=== PATIENT | female | born 1950 | race Caucasian/White ===

== ENCOUNTER → 2017-05-27 15:24 | Outpatient (CLI) | payer MEDICARE, OTHER, SELFPAY ==
--- NOTE | 2017-05-27 15:30 | RAD_ITS ---
STUDY: X-RAY - PELVIS REASON FOR EXAM: Female, 67 years old. Low back pain TECHNIQUE: One view of the pelvis was obtained. COMPARISON: None. FINDINGS: There is a non-specific bowel gas pattern. The soft tissues are unremarkable. There are mild degenerative changes in the lower lumbar spine. The visualized iliac wings, sacroiliac joints and sacrum are unremarkable. No abnormalities are seen in the visualized superior and inferior pubic rami. Normal appearing pubic symphysis. The visualized ischial tuberosities are unremarkable. The proximal right femur shows no significant abnormalities. The right acetabulum shows no significant abnormalities. The right hip joint is normal in appearance. The proximal left femur shows no significant abnormalities. The left acetabulum shows no significant abnormalities. The left hip joint is normal in appearance. RAD/Pelvis 1 or 2 Views IMPRESSION: No significant abnormalities are seen radiographically in the pelvis. Electronically Signed: Madelyn Gilliam MD at 16:35 EST Tel Direct: [phone], Service support ,
--- NOTE | 2017-05-27 15:35 | RAD_ITS ---
STUDY: X-RAY - LUMBAR SPINE REASON FOR EXAM: Female, 67 years old. TECHNIQUE: Five view(s) of the lumbar spine were obtained. COMPARISON: None FINDINGS: Normal lumbar lordosis. There is mild S-shaped scoliosis. There is normal alignment of the vertebrae. Osteophytes are scattered throughout the lumbar spine and visualized lower thoracic spine. Vertebral body heights are maintained. There is moderate disc space narrowing at T12-L1 and L1-2. There is mild disc space narrowing at L2-3 and L3-4. There is atherosclerotic calcification of the abdominal aorta without a demonstrated aneurysm. RAD/L/S Spine Min 4 Views IMPRESSION: There are degenerative changes scattered in the lumbar spine, most pronounced at T12-L1 and L1-2. Electronically Signed: Madelyn Gilliam MD at 16:36 EST Tel Direct: [phone], Service support ,
== END ==
PROVIDERS: Family Provider Family Medicine; PCP Family Medicine; Visit Provider Family Medicine
DX: M51.36 Other intervertebral disc degeneration, lumbar region (principal); M41.85 Other forms of scoliosis, thoracolumbar region; M25.78 Osteophyte, vertebrae; M48.05 Spinal stenosis, thoracolumbar region; R10.2 Pelvic and perineal pain
CPT/HCPCS: 72110; 72170

== ENCOUNTER → 2017-08-30 15:00 | Outpatient (CLI) | payer MEDICARE, OTHER, SELFPAY ==
--- NOTE | 2017-08-30 15:00 | DT_ITS ---
This patient was seen during an EMR downtime August 30, 2017 - September 06, 2017. This patient may have a combination of paper and electronic documentation or all paper documentation. All documentation is viewable within the e-chart portion of [facility] for each patient visit.
[2017-09-05 03:57] LABS: Red Blood Count 3.99 M/mm3 (4.2-5.4); White Blood Count 10.4 K/mm3 (4.4-11.0)
[2017-09-05 03:58] LABS: Absolute Lymphocyte Count 2.47 X10^3/ul (0.83-4.51); Absolute Neutrophil Count 6.6 X10^3/uL (2.0-7.7); Eosinophils% 3.9 % (0-5); Hematocrit 38.8 % (37-47); Lymphocyte # 2.47 X10^3/ul (4.0); Lymphocyte % 23.8 % (19-41); Mean Corp Hgb Conc 30.9 g/gl (32-36); Mean Corpuscular Hgb 30.1 pg (27.0-32.0); Mean Corpuscular Volume 97.2 fL (81-99); Mean Platelet Vol. 8.9 fl (6.2-12.0); Monocyte% 7.5 % (0-10); Neutrophil # 6.58 X10^3/uL (2.7-7.7); Neutrophil % 63.5 % (47-70); POSITIVE COUNT NO; POSITIVE DIFFERENTIAL NO; POSITIVE MORPHOLOGY NO; Platelet Count 405 K/mm3 (150-450); RBC Distribution Width CV 14.8 % (11.6-14.6); RBC Distribution Width SD 50.7 fl (35.1-43.9)
[2017-09-05 03:59] LABS: Monocyte# 0.78 X10^3/uL
[2017-09-05 04:30] LABS: BUN 13 mg/dL (7-18); Glucose 81 mg/dL (74-106)
[2017-09-05 04:31] LABS: AST(SGOT) 18 U/L (15-37); Albumin, Serum 4.1 g/dL (3.2-5.0); BUN/Creat Ratio 18.8 RATIO (10-20); Calcium,Total 9.8 mg/dL (8.5-10.1); Creatinine, Serum 0.69 mg/dL (0.55-1.02); EST Glomerular Filtration Rate 91 mL/min (>60); Est Glom Filt Rate - Afr Amer 110 mL/min (>60)
[2017-09-05 04:32] LABS: Alanine Aminotransfer ALT/SGPT 26 U/L (13-56); Alkaline Phosphatase 53 U/L (45-117)
[2017-09-05 04:33] LABS: Anion Gap 7 (5-15); Chloride 103 mmol/L (98-107); Cholesterol 149 mg/dL (200); High Density Lipoprotein 48 mg/dL; Potassium 3.7 mmol/L (3.5-5.1); Sodium Level 140 mmol/L (136-145); Triglycerides 118 mg/dL; Very Low Density Lipoprotein 24 mg/dL (5-40)
[2017-09-05 04:34] LABS: LDH 199 U/L (84-246); Rheumatoid Factor < 10.0 IU/mL (<15)
[2017-09-06 10:56] LABS: Vitamin D,25 Hydroxy 56.6 ng/mL (29.95-100.01)
== END ==
PROVIDERS: Family Provider Family Medicine; PCP Family Medicine; Visit Provider Family Medicine
DX: D47.2 Monoclonal gammopathy (principal); E78.5 Hyperlipidemia, unspecified; M25.50 Pain in unspecified joint; M54.5 Low back pain; L40.9 Psoriasis, unspecified; I10 Essential (primary) hypertension; Z51.81 Encounter for therapeutic drug level monitoring
CPT/HCPCS: 36415; 80053; 80061; 81374; 82306; 83615; 84165; 84166; 85025; 86038; 86140; 86200; 86431

== ENCOUNTER → 2017-09-21 09:15 | Outpatient (CLI) | payer MEDICARE, OTHER, SELFPAY ==
[2017-09-21 09:30] VITALS: PULSE 108; PULSE 109; PULSE 110; PULSE 111; PULSE 80; PULSE 83; PULSE 95; PULSE 98; O2SAT 85; O2SAT 87; O2SAT 89; O2SAT 90; O2SAT 91; O2SAT 97
--- NOTE | 2017-09-21 17:28 | WT_ITS ---
PSN 6 Minute Walk Test - 6 Minute Walk Test 6 Minute Walk Test: 6 Minute Walk Test PSN:6-Minute Walk Test Start: 09/21/17 10: 40 Freq: Status: Active Protocol: RESP.6MINW Document 09/21/17 09:30 HG (Rec: 09/21/17 10:43 HG [id number]) 6 Minute Walk Test Date Performed 09/21/17 Time Performed 09:30 Height 5 ft 3 in Weight: 106.141 kg Weight in Pounds 234.[address]: Vonnie Patel Assistive device used: None Pre-test Oxygen Delivery Method Room Air Pulse Ox (%) 91 Pulse Rate (60-100 beats/min) 80 Dyspnea Froilan Scale (0-10) 1 Exertion Froilan Scale (6-20) 6 1st minute Oxygen Delivery Method Room Air Pulse Ox (%) 85 Pulse Rate (60-100 beats/min) 98 2nd minute Oxygen Flow Rate (L/min) (L/min) 2 Oxygen Delivery Method Nasal Cannula Pulse Ox (%) 89 Pulse Rate (60-100 beats/min) 95 3rd minute Oxygen Flow Rate (L/min) (L/min) 2 Oxygen Delivery Method Nasal Cannula Pulse Ox (%) 87 Pulse Rate (60-100 beats/min) 109 H 4th minute Oxygen Flow Rate (L/min) (L/min) 3 Oxygen Delivery Method Nasal Cannula Pulse Ox (%) 90 Pulse Rate (60-100 beats/min) 108 H 5th minute Oxygen Flow Rate (L/min) (L/min) 3 Oxygen Delivery Method Nasal Cannula Pulse Ox (%) 89 Pulse Rate (60-100 beats/min) 110 H 6th minute Oxygen Flow Rate (L/min) (L/min) 3 Oxygen Delivery Method Nasal Cannula Pulse Ox (%) 90 Pulse Rate (60-100 beats/min) 111 H Post-test Oxygen Flow Rate (L/min) (L/min) 3 Oxygen Delivery Method Nasal Cannula Pulse Ox (%) 97 Pulse Rate (60-100 beats/min) 83 Dyspnea Froilan Scale (0-10) 1 Exertion Froilan Scale (6-20) 6 Full Laps Walked 17 Partial Lap, Number of Tiles Walked 0 Total Distance Walked (ft) 1003 - Interpretation Interpretation: The patient was noted to be 91% on room air. However, patient desaturated to 85 % within the first minute. The patient required a total of 3 L nasal cannula to maintain appropriate saturations throughout testing. In total, patient ambulated 1003 feet over the course of 6 minutes with no assistive devices. Patient did require one break secondary to dyspnea. These findings are consistent with a respiratory limitation exercise tolerance. - Recommendations Recommendations: The patient requires no supplemental oxygen at rest, but should be using 3 L nasal cannula oxygen with any exertion.
== END ==
PROVIDERS: Family Provider Family Medicine; PCP Family Medicine; Visit Provider Nurse Practitioner Acute Care
DX: J44.9 Chronic obstructive pulmonary disease, unspecified (principal)
CPT/HCPCS: 94618

== ENCOUNTER → 2017-09-22 12:55 | Outpatient (CLI) | payer MEDICARE, OTHER, SELFPAY ==
--- NOTE | 2017-09-23 11:33 | PFTCOMP ---
COMPLETE PULMONARY FUNCTION TEST INTERPRETATION Brief HPI: Patient is a 67 year old female, currently under the care of Vonnie Patel, who presents to [facility] for complete pulmonary function tests secondary to diagnosis of COPD. Respiratory therapist reports good effort and reproducible results. Interpretation: Forced expiration spirometry shows a moderately-severe large airways obstructive ventilatory defect with an FEV1 of 57% predicted. There is no significant bronchodilator response by ATS criteria. Spirograms are of good quality and plateau slowly, indicating slowly emptying areas of the lungs. The respiratory flow volume loop shows decreased expiratory flow rates at all lung volumes consistent with airway obstruction. Lung volumes by body plethysmography show a normal total lung capacity at 4.8 L, 103% predicted. FRC and RV are elevated out of proportion. Lung volume measurements are consistent with air-trapping. Diffusion capacity by carbon monoxide is decreased at 66% predicted. The airway resistance is elevated. No previous pulmonary function tests were available for review. Impression: Irreversible moderately severe large airways obstructive ventilatory defect with a symmetric reduction in diffusing capacity resulting in air trapping and consistent with the diagnosis of COPD.
== END ==
PROVIDERS: Family Provider Family Medicine; PCP Family Medicine; Visit Provider Nurse Practitioner Acute Care
DX: J44.9 Chronic obstructive pulmonary disease, unspecified (principal)
CPT/HCPCS: 94060; 94726; 94729

== ENCOUNTER → 2017-09-23 09:55 | Outpatient (CLI) | payer MEDICARE, OTHER, SELFPAY ==
--- NOTE | 2017-09-23 09:57 | ECHOD_ITS ---
Version 2 Reason For Study: DYSPNEA Procedure This was a 2D Doppler, Color Flow transthoracic echocardiogram. Exam performed in department. Left Ventricle Normal LV size. Left ventricular systolic function is normal. The estimated ejection fraction is 55 %. Transmitral and pulmonary venous doppler flow suggestive of impaired relaxation of left ventricle. Transmitral diastolic flow velocities suggest mild (stage 1) diastolic dysfunction (reversed pattern). No regional wall motion abnormalities noted. Right Ventricle Normal RV size. Normal systolic function. Atria Normal left atrium. Normal right atrium. Mitral Valve Normal mitral valve. Mild (1+) eccentric mitral valve insufficiency. Tricuspid Valve Normal tricuspid valve. Mild (1+) eccentric tricuspid valve insufficiency. Pulmonary artery systolic pressure is 33 mmHg. Aortic Valve Trisinus/trileaflet aortic valve. Pulmonic Valve Normal pulmonic valve. Great Vessels Normal aortic root. The pulmonary artery is normal size. Normal inferior vena cava. Pericardium/Pleural No pericardial effusion. MMode/2D Measurements & Calculations LVIDd: 5.0 cm IVSd: 0.91 cm Ao root diam: 3.2 cm LVIDs: 3.1 cm LVPWd: 0.93 cm RVDd: 3.7 cm FS: 39.0 % LAV(MOD-bp): 51.1 ml EDV(MOD-sp4): 109.4 ml EDV(MOD-sp2): 135.0 ml LAV(MOD-bp) Indexed: 24.9 ml/m2 ESV(MOD-sp4): 38.2 ml EF(MOD-sp2): 64.1 % LAV(MOD-sp2): 43.5 ml EF(MOD-sp4): 65.1 % LAV(MOD-sp4): 55.1 ml SV(MOD-sp4): 71.2 ml SV(MOD-sp2): 86.5 ml LA A4 area: 18.6 cm2 RA A4 area: 17.1 cm2 Time Measurements MV dec time: 0.23 sec Doppler Measurements & Calculations MV E max sergio: 96.4 cm/sec Lat Peak E' Sergio: 7.4 cm/sec Med Peak E' Sergio: 6.4 cm/sec MV A max sergio: 126.4 cm/sec E/E' lat: 13.0 E/E' med: 15.1 MV E/A: 0.76 Ao V2 max: 168.8 cm/sec LV V1 max: 140.0 cm/sec TR max sergio: 266.8 cm/sec Ao max P.4 mmHg LV V1 max P.8 mmHg TR max P.5 mmHg Interpretation Summary Normal LV size. Left ventricular systolic function is normal. The estimated ejection fraction is 55 %. Transmitral and pulmonary venous doppler flow suggestive of impaired relaxation of left ventricle Transmitral diastolic flow velocities suggest mild (stage 1) diastolic dysfunction (reversed pattern). Pulmonary artery systolic pressure is 33 mmHg. Ordering Physician: Vonnie Patel Referring Physician: Vonnie Patel Performed By: Lorena Brian, DOE, RVT
== END ==
PROVIDERS: Family Provider Family Medicine; PCP Family Medicine; Visit Provider Nurse Practitioner Acute Care
DX: R06.02 Shortness of breath (principal)
CPT/HCPCS: 93306

== ENCOUNTER → 2017-10-28 10:47 | Outpatient (CLI) | payer MEDICARE, OTHER, SELFPAY ==
[2017-10-28 11:35] VITALS: PULSE 102; PULSE 106; PULSE 107; PULSE 108; PULSE 109; PULSE 80; PULSE 84; O2SAT 87; O2SAT 90; O2SAT 91; O2SAT 92; O2SAT 94; O2SAT 96
--- NOTE | 2017-10-28 13:21 | WT_ITS ---
PSN 6 Minute Walk Test - 6 Minute Walk Test 6 Minute Walk Test: 6 Minute Walk Test PSN:6-Minute Walk Test Start: 10/28/17 11: 35 Freq: Status: Active Protocol: RESP.6MINW Document 10/28/17 11:35 SMB (Rec: 10/28/17 11:39 SMB [id number]) 6 Minute Walk Test Date Performed 10/28/17 Time Performed 10:52 Height 5 ft 3 in Weight: 230 lb Weight in Pounds 230.[address]: Tyron Steward Assistive device used: None Pre-test Oxygen Delivery Method Room Air Pulse Ox (%) 94 Pulse Rate (60-100 beats/min) 80 1st minute Oxygen Delivery Method Room Air Pulse Ox (%) 87 Pulse Rate (60-100 beats/min) 107 H 2nd minute Oxygen Flow Rate (L/min) (L/min) 2 Oxygen Delivery Method Nasal Cannula Pulse Ox (%) 92 Pulse Rate (60-100 beats/min) 106 H 3rd minute Oxygen Flow Rate (L/min) (L/min) 2 Oxygen Delivery Method Nasal Cannula Pulse Ox (%) 90 Pulse Rate (60-100 beats/min) 109 H 4th minute Oxygen Flow Rate (L/min) (L/min) 2 Oxygen Delivery Method Nasal Cannula Pulse Ox (%) 91 Pulse Rate (60-100 beats/min) 102 H 5th minute Oxygen Flow Rate (L/min) (L/min) 2 Oxygen Delivery Method Nasal Cannula Pulse Ox (%) 91 Pulse Rate (60-100 beats/min) 108 H 6th minute Oxygen Flow Rate (L/min) (L/min) 2 Oxygen Delivery Method Nasal Cannula Pulse Ox (%) 92 Pulse Rate (60-100 beats/min) 108 H Post-test Oxygen Flow Rate (L/min) (L/min) 2 Oxygen Delivery Method Nasal Cannula Pulse Ox (%) 96 Pulse Rate (60-100 beats/min) 84 Dyspnea Froilan Scale (0-10) 0.5 Exertion Froilan Scale (6-20) 11 Full Laps Walked 12 Partial Lap, Number of Tiles Walked 4 Total Distance Walked (ft) 712 - Interpretation Interpretation: The patient ambulated 712 feet over the course of 6 minutes beginning on room air without assistive devices or breaks. Pretesting oxygen saturation was noted to be 94% on room air. With ambulation, the amador oxygen saturation was 87% a minute #1 of testing. 2 L of supplemental oxygen was applied and the patient was able to complete the remainder of the test, while maintaining oxygen saturations at or above 88%. The patient did develop exertional tachycardia. There was evidence of significant exertional oxygen desaturation, consistent with a pulmonary limitation to exercise tolerance. - Recommendations Recommendations: 2 L/min of supplemental oxygen should be utilized with exertion.
== END ==
PROVIDERS: Family Provider Family Medicine; PCP Family Medicine; Visit Provider Internal Medicine Critical Care Medicine
DX: J44.9 Chronic obstructive pulmonary disease, unspecified (principal)
CPT/HCPCS: 94618

== ENCOUNTER 2017-11-01 11:30 | Outpatient (RCR) | payer MEDICARE, OTHER, SELFPAY ==
--- NOTE | 2017-10-18 12:56 | HP.PTEVAL ---
Patient's Visit Information YOBANI BANUELOS is a 67 year old F referred to Physical Therapy by Ana Winslow DO with a diagnosis of low back pain, chronic pain, and radiculopathy of lumbosacral region. Date of Evaluation: 10/13/17 Physical Therapist: Rocael Reid - Visit Plan Frequency: 2x /Week Duration: 4 Weeks Plan: Start with TA activiation, progress lumbar extension progression as tolerated. HS and IT band stretching. Progress as pt. tolerates. May use modalities to reduce symptoms. - Subjective Subjective: Pt. is here today for her initial evaluation with diagnosis of low back pain, chronic pain, and radiculopathy of lumbosacral region. Pt. reports having pain for many years, but has been prgressively getting worse recently. Pt. reports previously that her physician wanted her to get an MRI, but due to be very claustrophobic she is unwilling to use an MRI. Pt. reports being curious about physician using the my eye tool to possibly view arthroscopically. I talked to patient that the physician who uses here is only currently using this device in the knee. Pt. reports her pain radiates from her back down both legs. Pt. denies N/T. Pt. denies any changes in B/B. No BLE weakness reported. Pt. is hopeful to reduce symptoms in order to get back to all recreational activities without issues or limitations. - Pain lumbar spine Pain Intensity (Out of 10): 4 Pain Intensity Range: 2, 6 B posterior thighs Pain Intensity (Out of 10): 3 Pain Intensity Range: 1, 6 - Objective POSTURE: Pt. has decreased lumbar lordosis, rounded shoulders. Pt. has normal DARLENE in stance, anterior pelvic tilt. PALPATION: Pt. has increased tenderness throughout lumbar spine and into gluteal region. Pt. also has pain at bilateral greater trochanters. NEUROLOGICAL: Pt. has normal senstation to light and sharp touch. pt. has 2+ bilateral DTR of achilles and patellar tendons. Pt. is able to rise on heels and toes without issues. ROM: Lumbar spine: flexion mod loss increase NW, ext mod loss mild decrease NB, SB R min loss increase NW, SB L nil loss NE, rotation R min loss increase NW, rotation L nil loss NE. Pt. has normal hip ROM, except tight HS and tight IT bands bilaterally. MMT: RLE- ankle 5/5 throughout; knee- ext 4+/5, flexion 4/5; hip- flexion 4/5 increase nW, abd 4/5 NE, ext 4/5. LLE-ankle 5/5 throughout; knee- ext 4+/5, flexion 4/5; hip- flexion 4/5 increase nW, abd 4/5 NE, ext 4/5. Core strength- poor. GAIT: Pt. has increased bilateral hip sway laterally during stance phase. Pt. has slight flexed posture. Pt. has no antalgic pattern, but reports increased pain with every step. STAIRS: Pt. is able to negotiate with step to pattern with 1 HR without LOB, increased pain with ascending, no pain with descending. - Special Tests L/S Slump test left side: Positive L/S Slump test right side: Positive L/S Left Straight Leg Raise: Positive L/S Right Straight Leg Raise: Positive Lumbar Standing: Flexion - Mechanical Response: No effect Lumbar Standing: Flexion - Symptoms During Testing: Increases Lumbar Standing: Flexion - Symptoms After Testing: No worse Lumbar Standing: Extension - Mechanical Response: No effect Lumbar Standing: Extension - Symptoms During Testing: Decreases Lumbar Standing: Extension - Symptoms After Testing: No better Lumbar Standing: Right Side Glides - Mechanical Response: No effect Lumbar Standing: Right Side [place] - Symptoms During Testing: No effect Lumbar Standing: Right Side [place] - Symptoms After Testing: No effect Lumbar Standing: Left Side [place] - Mechanical Response: No effect Lumbar Standing: Left Side [place] - Symptoms During Testing: No effect Lumbar Standing: Left Side [place] - Symptoms After Testing: No effect Lumbar Lying: Flexion - Mechanical Response: No effect Lumbar Lying: Flexion - Symptoms During Testing: No effect Lumbar Lying: Flexion - Symptoms After Testing: No effect Lumbar Lying: Extension - Mechanical Response: No effect Lumbar Lying: Extension - Symptoms During Testing: Decreases Lumbar Lying: Extension - Symptoms After Testing: No better Lumbar Static: Slouched Sit - Mechanical Response: No effect Lumbar Static: Slouched Sit - Symptoms During Testing: Increases Lumbar Static: Slouched Sit - Symptoms After Testing: No worse Lumbar Static: Sitting Erect - Mechanical Response: No effect Lumbar Static: Sitting Erect - Symptoms During Testing: No effect Lumbar Static: Sitting Erect - Symptoms After Testing: No effect Lumbar Static:Lying Prone in Extension - Mechanical Response: No effect Lumbar Static: Lying Prone in Extension - Sx During Testing: Decreases Lumbar Static: Lying Prone in Extension - Sx After Testing: No better - Goals Goal 1:: Pt. to be I with HEP. Goal Time Frame: 4-6 Weeks Goal 2:: Pt. to have increased lumbar ROm by 25% in all directions without increase in symptoms. Goal Time Frame: 4-6 Weeks Goal 3:: Pt. to have increased BLE and core strength by 1/2 grade to reduce stress applied to lumbar spine with all functional mobility. Goal Time Frame: 4-6 Weeks Goal 4:: Pt. to ambulate unlimited distances with 0-2/10 pain in lumbar spine and BLEs. Goal Time Frame: 4-6 Weeks Goal 5:: Pt. to sleep throughout the night without increase in symptoms allowing for increased quality of life. Goal Time Frame: 4-6 Weeks - Rehabilitation Potential Physical Therapy Diagnosis: Pt. has signs and symptoms of radiating pain from lumbosacral region, down boths legs. Pt. appears to have a positive response with extension motions this date. Pt. also has tight HS and tigh IT band coupled with BLE/core weakness. Pt. would benefit from PT to increase lumbar ROM, core/hip strength in order to reduce stress applied to lumbar spine with all functional mobility. Rehabilitation Potential: Fair - Anticipated Interventions Patient/Client Instruction: Educate patient on: Condition, Plan of Care, Risk Factors, Benefits of Fitness Program For the Purpose of:: To improve decision making, To improve self management, To prevent re-injury, To improve ability to perform tasks related to life management, To improve tolerance to ADL's Therapeutic Exercise to Include: Strength training, Power training, Endurance training, Postural training, Flexibilty training, Passive ROM, Active ROM, Dynamic Lumbar Stabilization, Rafael Exercises For the Purpose of:: To decrease pain, To increase ROM, To improve nutrient delivery to tissue, To increase oxygenation perfusion, To improve muscle performance and motor function, To improve ability to perform ADL's, To increase tolerance to activity/condition/position, To improve performance and independence with ADL's, To decrease level of supervision to perform tasks, To decrease soft tissue restriction, To increase flexibility/ROM Manual Therapy Techniques to Include: Mobilization, Functional dry needling For the Purpose of:: To decrease pain, To decrease swelling/inflammation, To increase ROM, To improve nutrient delivery to tissue, To increase oxygenation perfusion, To improve muscle performance and motor function IF ES: Yes Cryotherapy (ice pack, ice massage): Yes Thermo therapy (hot pack): Yes Ultrasound (thermal/non thermal): Yes For the Purpose of:: To decrease pain, To decrease swelling/inflammation, To increase ROM, To improve nutrient delivery to tissue, To increase oxygenation perfusion, To improve muscle performance and motor function Thank you for the opportunity to evaluate your patient. For Medicare and Medicare HMO plans, please review the plan of care and approve it. It will need to be FAXED BACK to us at [phone] for Medicare purposes. Please let me know if there are questions or concerns regarding this plan of care. Physician Signature: Date:
--- NOTE | 2017-11-01 13:24 | HP.PTREVAL_ITS ---
Ana Winslow DO, It has been my pleasure to treat YOBANI BANUELOS over the last 3 visits for low back pain, chronic pain, and radiculopathy of lumbosacral region. Please see the progress note below for an update on the physical therapy plan of care! Subjective: Pt. reports my symptoms are about the same overall. She reports being HEP compliant throughout the last 2 weeks. Pt. reports constant pain in bilateral HS and lumbar spine. She is also getting pain in anterior knees. Pt. reports ~10% better overall. Objective/Function: Pt. has been given exercises to work on neutral spine core strengthening, HS stretching, and SKTC to relieve symptoms. Pt. desires to trial these exercises on her own now. Pt. is independent with HEP and has reduced symptoms with flexion based exercises, but symptoms resume with standing positioning. She would benefit from further core strengthening to stablize her lumbar spine and reduce stress applied to lumbar spine with all functional mobility. Plan Plan: Pt. to trial SKCT and neutral spine core strengthening on her own. She continues to have distal symptoms with all walking/standing. Pt. to follow up with physician at this point in time and determine best course of action. Goals Goal 1:: Pt. to be I with HEP. Goal Time Frame: 4-6 Weeks Goal Progress: Goal Met Goal 2:: Pt. to have increased lumbar ROm by 25% in all directions without increase in symptoms. Goal Time Frame: 4-6 Weeks Goal Progress: Progressing Goal 3:: Pt. to have increased BLE and core strength by 1/2 grade to reduce stress applied to lumbar spine with all functional mobility. Goal Time Frame: 4-6 Weeks Goal Progress: Progressing Goal 4:: Pt. to ambulate unlimited distances with 0-2/10 pain in lumbar spine and BLEs. Goal Time Frame: 4-6 Weeks Goal Progress: Not Progressing Goal 5:: Pt. to sleep throughout the night without increase in symptoms allowing for increased quality of life. Goal Time Frame: 4-6 Weeks Anticipated Interventions Patient/Client Instruction: Educate patient on: Condition, Plan of Care, Risk Factors, Benefits of Fitness Program For the Purpose of:: To improve decision making, To improve self management, To prevent re-injury, To improve ability to perform tasks related to life management, To improve tolerance to ADL's Therapeutic Exercise to Include: Strength training, Power training, Endurance training, Postural training, Flexibilty training, Passive ROM, Active ROM, Dynamic Lumbar Stabilization, Rafael Exercises For the Purpose of:: To decrease pain, To increase ROM, To improve nutrient delivery to tissue, To increase oxygenation perfusion, To improve muscle performance and motor function, To improve ability to perform ADL's, To increase tolerance to activity/condition/position, To improve performance and independence with ADL's, To decrease level of supervision to perform tasks, To decrease soft tissue restriction, To increase flexibility/ROM Manual Therapy Techniques to Include: Mobilization, Functional dry needling For the Purpose of:: To decrease pain, To decrease swelling/inflammation, To increase ROM, To improve nutrient delivery to tissue, To increase oxygenation perfusion, To improve muscle performance and motor function IF ES: Yes Cryotherapy (ice pack, ice massage): Yes Thermo therapy (hot pack): Yes Ultrasound (thermal/non thermal): Yes For the Purpose of:: To decrease pain, To decrease swelling/inflammation, To increase ROM, To improve nutrient delivery to tissue, To increase oxygenation perfusion, To improve muscle performance and motor function Please do not hesitate to contact me at [phone] by phone or Fax: if you have questions or concerns regarding this new plan of care! Sincerely, Rocael Reid
--- NOTE | 2018-01-06 11:17 | HP.PT.NRP ---
HP - Discharge Summary (1) - Patient Information YOBANI BANUELOS was seen in my office for initial evaluation on 10/13/17. The following Plan of Care was established for this patient: Initial Frequency: 2x /Week Initial Duration: 4 Weeks - Anticipated Interventions Patient/Client Instruction: Educate patient on: Condition, Plan of Care, Risk Factors, Benefits of Fitness Program For the Purpose of:: To improve decision making, To improve self management, To prevent re-injury, To improve ability to perform tasks related to life management, To improve tolerance to ADL's Therapeutic Exercise to Include: Strength training, Power training, Endurance training, Postural training, Flexibilty training, Passive ROM, Active ROM, Dynamic Lumbar Stabilization, Rafael Exercises For the Purpose of:: To decrease pain, To increase ROM, To improve nutrient delivery to tissue, To increase oxygenation perfusion, To improve muscle performance and motor function, To improve ability to perform ADL's, To increase tolerance to activity/condition/position, To improve performance and independence with ADL's, To decrease level of supervision to perform tasks, To decrease soft tissue restriction, To increase flexibility/ROM Manual Therapy Techniques to Include: Mobilization, Functional dry needling For the Purpose of:: To decrease pain, To decrease swelling/inflammation, To increase ROM, To improve nutrient delivery to tissue, To increase oxygenation perfusion, To improve muscle performance and motor function IF ES: Yes Cryotherapy (ice pack, ice massage): Yes Thermo therapy (hot pack): Yes Ultrasound (thermal/non thermal): Yes For the Purpose of:: To decrease pain, To decrease swelling/inflammation, To increase ROM, To improve nutrient delivery to tissue, To increase oxygenation perfusion, To improve muscle performance and motor function This patient was last seen in our office 11/01/17. Pertinent comments regarding their Physical therapy will appear below: Pt. was seen in PT for her low back pain and bilateral hip pain. Pt. was making minimal progress and at our last visit pt. was to follow back up with physician. Pt. has not been seen in ~2 months and will be DC from PT at this point in time. At this point I will be discontinuing this patient from physical therapy. I would be happy to see this patient again in the future if found appropriate by the physician. Thank you! Rocael Reid
== END 2017-11-01 19:00 | disposition home or self-care (01) ==
LOC: PT 11:30
PROVIDERS: Family Provider Family Medicine; PCP Family Medicine; Visit Provider Family Medicine
DX: M54.5 Low back pain (principal); G89.29 Other chronic pain; M54.17 Radiculopathy, lumbosacral region
CPT/HCPCS: 97012; 97110; 97162

== ENCOUNTER → 2018-01-06 15:51 | Outpatient (CLI) | payer MEDICARE, OTHER, SELFPAY ==
--- NOTE | 2018-01-06 16:00 | RAD_ITS ---
STUDY: X-RAY - LEFT KNEE REASON FOR EXAM: Female, 67 years old. Left knee pain without reported injury TECHNIQUE: 4 view(s) of the knee. COMPARISON: None. FINDINGS: Normal visualized distal femur. Normal visualized proximal tibia and fibula. Normal proximal tibiofibular articulation. Normal medial femorotibial compartment. Normal lateral femorotibial compartment. 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 There is a soft tissue prominence in the suprapatellar region suggesting a small volume joint effusion. The soft tissue structures are unremarkable. RAD/Knee 4 or More Views IMPRESSION: Patellofemoral joint arthrosis. Very small joint effusion. Electronically Signed: Gomez Freed MD at 8:48 EDT , Service support ,
== END ==
PROVIDERS: Family Provider Family Medicine; PCP Family Medicine; Referring Provider Family Medicine; Visit Provider Family Medicine
DX: M17.12 Unilateral primary osteoarthritis, left knee (principal)
CPT/HCPCS: 73564

== ENCOUNTER → 2018-02-28 10:06 | Outpatient (CLI) | payer MEDICARE, OTHER, SELFPAY ==
[2018-02-28 12:41] LABS: Absolute Lymphocyte Count 2.66 X10^3/ul (0.83-4.51); Absolute Neutrophil Count 5.6 X10^3/uL (2.0-7.7); Basophil# 0.08 X10^3/uL; Basophil% 0.8 % (0-1); Eosinophil# 0.53 X10^3/uL; Eosinophils% 5.5 % (0-5); Hematocrit 37.1 % (37-47); Hemoglobin 11.9 g/dl (12.0-15.0); Lymphocyte # 2.66 X10^3/ul (4.0); Lymphocyte % 27.6 % (19-41); Mean Corp Hgb Conc 32.1 g/gl (32-36); Mean Corpuscular Hgb 30.7 pg (27.0-32.0); Mean Corpuscular Volume 95.9 fL (81-99); Mean Platelet Vol. 8.9 fl (6.2-12.0); Monocyte# 0.78 X10^3/uL; Monocyte% 8.1 % (0-10); Neutrophil # 5.55 X10^3/uL (2.7-7.7); Neutrophil % 57.7 % (47-70); Platelet Count 403 K/mm3 (150-450); RBC Distribution Width CV 14.9 % (11.6-14.6); RBC Distribution Width SD 50.3 fl (35.1-43.9); Red Blood Count 3.87 M/mm3 (4.2-5.4); White Blood Count 9.6 K/mm3 (4.4-11.0)
[2018-02-28 12:42] LABS: POSITIVE COUNT NO; POSITIVE DIFFERENTIAL NO; POSITIVE MORPHOLOGY NO
[2018-02-28 12:53] LABS: ALB/GLOB Ratio 0.9 RATIO (0.9-2.4); AST(SGOT) 15 U/L (15-37); Alanine Aminotransfer ALT/SGPT 23 U/L (13-56); Albumin, Serum 3.9 g/dL (3.2-5.0); Alkaline Phosphatase 58 U/L (45-117); Anion Gap 6 (5-15); BUN 20 mg/dL (7-18); BUN/Creat Ratio 28.3 RATIO (10-20); Calcium,Total 9.8 mg/dL (8.5-10.1); Chloride 102 mmol/L (98-107); Cholesterol 152 mg/dL (200); Creatinine, Serum 0.71 mg/dL (0.55-1.02); EST Glomerular Filtration Rate 88 mL/min (>60); Est Glom Filt Rate - Afr Amer 107 mL/min (>60); Globulin 4.4 g/dL (2.2-4.2); Glucose 75 mg/dL (74-106); High Density Lipoprotein 59 mg/dL; LDH 164 U/L (84-246); Potassium 3.5 mmol/L (3.5-5.1); Protein, Total 8.3 g/dL (6.4-8.2); Sodium Level 139 mmol/L (136-145); Triglycerides 103 mg/dL; Very Low Density Lipoprotein 21 mg/dL (5-40)
[2018-03-01 14:06] LABS: PROEL- Albumin 3.8 g/dL (2.9-4.4); PROEL- Alpha-1 Globulin 0.3 g/dL (0.0-0.4); PROEL- Gamma Globulin 1.5 g/dL (0.4-1.8); PROEL- Globulin, Total 3.8 g/dL (2.2-3.9); PROEL- TOTAL PROTEIN 7.6 g/dL (6.0-8.5)
[2018-03-02 11:20] LABS: PROELU- Albumin, Urine 28.5 % (.); PROELU- Alpha-1-Globulin,Ur 13.5 % (.); PROELU- Alpha-2-Globulin,Ur 21.3 % (.); PROELU- Beta Globulin, Ur 17.6 % (.)
[2018-03-03 10:04] LABS: Total Protein, Ur < 4.0 mg/dL (Not Estab.)
--- OUTSIDE RECORDS SUMMARY | 2018-04-23 15:03 | XMS RPT_ITS ---
:1950 Author Organization OHIP Support Name Relationship Address Phone MELARAGNO, SHANDA Unavailable [address] + [place] [address] R Unavailable Unavailable Unavailable MELARAGNO, SHANDA Unavailable [address] + [place] [address] R Unavailable Unavailable Unavailable MELARAGNO, SHANDA Unavailable [address] + [place] [address] R Unavailable Unavailable Unavailable MELARAGNO, SHANDA Unavailable [address] + [place] [address] R Unavailable Unavailable Unavailable MELARAGNO, SHANDA Unavailable [address] + [place] [address] R Unavailable Unavailable Unavailable MELARAGNO, SHANDA Unavailable [address] + [place] [address] R Unavailable Unavailable Unavailable MELARAGNO, SHANDA Unavailable [address] + [place] [address] R Unavailable Unavailable Unavailable MELARAGNO, SHANDA Unavailable [address] + [place] [address] R Unavailable Unavailable Unavailable MELARAGNO, SHANDA Unavailable [address] + [place] [address] R Unavailable Unavailable Unavailable MELARAGNO, SHANDA Unavailable [address] + [place] [address] R Unavailable Unavailable Unavailable MELARAGNO, SHANDA Unavailable [address] + [place] [address] R Unavailable Unavailable Unavailable MELARAGNO, SHANDA Unavailable [address] + [place] [address] R Unavailable Unavailable Unavailable MELARAGNO, SHANDA Unavailable [address] + [place] [address] R Unavailable Unavailable Unavailable MELARAGNO, SHANDA Unavailable [address] + [place] [address] R Unavailable Unavailable Unavailable MELARAGNO, SHANDA Unavailable [address] + [place] [address] R Unavailable Unavailable Unavailable MELARAGNO, SHANDA Unavailable [address] + [place] [address] R Unavailable Unavailable Unavailable MELARAGNO, SHANDA Unavailable [address] + [place] [address] R Unavailable Unavailable Unavailable MELARAGNO, SHANDA Unavailable [address] + [place] [address] R Unavailable Unavailable Unavailable MELARAGNO, SHANDA Unavailable [address] + [place] [address] R Unavailable Unavailable Unavailable Care Team Providers Name Role Phone MALYS, ANA A Referring Unavailable MALYS, ANA A Referring Unavailable Tiera Adame Attending Unavailable Vonnie Patel Attending Unavailable Culman, Nadia Referring Unavailable Malys, Ana Attending Unavailable Culman, Nadia Primary Care Unavailable Malys, Ana Attending Unavailable Malys, Ana Referring Unavailable Malys, Ana Primary Care Unavailable Malys, Ana Attending Unavailable Malys, Ana Primary Care Unavailable Vonnie Patel Attending Unavailable Malys, Ana Referring Unavailable Malys, Ana Attending Unavailable Malys, Ana Referring Unavailable Malys, Ana Primary Care Unavailable Vonnie Patel Attending Unavailable Amanda, Vonnie Referring Unavailable Malys, Ana Primary Care Unavailable Vonnie Patel Attending Unavailable Amanda, Vonnie Referring Unavailable Malys, Ana Primary Care Unavailable Vonnie Patel Attending Unavailable Amanda, Vonnie Referring Unavailable Malys, Ana Primary Care Unavailable Malys, Ana Attending Unavailable Malys, Ana Primary Care Unavailable Malys, Ana Referring Unavailable Tyron Steward D.O. Attending Unavailable Malys, Ana Referring Unavailable Lenin Murillo Attending Unavailable Vonnie Patel Referring Unavailable Lenin Murillo Attending Unavailable Vonnie Patel Referring Unavailable Tyron Steward D.O. Attending Unavailable Tyron Steward D.O. Referring Unavailable Malys, Ana Primary Care Unavailable Tay Adkins Attending Unavailable Tyron Steward D.O. Attending Unavailable Tyron Steward D.O. 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 / Community D47.2(ICD-10) Hospital Repository 02/28/2018 Unknown Z51.81 - Encounter Malys, Ana Active [facility] for therapeutic drug Community level monitoring / Hospital Z51.81(ICD-10) Repository 02/28/2018 Unknown E78.5 - Malys, Ana Active [facility] Hyperlipidemia, Community unspecified / Hospital E78.5(ICD-10) Repository 02/28/2018 Unknown M54.5 - Low back Malys, Ana Active [facility] pain / M54.5(ICD-10) Community Hospital Repository 02/28/2018 Unknown G89.29 - Other Malys, Ana Active [facility] chronic pain / Community G89.29(ICD-10) Hospital Repository 01/06/2018 Unknown M25.562 - Pain in Malys, Ana Active [facility] left knee / Community M25.562(ICD-10) Hospital Repository 11/04/2017 Unknown J44.9 - Chronic Tyron Steward Active [facility] obstructive D.O. [facility] pulmonary disease, Hospital unspecified / Repository J44.9(ICD-10) 09/23/2017 Unknown R06.09 - Other forms Amanda Active [facility] of dyspnea / [facility] Community R06.09(ICD-10) Hospital Repository 05/27/2017 Unknown M51.36 - Other Malys, Ana Active [facility] intervertebral disc Community degeneration, lumbar Hospital region / Repository M51.36(ICD-10) 05/06/2017 Unknown I10 - Essential Malys, Ana Active [facility] (primary) Community hypertension / Hospital I10(ICD-10) Repository PROCEDURES PROCEDURES No Procedure Records FoundRESULTS RESULTS CNCO Observed: 03/14/2018 Status: COMPLETED Source: [place] 4:38 PM [facility] REPOSITORY HNO ID: [id number] Author: Mammography Coordinator Service: (none) Author Type: Physician Type: Letter Filed: 2018 11:33 PM Note Text: March 14, 2018 PID: [id number] Aury Banuelos [address] [place] [address] Dear Ms. Banuelos, We are pleased to inform you that the results of your recent breast imaging exam on 03/14/2018 are normal. Early detection of cancer is very important. We also understand recommendations regarding breast cancer screening are controversial. Please discuss with your primary care provider which strategy is best for you and whether a mammogram is right for you. Your imaging studies and report will be kept on file at [facility] as part of your permanent medical record and are available for your continuing care. Thank you for allowing us to help in meeting your health care needs. Sincerely, Dr. Sarmiento Interpreting Radiologist [facility] (Normal over 40) PROGRESS Observed: 03/14/2018 Status: COMPLETED Source: [place] 10:17 AM [facility] REPOSITORY HNO ID: [id number] Author: Stephanie Alamo Service: (none) Author Type: (none) Type: Progress Notes Filed: 03/14/2018 10:32 AM Note Text: Aury Banuelos March 14, 2018 [id number] Double identification: Patient identified by name and Bone Density Completed. Stephanie Richardson Rt patient told of radiation jk 10:30am not CHELLE SCREENING Observed: 03/14/2018 Status: F Source: [place] 9:59 AM [facility] REPOSITORY * * *Final Report* * * DATE OF EXAM: Mar 14 2018 9:59AM WOW 0581 - CHELLE SCREENING / PROCEDURE REASON: SCR * * * * Physician Interpretation * * * * RESULT: #[id number] - CHELLE SCREENING BILATERAL DIGITAL SCREENING MAMMOGRAM WITH CAD: 03/14/2018 HISTORY: /Screening Mammogram - patient reports NO breast symptoms /Priors available for comparison. RESULT: TECHNIQUE: The study was acquired using full field digital technology and interpreted from soft copy. Current study was also evaluated with a Computer Aided Detection (CAD). Comparison is made to exams dated: 02/16/2017 mammogram, 02/07/2016 mammogram, 12/24/2014 mammogram, and 11/07/2013 mammogram - [facility]. There are scattered fibroglandular elements in both breasts. No significant masses, calcifications, or other findings are seen in either breast. There has been no significant interval change. IMPRESSION: There is no mammographic evidence of malignancy. A 1 year screening mammogram is recommended. Frances patterson/jarod:03/14/2018 16:38:53 Hospital Admitting Clerk(s): Rebecca Hernandez RT(R)(M), [facility] letter sent: Normal over 40 Mammogram BI-RADS: 1 Negative Multiple national specialty organizations have released breast cancer screening guidelines for women at average risk for developing breast cancer - guidelines that are based on both evidence and opinion, yet differ on when to start and how often to screen for breast cancer. With representation from Breast Imaging, Internal Medicine, Women's Health, Family Medicine, and Medical/Surgical Oncology, the [facility] has carefully reviewed the data and reached the following consensus: 1) All women should engage in shared decision-making with their providers to decide when to start and how often to screen; 2) All women should have the opportunity to start screening mammography at age 40; 3) For women ages 45-55, we recommend annual screening mammograms; 4) For women ages 55 and over, we support both the transition from an annual to a biennial interval if this aligns more with patient's values and preferences, or continuation with annual screening; 5) All women should discuss with their providers when to stop screening mammograms. [facility] Picker: Jarod Transcribe Date/Time: Mar 14 2018 9:39A Dictated by: FRANCES SARMIENTO MD This examination was interpreted and the report reviewed and electronically signed by: FRANCES SARMIENTO MD on Mar 14 2018 4:38PM EST [id number] CBC W/DIFF, AUTOMATED Collected: 02/28/2018 Status: F Source: [place] 10:10 AM [facility] REPOSITORY TYPE CODE TESTS RESULT OUT OF RANGE REFERENCE UNITS LAB L100.1000 4.4-11.0 K/mm3 Normal WBC 9.6 LAB L100.1200 4.2-5.4 M/mm3 Low RBC 3.87 LAB L100.1300 12.0-15.0 g/dl Low HGB 11.9 LAB L100.1400 37-47 % Normal HCT 37.1 LAB L100.1500 81-99 fL Normal MCV 95.9 LAB L100.1600 27.0-32.0 pg Normal MCH 30.7 LAB L100.1700 32-36 g/gl Normal MCHC 32.1 LAB L100.1810 11.6-14.6 % High RDW CV 14.9 LAB L100.1820 35.1-43.9 fl High RDW SD 50.3 LAB L100.1900 150-450 K/mm3 Normal PLT 403 LAB L100.2000 6.2-12.0 fl Normal MPV 8.9 LAB L100.2100 47-70 % Normal NEUT% 57.7 LAB L100.2200 19-41 % Normal LY% 27.6 LAB L100.2300 0-10 % Normal MONO% 8.1 LAB L100.2400 0-5 % High EO% 5.5 LAB L100.2500 0-1 % Normal BASO% 0.8 LAB L100.2550 0.0-0.9 % Normal IM GRAN % 0.300 Result Comment: IG% - Immature Granulocytes (promyelocytes, myelocytes and metamyelocytes) > 1% indicates that a LEFT SHIFT is Present. LAB L100.2620 2.0-7.7 X10 3/uL Normal Absolute Neut 5.6 LAB L100.2720 0.83-4.51 X10 3/ul Normal Absolute Lymph 2.66 Performed By: #### L100.0100 #### [facility] [address] [place], [address] COMPREHENSIVE METABOLIC Collected: 02/28/2018 Status: F Source: [facility] 10:10 AM [facility] REPOSITORY Order Comment: Serial Specimen #1, #2 or #3? 1 TYPE CODE TESTS RESULT OUT OF RANGE REFERENCE UNITS LAB L501.0100 74-106 mg/dL Normal GLU 75 Result Comment: Please note revised GLUCOSE reference range effective 2017. LAB L501.1000 7-18 mg/dL High BUN 20 LAB L501.1100 0.55-1.02 mg/dL Normal CREAT,SERUM 0.71 Result Comment: The validity of the calculated GFR AND GFRAA in patients over 70 years has not been determined. Clinical correlation is essential. LAB L501.1110 >60 mL/min Normal EST GFR 88 Result Comment: Non- GFR Calc LAB L501.1115 >60 mL/min Normal EST GFR - AA 107 Result Comment: GFR Calc LAB L501.1300 10-20 RATIO High BUN/CRE 28.3 LAB L501.1500 6.4-8.2 g/dL High T PROT 8.3 LAB L501.1800 3.2-5.0 g/dL Normal ALB 3.9 LAB L501.1950 2.2-4.2 g/dL High GLOB 4.4 LAB L501.2000 0.9-2.4 RATIO Normal A/G 0.9 LAB L501.2200 8.5-10.1 mg/dL CA Normal 9.8 LAB L501.4100 15-37 U/L Normal AST 15 LAB L501.4305 45-117 U/L Normal ALK P 58 LAB L501.4405 13-56 U/L Normal ALT 23 LAB L501.4600 0.20-1.00 mg/dL T Normal BILI 0.50 LAB L501.5300 136-145 mmol/L NA Normal 139 LAB L501.5600 3.5-5.1 mmol/L K Normal 3.5 LAB L501.5900 98-107 mmol/L CL Normal 102 LAB L501.6100 21.0-32.0 mmol/L Normal CO2 31.0 LAB L501.6200 5-15 Normal GAP 6 Performed By: #### L500.4050, L500.4100, L504.2610 #### [facility] [address] [place], [place], [address] LIPID PROFILE Collected: 02/28/2018 Status: F Source: [place] 10:10 AM [facility] REPOSITORY Order Comment: Serial Specimen #1, #2 or #3? 1 TYPE CODE TESTS RESULT OUT OF RANGE REFERENCE UNITS LAB L501.4900 200 mg/dL Normal CHOL 152 Result Comment: <200 mg/dL Desirable 200-240 mg/dL Borderline >240 mg/dL High Risk LAB L501.5000 mg/dL Normal TRIG 103 Result Comment: The drugs N-Acetylcysteine and Metamizole may falsely depress this assay. Serum Triglycerides Reference Interval Normal <150 mg/dL Borderline high 150 - 199 mg/dL High 200 - 499 mg/dL Very High > or = 500 mg/dL LAB L501.6400 mg/dL Normal HDL 59 Result Comment: The drugs N-Acetylcysteine and Metamizole may falsely depress this assay. Reference Range HDL <40 mg/dL Low HDL Cholesterol HDL >or= 60 mg/dL High HDL Cholesterol LAB L501.6500 0-130 mg/dL Normal LDL 72 LAB L501.6600 5-40 mg/dL Normal VLDL 21 Performed By: #### L500.4050, L500.4100, L504.2610 #### [facility] [address] [facility] [place], [address] LDH Collected: 02/28/2018 Status: F Source: [place] 10:10 AM [facility] REPOSITORY Order Comment: Serial Specimen #1, #2 or #3? 1 TYPE CODE TESTS RESULT OUT OF RANGE REFERENCE UNITS LAB L504.2610 84-246 U/L Normal LDH 164 Performed By: #### L500.4050, L500.4100, L504.2610 #### [facility] [address] [facility] [place], [address] PROTEIN ELECTROPH, S Collected: 02/28/2018 Status: F Source: [place] 10:10 AM [facility] REPOSITORY TYPE CODE TESTS RESULT OUT OF REFERENCE UNITS RANGE LAB L3100.350 6.0-8.5 g/dL 0 PROTEIN,TOTAL Normal 7.6 LAB L3100.360 2.9-4.4 g/dL 0 ALBUMIN Normal 3.8 LAB L3100.370 0.0-0.4 g/dL 0 ALPHA-1 GLOBUL Normal 0.3 LAB L3100.380 0.4-1.0 g/dL 0 ALPHA-2 GLOBUL Normal 1.0 LAB L3100.390 0.7-1.3 g/dL 0 BETA GLOBULIN Normal 1.0 LAB L3100.400 0.4-1.8 g/dL 0 GAMMA GLOBULIN Normal 1.5 LAB L3100.411 Not Observed g/dL 0 M-SPIKE High 0.8 LAB L3100.420 2.2-3.9 g/dL 0 GLOBULIN, TOTAL Normal 3.8 LAB L3100.430 0.7-1.7 0 A/G RATIO Normal 1.0 LAB L3100.432 . 0 INTERPRETATION Normal Comment Result Comment: Protein electrophoresis scan will follow via computer, mail, or watchguard delivery. LAB L3100.4340 . Normal NOTE: Comment Result Comment: The SPE pattern demonstrates a single peak (M-spike) in the gamma region which may represent monoclonal protein. This peak may also be caused by circulating immune complexes, cryoglobulins, C-reactive protein, fibrinogen or hemolysis. If clinically indicated, the presence of a monoclonal gammopathy may be confirmed by immuno-fixation, as well as an evaluation of the urine for the presence of Bence-Valle protein. Performed at: [facility] [address] [id number] Auto Crane Driver: Galileo Cowart PhD, Phone: [phone] Performed By: #### L3100.0420 #### [facility] (refer to report for specific site) refer to report for address and phone number PROTEIN ELECTRO.UR-RANDOM Collected: Status: F Source: [place] 02/28/2018 10:10 AM [facility] REPOSITORY TYPE CODE TESTS RESULT OUT OF RANGE REFERENCE UNITS LAB L3600.4100 Not Estab. mg/dL Normal < 4.0 PROTEIN,UR Result Comment: Verified by repeat analysis LAB L3600.4200 . % Normal ALBUMIN,UR 28.5 LAB L3600.4300 . % Normal RPFCA-2-QNVG,U 13.5 LAB L3600.4400 . % Normal IUCDB-4-GKTI,U 21.3 LAB L3600.4500 . % Normal BETA GLOB,U 17.6 LAB L3600.4600 . % Normal GAMMA GLOB,U 19.0 LAB L3600.4720 Normal M-SPIKE,U Result Comment: Not Observed LAB L3600.4800 . Normal NOTE Comment Result Comment: Protein electrophoresis scan will follow via computer, mail, or watchguard delivery. Performed at: [facility] [id number] [employer] Driver: Galileo Cowart PhD, Phone: [phone] Performed By: #### L3600.4000 #### [facility] (refer to report for specific site) refer to report for address and phone number [email or web address] 4 OR MORE Observed: 01/06/2018 Status: F Source: [place] VIEWS 3:55 PM [facility] REPOSITORY [facility] [address] [place] [address] Knee 4 or More Views MR#: [id number] Acct: [id number] Name: AURY BANUELOS Rep #: [id number] : 1950 F 67 From: Gomez Freed MD PCP: Ana Winslow DO Status: REG CLI Study: Knee 4 or More Views Date of Exam: 01/06/18 Exam# [id number] Ordering Dr: Ana Winslow DO STUDY: X-RAY - LEFT KNEE REASON FOR EXAM: Female, 67 years old. Left knee pain without reported injury TECHNIQUE: 4 view(s) of the knee. COMPARISON: None. FINDINGS: Normal visualized distal femur. Normal visualized proximal tibia and fibula. Normal proximal tibiofibular articulation. Normal medial femorotibial compartment. Normal lateral femorotibial compartment. 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 There is a soft tissue prominence in the suprapatellar region suggesting a small volume joint effusion. The soft tissue structures are unremarkable. RAD/Knee 4 or More Views IMPRESSION: Patellofemoral joint arthrosis. Very small joint effusion. Electronically Signed: Gomez Freed MD at 8:48 EDT , Service support , CC: Ana Winslow DO [facility] Picker: Signed RE-EVALUATION - PT (1) Observed: 11/01/2017 Status: F Source: [place] 1:24 PM [facility]PITAL REPOSITORY [facility] [place] [address] Fax REEVALUATION / MEDICARE RECERTIFICATION PHYSICAL THERAPY MR#: [id number] Acct: [id number] Name: AURY BANUELOS Rep #: [id number] : 1950 67 From: Rocael Reid DPT Referring Dr.: Ana Winslow DO Status: REG RCR Insurance: MEDICARE PART A B AARP Ana Winslow, , It has been my pleasure to treat AURY BANUELOS over the last 3 visits for low back pain, chronic pain, and radiculopathy of lumbosacral region. Please see the progress note below for an update on the physical therapy plan of care! Subjective: Pt. reports my symptoms are about the same overall. She reports being HEP compliant throughout the last 2 weeks. Pt. reports constant pain in bilateral HS and lumbar spine. She is also getting pain in anterior knees. Pt. reports 10% better overall. Objective/Function: Pt. has been given exercises to work on neutral spine core strengthening, HS stretching, and SKTC to relieve symptoms. Pt. desires to trial these exercises on her own now. Pt. is independent with HEP and has reduced symptoms with flexion based exercises, but symptoms resume with standing positioning. She would benefit from further core strengthening to stablize her lumbar spine and reduce stress applied to lumbar spine with all functional mobility. Plan Plan: Pt. to trial SKCT and neutral spine core strengthening on her own. She continues to have distal symptoms with all walking/standing. Pt. to follow up with physician at this point in time and determine best course of action. Goals Goal 1:: Pt. to be I with HEP. Goal Time Frame: 4-6 Weeks Goal Progress: Goal Met Goal 2:: Pt. to have increased lumbar ROm by 25% in all directions without increase in symptoms. Goal Time Frame: 4-6 Weeks Goal Progress: Progressing Goal 3:: Pt. to have increased BLE and core strength by 1/2 grade to reduce stress applied to lumbar spine with all functional mobility. Goal Time Frame: 4-6 Weeks Goal Progress: Progressing Goal 4:: Pt. to ambulate unlimited distances with 0-2/10 pain in lumbar spine and BLEs. Goal Time Frame: 4-6 Weeks Goal Progress: Not Progressing Goal 5:: Pt. to sleep throughout the night without increase in symptoms allowing for increased quality of life. Goal Time Frame: 4-6 Weeks Anticipated Interventions Patient/Client Instruction: Educate patient on: Condition, Plan of Care, Risk Factors, Benefits of Fitness Program For the Purpose of:: To improve decision making, To improve self management, To prevent re-injury, To improve ability to perform tasks related to life management, To improve tolerance to ADL's Therapeutic Exercise to Include: Strength training, Power training, Endurance training, Postural training, Flexibilty training, Passive ROM, Active ROM, Dynamic Lumbar Stabilization, Raafel Exercises For the Purpose of:: To decrease pain, To increase ROM, To improve nutrient delivery to tissue, To increase oxygenation perfusion, To improve muscle performance and motor function, To improve ability to perform ADL's, To increase tolerance to activity/condition/position, To improve performance and independence with ADL's, To decrease level of supervision to perform tasks, To decrease soft tissue restriction, To increase flexibility/ROM Manual Therapy Techniques to Include: Mobilization, Functional dry needling For the Purpose of:: To decrease pain, To decrease swelling/inflammation, To increase ROM, To improve nutrient delivery to tissue, To increase oxygenation perfusion, To improve muscle performance and motor function IF ES: Yes Cryotherapy (ice pack, ice massage): Yes Thermo therapy (hot pack): Yes Ultrasound (thermal/non thermal): Yes For the Purpose of:: To decrease pain, To decrease swelling/inflammation, To increase ROM, To improve nutrient delivery to tissue, To increase oxygenation perfusion, To improve muscle performance and motor function Please do not hesitate to contact me at [phone] by phone or if you have questions or concerns regarding this new plan of care! Sincerely, Rocael Reid <Electronically signed by Rocael Reid DPT> 11/01/17 1324 CC: Ana Winslow DO CLS Signed For Medicare only, by signing this I certify the plan of care. Physicians Signature Date 6 MINUTE WALK TEST Observed: 10/28/2017 Status: F Source: [place] 1:21 PM [facility] REPOSITORY [facility] [address] [place] [address] MR#: [id number] Acct: [id number] Name: AURY BANUELOS Rep #: [id number] : 1950 67 From: Tyron Steward DO Referring Dr: Tyron Steward D.O. Date: Ordering Dr: Sex: F C Location: PSN PSN 6 Minute Walk Test - 6 Minute Walk Test 6 Minute Walk Test: 6 Minute Walk Test PSN:6-Minute Walk Test Start: 10/28/17 11:35 Freq: Status: Active Protocol: RESP.6MINW Document 10/28/17 11:35 SMB (Rec: 10/28/17 11:39 SMB [id number]) 6 Minute Walk Test Date Performed 10/28/17 Time Performed 10:52 Height 5 ft 3 in Weight: 230 lb Weight in Pounds 230.[address]: Tyron Steward Assistive device used: None Pre-test Oxygen Delivery Method Room Air Pulse Ox (%) 94 Pulse Rate (60-100 beats/min) 80 1st minute Oxygen Delivery Method Room Air Pulse Ox (%) 87 Pulse Rate (60-100 beats/min) 107 H 2nd minute Oxygen Flow Rate (L/min) (L/min) 2 Oxygen Delivery Method Nasal Cannula Pulse Ox (%) 92 Pulse Rate (60-100 beats/min) 106 H 3rd minute Oxygen Flow Rate (L/min) (L/min) 2 Oxygen Delivery Method Nasal Cannula Pulse Ox (%) 90 Pulse Rate (60-100 beats/min) 109 H 4th minute Oxygen Flow Rate (L/min) (L/min) 2 Oxygen Delivery Method Nasal Cannula Pulse Ox (%) 91 Pulse Rate (60-100 beats/min) 102 H 5th minute Oxygen Flow Rate (L/min) (L/min) 2 Oxygen Delivery Method Nasal Cannula Pulse Ox (%) 91 Pulse Rate (60-100 beats/min) 108 H 6th minute Oxygen Flow Rate (L/min) (L/min) 2 Oxygen Delivery Method Nasal Cannula Pulse Ox (%) 92 Pulse Rate (60-100 beats/min) 108 H Post-test Oxygen Flow Rate (L/min) (L/min) 2 Oxygen Delivery Method Nasal Cannula Pulse Ox (%) 96 Pulse Rate (60-100 beats/min) 84 Dyspnea Froilan Scale (0-10) 0.5 Exertion Froilan Scale (6-20) 11 Full Laps Walked 12 Partial Lap, Number of Tiles Walked 4 Total Distance Walked (ft) 712 - Interpretation Interpretation: The patient ambulated 712 feet over the course of 6 minutes beginning on room air without assistive devices or breaks. Pretesting oxygen saturation was noted to be 94% on room air. With ambulation, the amador oxygen saturation was 87% a minute #1 of testing. 2 L of supplemental oxygen was applied and the patient was able to complete the remainder of the test, while maintaining oxygen saturations at or above 88%. The patient did develop exertional tachycardia. There was evidence of significant exertional oxygen desaturation, consistent with a pulmonary limitation to exercise tolerance. - Recommendations Recommendations: 2 L/min of supplemental oxygen should be utilized with exertion. 10/28/17 132 <Electronically signed by Tyron Steward DO> Date Tyron Steward DO CC: Date Dictated: 10/28/17 132 Date Transcribed: 10/28/171319 Cone Picker: Tyron Steward DO Signed PULMONARY VISIT REPORT Observed: 10/20/2017 Status: F Source: [place] 1:59 PM [facility] Pulmonary Medicine [address] [place] [address] OFFICE VISIT Date of Service: 10/20/17 MR#: [id number] Acct: [id number] Name: AURY BANUELOS Rep #: [id number] : 1950 Provider: Tyron Setward D.O. Age/Sex: 67/F [place] [facility] [place] Status: Signed Assessment AND Plan 1. Chronic obstructive pulmonary disease, unspecified COPD type J44.9 Plan Although the patient's most recent PFTs demonstrate the presence an irreversible moderately severe large airways obstructive ventilatory defect, the patient's respiratory complaints are minimal. She is currently only utilizing an albuterol rescue inhaler on an as-needed basis involuntarily discontinued the use of her maintenance inhaler medications. Given that her reliance on her short acting beta agonist is quite infrequent, we will plan to continue this therapy without change. If her reliance increases, will need to discuss with her once again about the initiation of a maintenance inhaler regimen. Orders Orders: 2. VANESA (obstructive sleep apnea) G47.33 BiPAP 13/9 cmH2O Plan The patient was recently fitted with a new hybrid mask and reports that she has been utilizing her BiPAP over the last 2 weeks. Prior to this, the patient readily admits to noncompliance with the use of nocturnal Pap therapy. Her compliance report clearly confirms this. Ongoing compliance with the use of nocturnal Pap therapy was strongly emphasized to the patient. Her compliance report will need to be reviewed at her follow-up office visit. 3. Class 3 severe obesity due to excess calories with serious comorbidity and body mass index (BMI) of 40.0 to 44.9 in adult E66.01 Plan Weight loss through dietary modification and a graded exercise regimen is strongly encouraged. 4. Tobacco dependence in remission F17.201 Plan Ongoing tobacco cessation is strongly encouraged. 5. Chronic hypoxemic respiratory failure J96.11 Plan The patient currently has a 3 L/min supplemental oxygen requirement with exertion. She is inquiring as to whether she would be a candidate for a POC device. We will plan to call [facility] [place] request. I also recommended that the patient undergo a repeat 6 minute walk test prior to her follow-up office visit with us in 3 months. Plan Detail Follow Up 3 Months (CSM) HPI HPI Comments Details: The patient is a 67-year-old female who presents to the clinic today for a routine scheduled follow-up office visit. If you recall, the patient has a smoking history of 25 pack years, having quit completely in November 2011. She has previously completed pulmonary rehabilitation. 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 Pulmonary function testing completed in December 2015 revealed evidence of a moderate obstructive ventilatory defect with no significant bronchodilator response and a normal diffusing capacity. Repeat pulmonary function testing was completed in August 2017 and revealed evidence of an irreversible moderately severe large airways obstructive ventilatory defect with associated air trapping and reduction in diffusing capacity. 6 minute walk test completed in August 2017 revealed the need for 3 L/min of supplemental oxygen with exertion. Surface echocardiogram from August 2017 revealed evidence of stage I diastolic dysfunction with an ejection fraction of 55%. Pulmonary artery systolic pressure was estimated to be 33 mmHg. The patient has known obstructive sleep apnea based off of a diagnostic polysomnogram completed in August 2016. The patient is currently prescribed nocturnal bilevel therapy with a pressure setting of 13/9 cm of water with humidification. Today, patient reports little to no overall significant change in her breathing quality. She has remained intermittently compliant with use of supplemental oxygen. She has not been evaluated in the emergency department or urgent care clinic for breathing related issues since her last office visit. She is no longer utilizing any maintenance inhalers and only relies on her Ventolin rescue inhaler on average 3 times per months. She denies the presence of a cough, chest tightness or wheezing. The patient's nocturnal compliance report was personally reviewed and demonstrated an overall compliance of 13% over the last 30 days. The patient reports that she was recently fitted with a hybrid mask by [facility] has resumed use of her BiPAP for the last 2 weeks. Prior to this, she readily admits to noncompliance with its use. Her weight has been stable. She denies fevers, chills or night sweats. Intake Vital Signs10/20/17 Height 5 ft 3 in 10/20/17 Weight: 238 lb 10/20/17 Body Mass Index (BMI) 42.1 Intake Visit Reasons: 1 M FU Chief Complaint: shortness of breath on exertion Accompanied by: Self Allergies lisinopril Allergy (Severe, Verified 10/20/17 13:07) Unknown Medications Biotin 2,500 mcg PO DAILY 06/09/16 [History Confirmed 10/20/17] Ergocalciferol [Vitamin D] 50,000 unit PO MO 06/09/16 [History Confirmed 10/20/17] Hydrocodone Bitart/Apap 5-325 [[place] 5MG-325MG] 1 tab PO Q6H PRN PRN 06/09/16 [History Confirmed 10/20/17] Meloxicam [Mobic] 15 mg PO DAILY 06/09/16 [History Confirmed 10/20/17] Multivit-Minerals/Folic Acid [One Daily Womens 50 Plus Tab] 0.4 mg PO DAILY 06/09/16 [History Confirmed 10/20/17] Turmeric/Turmeric Root Extract [Turmeric] 500 mg PO DAILY 06/09/16 [History Confirmed 10/20/17] Vitamin B Complex/Folic Acid [Super B Maxi Complex Caplet] 0.4 mg PO DAILY 06/09/16 [History Confirmed 10/20/17] Docusate Sodium [Colace] 100 mg PO BID PRN PRN #60 cap 06/19/16 [Rx Confirmed 10/20/17] Oxycodone HCl/Acetaminophen [Percocet 5/325] 1 - 2 tab PO Q4H PRN PRN #30 tab 06/19/16 [Rx Confirmed 10/20/17] hydrochlorothiazide 12.5 mg tablet 12.5 mg PO QDAY 04/16/17 [History Confirmed 10/20/17] losartan 100 mg tablet 100 mg PO QDAY 04/16/17 [History Confirmed 10/20/17] albuterol sulfate HFA 90 mcg/actuation aerosol inhaler 2 puff INHALATION Q4H PRN 08/16/17 [History Confirmed 10/20/17] umeclidinium 62.5 mcg-vilanterol 25 mcg/actuation powdr for inhalation 1 inh INHALATION Q24H #60 ea 08/16/17 [Rx Confirmed 10/20/17] tiotropium 2.5 mcg-olodaterol 2.5 mcg/actuation mist for inhalation 2 puff INHALATION Q24H #4 g 09/08/17 [Rx Confirmed 10/20/17] PFS Medical History Asthma (Chronic) Sciatica (Acute) Monoclonal gammopathy of unknown significance (Acute) HTN (hypertension) (Chronic) Vitamin D deficiency (Acute) Benign neoplasm of anal canal (Acute) Calcaneal spur (Acute) Depression (Chronic) Joint pain of leg (Acute) Skin lesion (Acute) Ichthyosis congenita (Chronic) Osteoarthritis (Chronic) Carpal tunnel syndrome (Chronic) Mild DJD (Chronic) COPD (chronic obstructive pulmonary disease) (Chronic) VANESA (obstructive sleep apnea) (Chronic) Obesity (Chronic) Tobacco dependence in remission (Chronic) Surgical History History of hysterectomy (Resolved) History of colonoscopy (Resolved) History of appendectomy (Resolved) S/P laparoscopic assisted vaginal hysterectomy (LAVH) (Acute) Family History Mother Asthma Colon cancer Aunt Colon cancer Father Cancer Social History Smoking Status: Former smoker how long ago did patient quit smokin, 1pk/day second hand exposure: Yes alcohol intake: current alcohol intake frequency: 0-2 drinks per day Alcohol type: hard liquor substance use type: does not use Review of Systems Const CONSTITUTIONAL: Negative anorexia, body ache, chills, daytime sleepiness, fever(s), night sweats, oral thrush, stops breathing during sleep, weight loss, sleeping in chair, fatigue, weight loss, weight gain, frequent colds, seasonal allergies, other, headache(s) or orthopnea EETM Ear Nose Throat Mouth: Positive hearing normal; negative hard of hearing, hoarseness, dry mouth in morning, change in vision, itchy eyes, eye pain, swallowing Difficulty, ear pain, nose bleed, headache(s), mouth pain, nasal congestion, nasal discharge, post nasal drip, sinus pain, sinus pressure, sore throat or other Cardio Cardiovascular: Negative chest pain, chest pain at rest, chest pain with activity, irregular heart rhythm, edema, shortness of breath when lying down, palpitations, murmur or other Resp Respiratory: Positive as per HPI and shortness of breath shortness of breath: Positive with activity; negative pain with cough, wheezing, chest congestion, cough, chest tightness, pain on inspiration, inhalers, increase use of rescue inhalers, snoring, apnea or other Gastro Gastrointestional: Negative bloody stools, change in appetite, difficulty swallowing, reflux, hematemesis, melena stool, loose stool, constipation or other Genitourinary: Negative blood in urine, nocturia, pain with urination or other Musc Musculoskeletal: Negative body pain, back pain, neck pain or other Skin/Breast Skin/Breast: Negative dry skin, itching, rash, unusual bruising, breast lump or other Neuro Neurological: Negative restless legs, confusion, weakness or other Psych Psychocological: Negative abnormal sleep pattern, anxiety, thoughts of hurting self/others, hopelessness or other Lymph Lymphatic: Negative easy bleeding, easy bruising, swollen lymph nodes or other Exam Const Constitutional: Positive conversant, cooperative, in no acute respiratory distress, well developed, well nourished, good hygiene, obese and wearing supplemental oxygen Head Head: Positive normocephalic and atraumatic; negative cyanosis of lips/distal nose Eyes Eye: Positive clear conjunctiva; negative nystagmus or scleral abnormality Ears Ear: Positive hearing normal; negative hard of hearing Nose Nose: Positive external nose normal and septum normal; negative epistaxis Mouth Mouth: Positive oral mucosae normal and posterior oropharynx is adequate; negative no lesions or post nasal drip Mallampati Score: III: Mallampati Score Neck Neck: Positive normal visual inspection and trachea midline; negative lymphadenopathy Chest Wall Chest: Positive symmetric chest movement Normal AP diameter. Resp lung sounds: Positive diminished diminished: Positive bialteral and normal expiratory time; negative wheezes, rhonchi or rales Cardio Cardiac: Positive regular rate, regular rhythm, S1 normal and S2 normal; negative rub, gallop or murmur GI GI: Positive normal bowel sounds and obese Soft without distention Genitourinary: Positive deferred Musc Musculoskeletal: Positive steady gait Skin Pulmonary Skin Exam: Positive intact; negative lesion, ulcers, dermal atrophy or rash Pulses Pulse: Yes Pedal pulses present: Extremities Extremities: No clubbing, No cyanosis, No edema Neuro Neurologic: Yes conversant, Yes no focal neuro deficits, Yes cooperative Lymph Lymphatic: No lymphadenopathy Psych Appearance: Positive grossly normal Mental Status: Positive mental status grossly normal Mood: Positive congruent mood Affect: Positive normal affect Coding Level of Care Code Off vis,est,level 3 Diagnoses Chronic obstructive pulmonary disease, unspecified COPD type J44.9 COPD type: unspecified COPD VANESA (obstructive sleep apnea) G47.33 Class 3 severe obesity due to excess calories with serious comorbidity and body mass index (BMI) of 40.0 to 44.9 in adult E66.01 Body mass index: BMI 40.0-44.9 Obesity classification: adult class 3 (BMI >= 40) Obesity type: due to excess calories Serious obesity comorbidity presence: with serious comorbidity Tobacco dependence in remission F17.201 Chronic hypoxemic respiratory failure J96.11 10/20/17 1359 <Electronically signed by Tyron Steward DO> Date Tyron Stewrad DO Cosigner Signature: Date (if applicable) CC: Ana Winslow DO INITAL EVALUATION (1) Observed: 10/18/2017 Status: F Source: [place] - [place] 12:56 PM [facility] [place] REPOSIT[facility] Physical [facility] [address] [place], [place] [id number] Fax REHABILITATION SERVICES INITIAL EVALUATION MR#: [id number] Acct: [id number] Name: AURY BANUELOS Rep #: [id number] : 1950 67 From: Rocael Reid DPT Referring Dr.: Ana Winslow DO Status: REG RCR Insurance: MEDICARE PART A B AARP Patient's Visit Information AURY BANUELOS is a 67 year old F referred to Physical Therapy by Ana Winslow DO with a diagnosis of low back pain, chronic pain, and radiculopathy of lumbosacral region. Date of Evaluation: 10/13/17 Physical Therapist: Rocael Reid - Visit Plan Frequency: 2x /Week Duration: 4 Weeks Plan: Start with TA activiation, progress lumbar extension progression as tolerated. HS and IT band stretching. Progress as pt. tolerates. May use modalities to reduce symptoms. - Subjective Subjective: Pt. is here today for her initial evaluation with diagnosis of low back pain, chronic pain, and radiculopathy of lumbosacral region. Pt. reports having pain for many years, but has been prgressively getting worse recently. Pt. reports previously that her physician wanted her to get an MRI, but due to be very claustrophobic she is unwilling to use an MRI. Pt. reports being curious about physician using the my eye tool to possibly view arthroscopically. I talked to patient that the physician who uses here is only currently using this device in the knee. Pt. reports her pain radiates from her back down both legs. Pt. denies N/T. Pt. denies any changes in B/B. No BLE weakness reported. Pt. is hopeful to reduce symptoms in order to get back to all recreational activities without issues or limitations. - Pain lumbar spine Pain Intensity (Out of 10): 4 Pain Intensity Range: 2, 6 B posterior thighs Pain Intensity (Out of 10): 3 Pain Intensity Range: 1, 6 - Objective POSTURE: Pt. has decreased lumbar lordosis, rounded shoulders. Pt. has normal DARLENE in stance, anterior pelvic tilt. PALPATION: Pt. has increased tenderness throughout lumbar spine and into gluteal region. Pt. also has pain at bilateral greater trochanters. NEUROLOGICAL: Pt. has normal senstation to light and sharp touch. pt. has 2+ bilateral DTR of achilles and patellar tendons. Pt. is able to rise on heels and toes without issues. ROM: Lumbar spine: flexion mod loss increase NW, ext mod loss mild decrease NB, SB R min loss increase NW, SB L nil loss NE, rotation R min loss increase NW, rotation L nil loss NE. Pt. has normal hip ROM, except tight HS and tight IT bands bilaterally. MMT: RLE- ankle 5/5 throughout; knee- ext 4+/5, flexion 4/5; hip- flexion 4/5 increase nW, abd 4/5 NE, ext 4/5. LLE- ankle 5/5 throughout; knee- ext 4+/5, flexion 4/5; hip- flexion 4/5 increase nW, abd 4/5 NE, ext 4/5. Core strength- poor. GAIT: Pt. has increased bilateral hip sway laterally during stance phase. Pt. has slight flexed posture. Pt. has no antalgic pattern, but reports increased pain with every step. STAIRS: Pt. is able to negotiate with step to pattern with 1 HR without LOB, increased pain with ascending, no pain with descending. - Special Tests L/S Slump test left side: Positive L/S Slump test right side: Positive L/S Left Straight Leg Raise: Positive L/S Right Straight Leg Raise: Positive Lumbar Standing: Flexion - Mechanical Response: No effect Lumbar Standing: Flexion - Symptoms During Testing: Increases Lumbar Standing: Flexion - Symptoms After Testing: No worse Lumbar Standing: Extension - Mechanical Response: No effect Lumbar Standing: Extension - Symptoms During Testing: Decreases Lumbar Standing: Extension - Symptoms After Testing: No better Lumbar Standing: Right Side Glides - Mechanical Response: No effect Lumbar Standing: Right Side [place] - Symptoms During Testing: No effect Lumbar Standing: Right Side [place] - Symptoms After Testing: No effect Lumbar Standing: Left Side [place] - Mechanical Response: No effect Lumbar Standing: Left Side [place] - Symptoms During Testing: No effect Lumbar Standing: Left Side [place] - Symptoms After Testing: No effect Lumbar Lying: Flexion - Mechanical Response: No effect Lumbar Lying: Flexion - Symptoms During Testing: No effect Lumbar Lying: Flexion - Symptoms After Testing: No effect Lumbar Lying: Extension - Mechanical Response: No effect Lumbar Lying: Extension - Symptoms During Testing: Decreases Lumbar Lying: Extension - Symptoms After Testing: No better Lumbar Static: Slouched Sit - Mechanical Response: No effect Lumbar Static: Slouched Sit - Symptoms During Testing: Increases Lumbar Static: Slouched Sit - Symptoms After Testing: No worse Lumbar Static: Sitting Erect - Mechanical Response: No effect Lumbar Static: Sitting Erect - Symptoms During Testing: No effect Lumbar Static: Sitting Erect - Symptoms After Testing: No effect Lumbar Static:Lying Prone in Extension - Mechanical Response: No effect Lumbar Static: Lying Prone in Extension - Sx During Testing: Decreases Lumbar Static: Lying Prone in Extension - Sx After Testing: No better - Goals Goal 1:: Pt. to be I with HEP. Goal Time Frame: 4-6 Weeks Goal 2:: Pt. to have increased lumbar ROm by 25% in all directions without increase in symptoms. Goal Time Frame: 4-6 Weeks Goal 3:: Pt. to have increased BLE and core strength by 1/2 grade to reduce stress applied to lumbar spine with all functional mobility. Goal Time Frame: 4-6 Weeks Goal 4:: Pt. to ambulate unlimited distances with 0-2/10 pain in lumbar spine and BLEs. Goal Time Frame: 4-6 Weeks Goal 5:: Pt. to sleep throughout the night without increase in symptoms allowing for increased quality of life. Goal Time Frame: 4-6 Weeks - Rehabilitation Potential Physical Therapy Diagnosis: Pt. has signs and symptoms of radiating pain from lumbosacral region, down boths legs. Pt. appears to have a positive response with extension motions this date. Pt. also has tight HS and tigh IT band coupled with BLE/core weakness. Pt. would benefit from PT to increase lumbar ROM, core/hip strength in order to reduce stress applied to lumbar spine with all functional mobility. Rehabilitation Potential: Fair - Anticipated Interventions Patient/Client Instruction: Educate patient on: Condition, Plan of Care, Risk Factors, Benefits of Fitness Program For the Purpose of:: To improve decision making, To improve self management, To prevent re-injury, To improve ability to perform tasks related to life management, To improve tolerance to ADL's Therapeutic Exercise to Include: Strength training, Power training, Endurance training, Postural training, Flexibilty training, Passive ROM, Active ROM, Dynamic Lumbar Stabilization, Rafael Exercises For the Purpose of:: To decrease pain, To increase ROM, To improve nutrient delivery to tissue, To increase oxygenation perfusion, To improve muscle performance and motor function, To improve ability to perform ADL's, To increase tolerance to activity/condition/position, To improve performance and independence with ADL's, To decrease level of supervision to perform tasks, To decrease soft tissue restriction, To increase flexibility/ROM Manual Therapy Techniques to Include: Mobilization, Functional dry needling For the Purpose of:: To decrease pain, To decrease swelling/inflammation, To increase ROM, To improve nutrient delivery to tissue, To increase oxygenation perfusion, To improve muscle performance and motor function IF ES: Yes Cryotherapy (ice pack, ice massage): Yes Thermo therapy (hot pack): Yes Ultrasound (thermal/non thermal): Yes For the Purpose of:: To decrease pain, To decrease swelling/inflammation, To increase ROM, To improve nutrient delivery to tissue, To increase oxygenation perfusion, To improve muscle performance and motor function Thank you for the opportunity to evaluate your patient. For Medicare and Medicare HMO plans, please review the plan of care and approve it. It will need to be FAXED BACK to us at [phone] for Medicare purposes. Please let me know if there are questions or concerns regarding this plan of care. Physician Signature: Date: <Electronically signed by Rocael Reid DPT> 10/18/17 1256 CC: Ana Winslow DO SANDER Signed For Medicare only, by signing this I certify the plan of care. Physicians Signature Date ECHOCARDIOGRAM COMPLETE Observed: 09/23/2017 Status: F Source: [place] 6:52 PM [facility] REPOS[facility] Cardiovascular Services [place] [id number] Echo Complete 09/23/17 1004 MR#: [id number] Acct: [id number] Name: AURY BANUELOS Rep #: [id number] : 1950 67 From: Tay Adkins MD Attending Dr: Vonnie Patel DIGITAL COMPUTER OPERATOR Status: REG CLI Ordering Dr: Vonnie Patel DIGITAL COMPUTER OPERATOR-C Date: 09/23/17 Location: [facility] Sex: F C Admitted: Version 2 Reason For Study: DYSPNEA Procedure This was a 2D Doppler, Color Flow transthoracic echocardiogram. Exam performed in department. Left Ventricle Normal LV size. Left ventricular systolic function is normal. The estimated ejection fraction is 55 %. Transmitral and pulmonary venous doppler flow suggestive of impaired relaxation of left ventricle. Transmitral diastolic flow velocities suggest mild (stage 1) diastolic dysfunction (reversed pattern). No regional wall motion abnormalities noted. Right Ventricle Normal RV size. Normal systolic function. Atria Normal left atrium. Normal right atrium. Mitral Valve Normal mitral valve. Mild (1+) eccentric mitral valve insufficiency. Tricuspid Valve Normal tricuspid valve. Mild (1+) eccentric tricuspid valve insufficiency. Pulmonary artery systolic pressure is 33 mmHg. Aortic Valve Trisinus/trileaflet aortic valve. Pulmonic Valve Normal pulmonic valve. Great Vessels Normal aortic root. The pulmonary artery is normal size. Normal inferior vena cava. Pericardium/Pleural No pericardial effusion. MMode/2D Measurements AND Calculations LVIDd: 5.0 cm IVSd: 0.91 cm Ao root diam: 3.2 cm LVIDs: 3.1 cm LVPWd: 0.93 cm RVDd: 3.7 cm FS: 39.0 % LAV(MOD-bp): 51.1 ml EDV(MOD-sp4): 109.4 ml EDV(MOD-sp2): 135.0 ml LAV(MOD-bp) Indexed: 24.9 ml/m2 ESV(MOD-sp4): 38.2 ml EF(MOD-sp2): 64.1 % LAV(MOD-sp2): 43.5 ml EF(MOD-sp4): 65.1 % LAV(MOD-sp4): 55.1 ml SV(MOD-sp4): 71.2 ml SV(MOD-sp2): 86.5 ml LA A4 area: 18.6 cm2 RA A4 area: 17.1 cm2 Time Measurements MV dec time: 0.23 sec Doppler Measurements AND Calculations MV E max sergio: 96.4 cm/sec Lat Peak E' Sergio: 7.4 cm/sec Med Peak E' Sergio: 6.4 cm/sec MV A max sergio: 126.4 cm/sec E/E' lat: 13.0 E/E' med: 15.1 MV E/A: 0.76 Ao V2 max: 168.8 cm/sec LV V1 max: 140.0 cm/sec TR max sergio: 266.8 cm/sec Ao max P.4 mmHg LV V1 max P.8 mmHg TR max P.5 mmHg Interpretation Summary Normal LV size. Left ventricular systolic function is normal. The estimated ejection fraction is 55 %. Transmitral and pulmonary venous doppler flow suggestive of impaired relaxation of left ventricle Transmitral diastolic flow velocities suggest mild (stage 1) diastolic dysfunction (reversed pattern). Pulmonary artery systolic pressure is 33 mmHg. Ordering Physician: Vonnie Patel Referring Physician: Vonnie Patel Performed By: Lorena Brian, RDCS, RVT 09/23/171851 Date Tay Adkins MD CC: Vonnie Winslow DO Date Dictated: 09/23/17 1004 Date Transcribed: 09/23/171850 Cone Picker: Signed PULMONARY FUNCTION Observed: 09/23/2017 Status: F Source: [place] REPORT COMP 11:35 AM [facility] REPOSIT[facility] Pulmonary Services/Neurology [address] [place] [address] MR#: [id number] Acct: [id number] Name: AURY BANUELOS Rep #: [id number] : 1950 67 From: Lenin Murillo MD Referring Dr: Vonnie Patel DIGITAL COMPUTER OPERATOR Status: REG CLI Ordering Dr: Date: Location: [facility] Sex: F C COMPLETE PULMONARY FUNCTION TEST INTERPRETATION Brief HPI: Patient is a 67 year old female, currently under the care of Vonnie Patel, who presents to [facility] for complete pulmonary function tests secondary to diagnosis of COPD. Respiratory therapist reports good effort and reproducible results. Interpretation: Forced expiration spirometry shows a moderately-severe large airways obstructive ventilatory defect with an FEV1 of 57% predicted. There is no significant bronchodilator response by ATS criteria. Spirograms are of good quality and plateau slowly, indicating slowly emptying areas of the lungs. The respiratory flow volume loop shows decreased expiratory flow rates at all lung volumes consistent with airway obstruction. Lung volumes by body plethysmography show a normal total lung capacity at 4.8 L, 103% predicted. FRC and RV are elevated out of proportion. Lung volume measurements are consistent with air-trapping. Diffusion capacity by carbon monoxide is decreased at 66% predicted. The airway resistance is elevated. No previous pulmonary function tests were available for review. Impression: Irreversible moderately severe large airways obstructive ventilatory defect with a symmetric reduction in diffusing capacity resulting in air trapping and consistent with the diagnosis of COPD. 09/23/17 1135 <Electronically signed by Lenin Murillo MD> Date Lenin Murillo MD CC: Lenin Murillo MD; Vonnie Winslow DO Date Dictated: 09/23/17 1133 Date Transcribed: 09/23/171132 Cone Picker: [email or web address] Signed 6 MINUTE WALK TEST Observed: 09/21/2017 Status: F Source: [place] 5:28 PM [facility] RE[facility] Pulmonary Services/Neurology [address] [place] [address] MR#: [id number] Acct: [id number] Name: AURY BANUELOS Rep #: [id number] : 1950 67 From: Lenin Murillo MD Referring Dr: Vonnie Patel NP Date: Ordering Dr: Sex: F C Location: PSN PSN 6 Minute Walk Test - 6 Minute Walk Test 6 Minute Walk Test: 6 Minute Walk Test PSN:6-Minute Walk Test Start: 09/21/17 10:40 Freq: Status: Active Protocol: RESP.6MINW Document 09/21/17 09:30 HG (Rec: 09/21/17 10:43 HG [id number]) 6 Minute Walk Test Date Performed 09/21/17 Time Performed 09:30 Height 5 ft 3 in Weight: 106.141 kg Weight in Pounds 234.[address]: Vonnie Patel Assistive device used: None Pre-test Oxygen Delivery Method Room Air Pulse Ox (%) 91 Pulse Rate (60-100 beats/min) 80 Dyspnea Froilan Scale (0-10) 1 Exertion Froilan Scale (6-20) 6 1st minute Oxygen Delivery Method Room Air Pulse Ox (%) 85 Pulse Rate (60-100 beats/min) 98 2nd minute Oxygen Flow Rate (L/min) (L/min) 2 Oxygen Delivery Method Nasal Cannula Pulse Ox (%) 89 Pulse Rate (60-100 beats/min) 95 3rd minute Oxygen Flow Rate (L/min) (L/min) 2 Oxygen Delivery Method Nasal Cannula Pulse Ox (%) 87 Pulse Rate (60-100 beats/min) 109 H 4th minute Oxygen Flow Rate (L/min) (L/min) 3 Oxygen Delivery Method Nasal Cannula Pulse Ox (%) 90 Pulse Rate (60-100 beats/min) 108 H 5th minute Oxygen Flow Rate (L/min) (L/min) 3 Oxygen Delivery Method Nasal Cannula Pulse Ox (%) 89 Pulse Rate (60-100 beats/min) 110 H 6th minute Oxygen Flow Rate (L/min) (L/min) 3 Oxygen Delivery Method Nasal Cannula Pulse Ox (%) 90 Pulse Rate (60-100 beats/min) 111 H Post-test Oxygen Flow Rate (L/min) (L/min) 3 Oxygen Delivery Method Nasal Cannula Pulse Ox (%) 97 Pulse Rate (60-100 beats/min) 83 Dyspnea Froilan Scale (0-10) 1 Exertion Froilan Scale (6-20) 6 Full Laps Walked 17 Partial Lap, Number of Tiles Walked 0 Total Distance Walked (ft) 1003 - Interpretation Interpretation: The patient was noted to be 91% on room air. However, patient desaturated to 85% within the first minute. The patient required a total of 3 L nasal cannula to maintain appropriate saturations throughout testing. In total, patient ambulated 1003 feet over the course of 6 minutes with no assistive devices. Patient did require one break secondary to dyspnea. These findings are consistent with a respiratory limitation exercise tolerance. - Recommendations Recommendations: The patient requires no supplemental oxygen at rest, but should be using 3 L nasal cannula oxygen with any exertion. 09/21/17 2646 <Electronically signed by Lenin Murillo MD> Date Lenin Murillo MD CC: Date Dictated: 09/21/171726 Date Transcribed: 09/21/171726 Cone Picker: Lenin Murillo Signed DOWNTIME REPORT Observed: 09/16/2017 Status: F Source: [place] 1:24 PM [facility] RE[facility] Medical Records Department [address] [place] [address] Downtime Report MR#: [id number] Acct: [id number] Name: AURY BANUELOS Rep #: [id number] : 1950 67 From: Alfredo Escobar PCP: Ana Winslow DO Status: REG CLI This patient was seen during an EMR downtime August 30, 2017 - September 06, 2017. This patient may have a combination of paper and electronic documentation or all paper documentation. All documentation is viewable within the e-chart portion of [employer] for each patient visit. VITAMIN D,25 HYDROXY Collected: 08/30/2017 Status: F Source: [place] 3:00 PM [facility] REPOSITORY Order Comment: RESULT(S) PREVIOUSLY REPORTED ON MANUAL REQUISITION DURING DOWNTIME. TYPE CODE TESTS RESULT OUT OF RANGE REFERENCE UNITS LAB L506.1000 29.95-100.01 ng/mL Normal Vitamin D 56.6 25-OH Result Comment: Vitamin D 25(OH) Status Range Deficiency <20 ng/mL (50nmol/L) Insuffciency 20 - 30 ng/mL (50 - 75 nmol/L) Sufficiency 30 - 100 ng/mL (75 - 250 nmol/L) Toxicity >100 ng/mL (>250 nmol/L) Performed By: #### L506.1000 #### [facility] [address] [place], [address] PROTEIN ELECTROPH, S Collected: 08/30/2017 Status: F Source: [place] 3:00 PM [facility] RE[facility] TYPE CODE TESTS RESULT OUT OF RANGE REFERENCE UNITS LAB L3100.3500 Normal PROTEIN,TOTA L Result Comment: TEST RESULT LIMITS Protein Electro.,S Protein, Total 7.8 g/dL 6.0 - 8.5 Albumin 3.6 g/dL 2.9 - 4.4 Kxzie-2-Txvmkgbc 0.3 g/dL 0.0 - 0.4 Vmuia-1-Fyldjjmo 1.0 g/dL 0.4 - 1.0 Beta Globulin 1.1 g/dL 0.7 - 1.3 Gamma Globulin 1.7 g/dL 0.4 - 1.8 M-Jimbo 0.9 High g/dL Not Observed Globulin, Total 4.2 High g/dL 2.2 - 3.9 A/G Ratio 0.9 0.7 - 1.7 Please note: Protein electrophoresis scan will follow via computer, mail, or watchguard delivery. Performed By: #### L3100.3450, L3410.1400, L4600.0100 #### [facility] (refer to report for specific site) refer to report for address and phone number HLA B27 Collected: 08/30/2017 Status: F Source: [place] 3:00 PM [facility]POS[facility] TYPE CODE TESTS RESULT OUT OF RANGE REFERENCE UNITS LAB L3410.1500 Normal HLA B27 Result Comment: TEST RESULT LIMITS HLA B 27 Disease Association HLA-B27 Negative HLA-B*27 Negative B27 allele interpretation for all loci based on IMGT/HLA database version 3.27 This test was developed and its performance characteristics determined by [facility]. It has not been cleared or approved by the Food and Drug Administration. [facility] CLIA ID Number [id number] This test was performed using PCR (Polymerase Chain Reaction)/SSOP (Sequence Specific Oligonucleotide Probes) technique. SBT (Sequence Based Typing) and/or SSP (Sequence Specific Primers) may be used as supplemental methods when necessary. Please contact [facility] Customer Service at if you have any questions. [facility]FOR[facility] AT [facility]. ORIGINAL REPORT ON FILE IN LAB CONTAINS ADDITIONAL TEST SITE INFORMATION. Director of [facility] Laboratory Dr Andres Low, PhD Performed By: #### L3100.3450, L3410.1400, L4600.0100 #### [facility] (refer to report for specific site) refer to report for address and phone number CCP IGG ANTIBODIES Collected: 08/30/2017 Status: F Source: [place] 3:00 PM [facility] TYPE CODE TESTS RESULT OUT OF RANGE REFERENCE UNITS LAB L4600.0100 Normal ANTI-CCP [id number] Result Comment: TEST RESULT LIMITS CCP Antibodies IgG/IgA 7 units 0 - 19 Negative <20 Weak positive 20 - 39 Moderate positive 40 - 59 Strong positive >59 [facility]. ORIGINAL REPORT ON FILE IN LAB CONTAINS ADDITIONAL TEST SITE INFORMATION. Performed By: #### L3100.3450, L3410.1400, L4600.0100 #### [facility] (refer to report for specific site) refer to report for address and phone number ANTINUCLEAR ANTIBODIES Collected: 08/30/2017 Status: F Source: [place] DIRECT 3:00 PM [facility] TYPE CODE TESTS RESULT OUT OF RANGE REFERENCE UNITS LAB L3100.5475 Normal MARY-DIRECT Result Comment: TEST RESULT LIMITS Antinuclear Antibodies Direct MARY Direct Negative Negative [facility]FOR[facility] AT [facility]. ORIGINAL REPORT ON FILE IN LAB CONTAINS ADDITIONAL TEST SITE INFORMATION. Performed By: #### L3100.5475 #### [facility] (refer to report for specific site) refer to report for address and phone number PROTEIN [email or web address].UR-[email or web address] Collected: Status: F Source: [place] 08/30/2017 3:00 PM [facility] REPOS[facility] TYPE CODE TESTS RESULT OUT OF RANGE REFERENCE UNITS LAB L3600.4100 Normal PROTEIN,UR Result Comment: TEST RESULT LIMITS Protein Electro, Random Urine Protein,Total,Urine 13.9 mg/dL Not Estab. Albumin, U 29.7 % Crwdh-6-Ncpwtmaw, U 4.3 % Vlgsf-0-Gnoovwpa, U 16.5 % Beta Globulin, U 30.9 % Gamma Globulin, U 18.6 % M-Jimbo, % Not Observed % Not Observed Please note: Protein electrophoresis scan will follow via computer, mail, or watchguard delivery. TESTING PERFORMED AT [facility]. ORIGINAL REPORT ON FILE IN LAB CONTAINS ADDITIONAL TEST SITE INFORMATION. Performed By: #### L3600.4000 #### [facility] (refer to report for specific site) refer to report for address and phone number CBC W/DIFF, AUTOMATED Collected: 08/30/2017 Status: F Source: [place] 3:00 PM [facility] RE[facility] Order Comment: RESULT(S) PREVIOUSLY REPORTED ON MANUAL REQUISITION DURING DOWNTIME. TYPE CODE TESTS RESULT OUT OF RANGE REFERENCE UNITS LAB L100.1000 4.4-11.0 K/mm3 Normal WBC 10.4 LAB L100.1200 4.2-5.4 M/mm3 Low RBC 3.99 LAB L100.1300 12.0-15.0 g/dl Normal HGB 12.0 LAB L100.1400 37-47 % Normal HCT 38.8 LAB L100.1500 81-99 fL Normal MCV 97.2 LAB L100.1600 27.0-32.0 pg Normal MCH 30.1 LAB L100.1700 32-36 g/gl Low MCHC 30.9 LAB L100.1810 11.6-14.6 % High RDW CV 14.8 LAB L100.1820 35.1-43.9 fl High RDW SD 50.7 LAB L100.1900 150-450 K/mm3 Normal PLT 405 LAB L100.2000 6.2-12.0 fl Normal MPV 8.9 LAB L100.2100 47-70 % Normal NEUT% 63.5 LAB L100.2200 19-41 % Normal LY% 23.8 LAB L100.2300 0-10 % Normal MONO% 7.5 LAB L100.2400 0-5 % Normal EO% 3.9 LAB L100.2500 0-1 % Normal BASO% 1.0 LAB L100.2550 0.0-0.9 % Normal IM GRAN % 0.300 Result Comment: IG% - Immature Granulocytes (promyelocytes, myelocytes and metamyelocytes) > 1% indicates that a LEFT SHIFT is Present. LAB L100.2620 2.0-7.7 X10 3/uL Normal Absolute Neut 6.6 LAB L100.2720 0.83-4.51 X10 3/ul Normal Absolute Lymph 2.47 Performed By: #### L100.0100, L101.9900 #### [facility] [address] [facility] [place], [place], [id number] ERYTHROCYTE SED RATE Collected: 08/30/2017 Status: F Source: [place] 3:00 [facility] REPOSITORY Order Comment: RESULT(S) PREVIOUSLY REPORTED ON MANUAL REQUISITION DURING DOWNTIME. TYPE CODE TESTS RESULT OUT OF RANGE REFERENCE UNITS LAB L102.0000 0-30 mm/hr Test Normal SED not performed RATE Result Comment: MISSED DURING DOWNTIME Performed By: #### L100.0100, L101.9900 #### [facility] [address] [place], [place], [id number] COMPREHENSIVE METABOLIC Collected: 08/30/2017 Status: F Source: [facility] 3:00 PM [facility] REPOSITORY Order Comment: Serial Specimen #1, #2 or #3? 1 TYPE CODE TESTS RESULT OUT OF RANGE REFERENCE UNITS LAB L501.0100 74-106 mg/dL Normal GLU 81 Result Comment: Please note revised GLUCOSE reference range effective 2017. LAB L501.1000 7-18 mg/dL Normal BUN 13 LAB L501.1100 0.55-1.02 mg/dL Normal CREAT,SERUM 0.69 Result Comment: The validity of the calculated GFR AND GFRAA in patients over 70 years has not been determined. Clinical correlation is essential. LAB L501.1110 >60 mL/min 91 Normal EST GFR LAB L501.1115 >60 mL/min 110 Normal EST GFR - AA LAB L501.1300 10-20 RATIO 18.8 Normal BUN/CRE LAB L501.1800 3.2-5.0 g/dL 4.1 Normal ALB LAB L501.2200 8.5-10.1 mg/dL 9.8 Normal CA LAB L501.4100 15-37 U/L 18 Normal AST LAB L501.4305 45-117 U/L 53 Normal ALK P LAB L501.4405 13-56 U/L 26 Normal ALT LAB L501.4600 0.20-1.00 mg/dL Test Normal T not performed BILI LAB L501.5300 136-145 mmol/L 140 Normal NA LAB L501.5600 3.5-5.1 mmol/L 3.7 Normal K LAB L501.5900 98-107 mmol/L 103 Normal CL LAB L501.6100 21.0-32.0 mmol/L 30.0 Normal CO2 LAB L501.6200 5-15 7 Normal GAP Performed By: #### L500.4050, L500.4100, L501.6710, L504.2610, L505.7010 #### [facility] [address] [facility] [place], [address] LIPID PROFILE Collected: 08/30/2017 Status: F Source: [place] 3:00 PM [facility] RE[facility] Order Comment: Serial Specimen #1, #2 or #3? 1 TYPE CODE TESTS RESULT OUT OF RANGE REFERENCE UNITS LAB L501.4900 200 mg/dL Normal CHOL 149 Result Comment: <200 mg/dL Desirable 200-240 mg/dL Borderline >240 mg/dL High Risk LAB L501.5000 mg/dL Normal TRIG 118 Result Comment: The drugs N-Acetylcysteine and Metamizole may falsely depress this assay. Serum Triglycerides Reference Interval Normal <150 mg/dL Borderline high 150 - 199 mg/dL High 200 - 499 mg/dL Very High > or = 500 mg/dL LAB L501.6400 mg/dL Normal HDL 48 Result Comment: The drugs N-Acetylcysteine and Metamizole may falsely depress this assay. Reference Range HDL <40 mg/dL Low HDL Cholesterol HDL >or= 60 mg/dL High HDL Cholesterol LAB L501.6500 0-130 mg/dL Normal LDL 77 LAB L501.6600 5-40 mg/dL Normal VLDL 24 Performed By: #### L500.4050, L500.4100, L501.6710, L504.2610, L505.7010 #### [facility] [address] [place], [place], [id number] CRP Collected: 08/30/2017 Status: F Source: [place] 3:00 [facility] REPOSITORY Order Comment: Serial Specimen #1, #2 or #3? 1 TYPE CODE TESTS RESULT OUT OF RANGE REFERENCE UNITS LAB L501.6710 0.0-3.0 mg/L High 11.80 C-REACTIVE PROT Result Comment: C-Reactive Protein (CRP) provides useful information for the diagnosis, therapy and monitoring of inflammatory processes and associated diseases. For the evaluation of Relative Risk for Cardiovascular Disease, a High Sensitivity CRP (HSCRP) should be ordered. Performed By: #### L500.4050, L500.4100, L501.6710, L504.2610, L505.7010 #### [facility] [address] [place], [place], [address] LDH Collected: 08/30/2017 Status: F Source: [place] 3:00 PM [facility] REPOS[facility] Order Comment: Serial Specimen #1, #2 or #3? 1 TYPE CODE TESTS RESULT OUT OF RANGE REFERENCE UNITS LAB L504.2610 84-246 U/L Normal LDH 199 Performed By: #### L500.4050, L500.4100, L501.6710, L504.2610, L505.7010 #### [facility] [address] [place], [address] RHEUMATOID FACTOR Collected: 08/30/2017 Status: F Source: [place] 3:00 PM [facility] Order Comment: Serial Specimen #1, #2 or #3? 1 TYPE CODE TESTS RESULT OUT OF RANGE REFERENCE UNITS LAB L505.7010 <15 IU/mL Normal RHEUMATOID FAC < 10.0 Performed By: #### L500.4050, L500.4100, L501.6710, L504.2610, L505.7010 #### [facility] [address] [place], [address] PULMONARY VISIT REPORT Observed: 08/17/2017 Status: F Source: [place] 7:55 AM [facility] REPOSITORY [facility] [address] [place] [address] OFFICE VISIT Date of Service: 08/16/17 MR#: [id number] Acct: [id number] Name: AURY BANUELOS Rep #: [id number] : 1950 Provider: Vonnie Patel Age/Sex: 67/F [place] [facility] Status: Signed Assessment AND Plan 1. SUTTON (dyspnea on exertion) R06.09 Plan Deteriorated. Patient reports that her shortness of breath on exertion has worsened. PFTs were last done in 2016. Plan to repeat PFTs and also evaluate for possible exertional hypoxia with a simple pulmonary stress test. If hypoxia is identified supplemental oxygen will be ordered. Also plan to evaluate for possible pulmonary hypertension contributing to the shortness of breath with an echocardiogram. The patient believes had has been approximately 10 years since she had an echocardiogram. Systolic murmur heard today, patient reports that this is a new finding. Plan to have her follow-up with Dr. Steward in 6 weeks after obtaining all of this testing. At which time, he can determine a long-term plan. The patient is agreeable to this plan. She conveys understanding. Orders Orders: 2. Mild intermittent asthma without complication J45.20 Status Chronic Plan Stable. Rare use of rescue inhaler. He does not appear to be having seasonal allergies triggering her asthma. No additional testing in regards to her asthma at this time. Follow-up with Dr. Steward in 6 months. 3. Chronic obstructive pulmonary disease, unspecified COPD type J44.9 Status Chronic Plan Shortness of breath on exertion may have several different etiologies. Possibly, air trapping and hyperinflation could be attributing to his shortness of breath. Evaluate with a pulmonary stress test and a pulmonary function test, with a subsequent follow-up with Dr. Steward in 6 weeks to discuss test results. In the meantime, and placing her on Anoro. First dose was provided in the office today and she was personally instructed on how to use the inhaler. She has been encouraged to contact the office if she develops any side effects from the new medication, or to get an update on how she is responding. Otherwise, follow-up with Dr. Steward in 6 weeks Orders Orders: 4. VANESA (obstructive sleep apnea) G47.33 Status Chronic Plan Stable. She is using and benefiting from BiPAP therapy. No indication for titration study at this time. Follow-up with Dr. Steward in 6 weeks. We will be obtaining an echocardiogram to determine if the patient is experiencing on her hypertension which could be contributing to her shortness of breath. Discussed pulmonary hypertension and the relationship to obstructive sleep apnea with patient, she conveys understanding. 5. Class 3 severe obesity due to excess calories with serious comorbidity and body mass index (BMI) of 40.0 to 44.9 in adult E66.01; Z68.41 Status Chronic Plan Continue to encourage weight loss. Plan Detail Other Medications New: Follow Up 6 Weeks (DMB) HPI 6 M FU: Chief Complaint: shortness of breath on exertion HPI Comments Details: This patient presents the office today to follow- up on her obstructive sleep apnea, COPD and asthma. She is ambulatory and currently on room air. Today she reports that her shortness of breath has worsened over the past few months. She reports that she is fatigued easily and is exerted more easily. She denies any shortness of breath at rest or during conversation. She has occasionally used her ProAir rescue inhaler and finds it to give her some relief. She denies any cough, sputum production or hemoptysis. She denies any chest pain, wheezing, chest tightness or palpitations. She has not experienced any fever, chills or body aches. She reports compliance with her BiPAP nightly. She states that she is only able to sleep about 5-1/2 hours before she awakens. She is currently having 2 episodes of nocturia nightly she does report feeling rested in the morning. She is not currently taking any naps. She has been working with her DME to evaluate alternative masks, she has had some difficulties with her mask staying in place. He recently had more difficulty with right hip pain. She reports this hip pain shoots down her right leg. She has an upcoming appointment scheduled with her primary care physician to evaluate her hip. She also reports that an MRI is pending. She is concerned because she experiences claustrophobia. She is not currently on any maintenance medications. She reports rare use of her rescue inhaler. She has not had bronchitis or sinusitis over the past 6 months. Has not required antibiotics or prednisone for any breathing problems. She has not been to the ED urgent care for any respiratory illnesses. She has not added any qlvs-lpv-nncstvx medications to treat her symptoms, she reports that she is somewhat fearful and hesitant to begin the medication (fben-cer-obxvnsz or prescribed). Intake Vital Signs08/16/17 Height 5 ft 3.5 in 08/16/17 Weight: 237 lb Intake Visit Reasons: 6 M FU [employer] Required: No DME Vendor: Pasha Accompanied by: Self Is patient in pain?: Yes Allergies lisinopril Allergy (Severe, Verified 08/16/17 07:31) Unknown Medications Biotin 2,500 mcg PO DAILY 06/09/16 [History Confirmed 08/16/17] Ergocalciferol [Vitamin D] 50,000 unit PO MO 06/09/16 [History Confirmed 08/16/17] Hydrocodone Bitart/Apap 5-325 [[place] 5MG-325MG] 1 tab PO Q6H PRN PRN 06/09/16 [History Confirmed 08/16/17] Meloxicam [Mobic] 15 mg PO DAILY 06/09/16 [History Confirmed 08/16/17] Multivit-Minerals/Folic Acid [One Daily Womens 50 Plus Tab] 0.4 mg PO DAILY 06/09/16 [History Confirmed 08/16/17] Turmeric/Turmeric Root Extract [Turmeric] 500 mg PO DAILY 06/09/16 [History Confirmed 08/16/17] Vitamin B Complex/Folic Acid [Super B Maxi Complex Caplet] 0.4 mg PO DAILY 06/09/16 [History Confirmed 08/16/17] Docusate Sodium [Colace] 100 mg PO BID PRN PRN #60 cap 06/19/16 [Rx Confirmed 08/16/17] Oxycodone HCl/Acetaminophen [Percocet 5/325] 1 - 2 tab PO Q4H PRN PRN #30 tab 06/19/16 [Rx Confirmed 08/16/17] hydrochlorothiazide 12.5 mg tablet 12.5 mg PO QDAY 04/16/17 [History Confirmed 08/16/17] losartan 100 mg tablet 100 mg PO QDAY 04/16/17 [History Confirmed 08/16/17] albuterol sulfate HFA 90 mcg/actuation aerosol inhaler 2 puff INHALATION Q4H PRN 08/16/17 [History Confirmed 08/16/17] umeclidinium 62.5 mcg-vilanterol 25 mcg/actuation powdr for inhalation 1 inh INHALATION Q24H #60 ea 08/16/17 [Rx Confirmed 08/16/17] PFSH Medical History Asthma (Chronic) Sciatica (Acute) Monoclonal gammopathy of unknown significance (Acute) HTN (hypertension) (Chronic) Vitamin D deficiency (Acute) Benign neoplasm of anal canal (Acute) Calcaneal spur (Acute) Depression (Chronic) Joint pain of leg (Acute) Skin lesion (Acute) Ichthyosis congenita (Chronic) Osteoarthritis (Chronic) Carpal tunnel syndrome (Chronic) Mild DJD (Chronic) COPD (chronic obstructive pulmonary disease) (Chronic) VANESA (obstructive sleep apnea) (Chronic) Obesity (Chronic) Tobacco dependence in remission (Chronic) Surgical History History of hysterectomy (Resolved) History of colonoscopy (Resolved) History of appendectomy (Resolved) S/P laparoscopic assisted vaginal hysterectomy (LAVH) (Acute) Family History Mother Asthma Colon cancer Aunt Colon cancer Father Cancer Social History Smoking Status: Former smoker how long ago did patient quit smokin, 1pk/day second hand exposure: Yes alcohol intake: current alcohol intake frequency: 0-2 drinks per day Alcohol type: hard liquor substance use type: does not use Review of Systems Const CONSTITUTIONAL: Positive fatigue; negative anorexia, body ache, chills, daytime sleepiness, fever(s), night sweats, oral thrush, stops breathing during sleep, weight loss, sleeping in chair, weight loss, weight gain, frequent colds, seasonal allergies, other, headache(s) or orthopnea EETM Ear Nose Throat Mouth: Positive hearing normal; negative hard of hearing, hoarseness, dry mouth in morning, change in vision, itchy eyes, eye pain, swallowing Difficulty, ear pain, nose bleed, headache(s), mouth pain, nasal congestion, nasal discharge, post nasal drip, sinus pain, sinus pressure, sore throat or other Cardio Cardiovascular: Positive murmur; negative chest pain, chest pain at rest, chest pain with activity, irregular heart rhythm, edema, shortness of breath when lying down, palpitations or other Resp Respiratory: Positive as per HPI, shortness of breath shortness of breath: Positive with activity and worsening and inhalers; negative pain with cough, wheezing, chest congestion, cough, chest tightness, pain on inspiration, increase use of rescue inhalers, snoring, apnea or other Gastro Gastrointestional: Negative bloody stools, change in appetite, difficulty swallowing, reflux, hematemesis, melena stool, loose stool, constipation or other Genitourinary: Positive nocturia; negative blood in urine, pain with urination or other Musc Musculoskeletal: Positive body pain; negative back pain, neck pain or other Skin/Breast Skin/Breast: Negative dry skin, itching, rash, unusual bruising, breast lump or other Neuro Neurological: Negative restless legs, confusion, weakness or other Psych Psychocological: Negative abnormal sleep pattern, anxiety, thoughts of hurting self/others, hopelessness or other Lymph Lymphatic: Negative easy bleeding, easy bruising, swollen lymph nodes or other Exam Const Constitutional: Positive conversant, cooperative, in no acute respiratory distress, healthy appearing, well developed, well nourished, good hygiene and obese Head Head: Positive normocephalic and atraumatic; negative cyanosis of lips/distal nose Eyes Eye: Positive clear conjunctiva and nystagmus; negative scleral abnormality Ears Ear: Positive hearing normal and external ears normal; negative hard of hearing Nose Nose: Positive external nose normal and no nasal discharge; negative epistaxis Mouth Mouth: Positive oral mucosae normal, no lesions, good dentition and posterior oropharynx is adequate; negative post nasal drip, malodorous breath or oral thrush present Mallampati Score: II: Mallampati Score Neck Neck: Positive normal visual inspection, full ROM, trachea midline, thick neck and female neck greater than 37 cm (15 in); negative lymphadenopathy, JVD or tender Chest Wall Chest: Positive normal inspection of the chest and symmetric chest movement; negative increased A/P diameter Resp lung sounds: Positive diminished, normal expiratory time, normal respiratory effort and clear to auscultation; negative wheezes, rhonchi, rales, dullness to percussion or wheeze present on forced exhalation Cardio Cardiac: Positive murmur murmur: Positive systolic, RUSB and LUSB, regular rate, S1 normal, regular rhythm and S2 normal GI GI: Positive normal to inspection, normal bowel sounds and obese; negative distended Genitourinary: Positive deferred Musc Musculoskeletal: Positive steady gait and ROM normal; negative kyphosis or scoliosis Skin Pulmonary Skin Exam: Positive intact; negative rash, lesion, ulcers, erythema, scaly or dermal atrophy Pulses Pulse: Yes pulses normal x4 extremities Extremities Extremities: Yes capillary refill normal, No clubbing, No cyanosis, No edema, No stasis dermatitis Neuro Neurologic: Yes conversant, Yes no focal neuro deficits, Yes cooperative, Yes normal cognition, Yes normal coordination, Yes normal concentration, Yes understands questions, No tremor Lymph Lymphatic: No lymphadenopathy, No tenderness, No cervical adenopathy, No axillary adenopathy Psych Appearance: Positive grossly normal, eye contact and well kempt Mental Status: Positive mental status grossly normal Mood: Positive congruent mood Affect: Positive normal affect Office Procedures Inhaler Training Inhaler Training Procedure performed by: Vonnie Patel Inhaler Training: Yes personally trained on inhaler use, sample provided, first dose given in the office, expresses understanding and continue to monitor Coding Level of Care Code Off vis,est,level 4 Diagnoses SUTTON (dyspnea on exertion) R06.09 Mild intermittent asthma without complication J45.20 Asthma complication type: uncomplicated Asthma persistence: intermittent Asthma severity: mild Chronic obstructive pulmonary disease, unspecified COPD type J44.9 COPD type: unspecified COPD VANESA (obstructive sleep apnea) G47.33 Class 3 severe obesity due to excess calories with serious comorbidity and body mass index (BMI) of 40.0 to 44.9 in adult E66.01; Z68.41 Obesity type: due to excess calories Obesity classification: adult class 3 (BMI >= 40) Serious obesity comorbidity presence: with serious comorbidity Body mass index: BMI 40.0-44.9 08/17/17 0755 <Electronically signed by Vonnie THOMPSONC> Date Vonnie Patel DIGITAL COMPUTER OPERATOR-C Cosigner Signature: Date (if applicable) CC: Ana Winslow DO PELVIS 1 OR 2 VIEWS Observed: 05/27/2017 Status: F Source: [place] 3:30 PM [facility] REPOS[facility] [address] [place] [address] 86[address] Pelvis 1 or 2 Views MR#: [id number] Acct: [id number] Name: AURY BANUELOS Rep #: [id number] : 1950 F 67 From: Madelyn Gilliam MD PCP: Ana Winslow DO Status: REG CLI Study: Pelvis 1 or 2 Views Date of Exam: 05/27/17 Exam# [id number] Ordering Dr: Ana Winslow DO STUDY: X-RAY - PELVIS REASON FOR EXAM: Female, 67 years old. Low back pain TECHNIQUE: One view of the pelvis was obtained. COMPARISON: None. FINDINGS: There is a non-specific bowel gas pattern. The soft tissues are unremarkable. There are mild degenerative changes in the lower lumbar spine. The visualized iliac wings, sacroiliac joints and sacrum are unremarkable. No abnormalities are seen in the visualized superior and inferior pubic rami. Normal appearing pubic symphysis. The visualized ischial tuberosities are unremarkable. The proximal right femur shows no significant abnormalities. The right acetabulum shows no significant abnormalities. The right hip joint is normal in appearance. The proximal left femur shows no significant abnormalities. The left acetabulum shows no significant abnormalities. The left hip joint is normal in appearance. RAD/Pelvis 1 or 2 Views IMPRESSION: No significant abnormalities are seen radiographically in the pelvis. Electronically Signed: Madelyn Gilliam MD at 16:35 EST Tel Direct: [phone], Service support , CC: Ana Winslow DO Cone Picker: Signed L/S SPINE MIN 4 Observed: 05/27/2017 Status: F Source: [place] VIEWS 3:30 PM [facility] REPOS[facility] [address] [place] [address] L/S Spine Min 4 Views MR#: [id number] Acct: [id number] Name: AURY BANUELOS Rep #: [id number] : 1950 F 67 From: Madelyn Gilliam MD PCP: Ana Winslow DO Status: REG CLI Study: L/S Spine Min 4 Views Date of Exam: 05/27/17 Exam# [id number] Ordering Dr: Ana Winslow DO STUDY: X-RAY - LUMBAR SPINE REASON FOR EXAM: Female, 67 years old. TECHNIQUE: Five view(s) of the lumbar spine were obtained. COMPARISON: None FINDINGS: Normal lumbar lordosis. There is mild S-shaped scoliosis. There is normal alignment of the vertebrae. Osteophytes are scattered throughout the lumbar spine and visualized lower thoracic spine. Vertebral body heights are maintained. There is moderate disc space narrowing at T12-L1 and L1-2. There is mild disc space narrowing at L2-3 and L3-4. There is atherosclerotic calcification of the abdominal aorta without a demonstrated aneurysm. RAD/L/S Spine Min 4 Views IMPRESSION: There are degenerative changes scattered in the lumbar spine, most pronounced at T12-L1 and L1-2. Electronically Signed: Madelyn Gilliam MD at 16:36 EST Tel Direct: [phone], Service support , CC: Ana Winslow DO Cone Picker: Signed ALLERGIES ALLERGIES DATE TYPE / CODE NAME / CODE REACTION SEVERITY SOURCE 10/20/2017 Drug lisinopril/[id number] Unknown [facility] Allergy/416 0658(RXNORM) [facility] [id number]([facility] ED CT) Repository 06/25/2016 DRUG LISINOPRIL COUGH [facility] INGREDI/[address] [place] [address] 020605([facility] ED CT) ENCOUNTERS ENCOUNTERS ADMIT/DISCHARGE ACCOUNT ADMITTING ENCOUNTER LOCATION SOURCE NUMBER CLASS 03/14/2018/03/14/20 [id number] Ambulatory [address] Repository 03/14/2018/03/14/20 [id number] Ambulatory [address] Repository 02/28/2018 [id number] Ambulatory [facility] ing:BFHLAB Repository 01/06/2018 [id number] [facility] ing:RAD Repository 11/01/2017/11/02/19 [id number] Ambulatory [address] ing:PT Repository 10/28/2017 [id number] Ambulatory [facility] ing:PSN Repository 10/28/2017 [id number] Ambulatory [facility]MS[facility] Repository 10/20/2017/10/21/19 [id number] Ambulatory BMSBuilding:B [place] [address] [place] Repository 09/23/2017 [id number] Ambulatory BMSBuilding:W [facility] Repository 09/23/2017 [id number] Ambulatory BMSBuilding:W [facility] Repository 09/23/2017 [id number] Ambulatory [facility] ing:CVS Repository 09/22/2017 [id number] Ambulatory [facility] ing:PSN Repository 09/21/2017 [id number] Ambulatory [facility] ing:PSN Repository 09/21/2017 [id number] Ambulatory BMSBuilding:W [facility] Repository 08/30/2017 [id number] Ambulatory [facility] ing:BFHLAB Repository 08/16/2017/08/17/19 [id number] Ambulatory BMSBuilding:B [place] [address] [place].Pending [facility] to [facility] Repository 06/14/2017 [id number] Ambulatory [facility] ing:LAB.FUTUR Repository E 05/27/2017 [id number] Ambulatory [facility] ing:RAD Repository 05/03/2017 [id number] Ambulatory BMSBuilding:B [place].Pending [facility] to [facility] Repository 05/03/2017 [id number] Ambulatory [facility] ing:LAB.FUTUR Repository E 04/16/2017 [id number] [facility] Repository PAYERS PAYERS ENCOUNTER GUARANTOR PAYER SUBSCRIBER SOURCE 02/28/2018 AURY L Primary AURY L [place] [id number] [place] Insurance:MEDICARE LANDRYDOB: [place] PART A [facility] [id number] Hospital [address]Jzo: (419) Number: Repository [phone] [id number] Date:2018-02-28 02/28/2018 Secondary AURY L [place] Insurance:AARPPolicy LANDRYDOB: [facility] Number: [id number] Hospital [id number] Repository Date:0844-85-36[address], [place] [address]IE: 02/28/2018 Tertiary NOT GIVENUNK [place] Insurance:SELF PAY [facility] Number: Effective Repository Date:2018-02-28 01/06/2018 AURY L Primary AURY L [place] [id number] CAMP Insurance:MEDICARE LANDRYDOB: [place] PART [place] [facility] [id number] Hospital [address]Pya: (419) Number: Repository [phone] () [id number] Date:2018-01-05 01/06/2018 Secondary AURY L [place] Insurance:AARPPolicy LANDRYDOB: Community Number: [id number] Hospital [id number] Repository Date:7705-33-90[address], [place] [address]JV: 01/06/2018 Tertiary NOT GIVENUNK [place] Insurance:SELF PAY [facility] Number: Effective Repository Date:2018-01-05 11/01/2017 AURY L Primary AURY L [place] [id number] [address] Insurance:MEDICARE LANDRYDOB: [place] [facility] [id number] Hospital [address]Dsx: (419) Number: Repository [phone] () [id number] Date:2017-02-26 11/01/2017 Secondary AURY L [place] Insurance:AARPPolicy LANDRYDOB: Community Number: [id number] Hospital [id number] Repository Date:3933-90-15[address], [place] [address]GX: 11/01/2017 Tertiary NOT GIVENUNK [place] Insurance:SELF PAY [facility] Number: Effective Repository Date:2017-10-07 10/28/2017 AURY L Primary AURY L [place] [id number] C[place] Insurance:MEDICARE LANDRYDOB: [place] [facility] [id number] Hospital [address]Ivx: ([phone]) Number: Repository [phone] () [id number] Date:2017-10-25 10/28/2017 Secondary AURY L [place] Insurance:AARPPolicy LANDRYDOB: Community Number: [id number] Hospital [id number] Repository Date:0376-69-47DW [address], [place] [address]QU: 10/28/2017 Tertiary NOT GIVENUNK [place] Insurance:SELF PAY [facility] Number: Effective Repository Date:2017-10-25 10/28/2017 AURY L Primary AURY L [place] [id number] [place] Insurance:MEDICARE LANDRYDOB: Community [place] PART [place] [facility] [id number] Hospital [address]Sdj: (419) Number: Repository [phone] () [id number] Date:2017-10-25 10/28/2017 Secondary AURY L [place] Insurance:AARPPolicy LANDRYDOB: Community Number: [id number] Hospital [id number] Repository Date:3477-78-50BI [facility] [address], [place] [address]OX: 10/28/2017 Tertiary NOT GIVENUNK [place] Insurance:SELF PAY [facility] Number: Effective Repository Date:2017-10-28 10/20/2017 AURY L Primary AURY L [place] [id number] C[place] Insurance:MEDICARE LANDRYDOB: [place] [facility] [id number] Hospital [address]Gdy: (419) Number: Repository [phone] () [id number] Date:2017-08-16 10/20/2017 Secondary AURY L [place] Insurance:AARPPolicy LANDRYDOB: Community Number: [id number] Hospital [id number] Repository Date:2870-17-53OL [address], [place] [address]XT: 10/20/2017 Tertiary NOT GIVENUNK [place] Insurance:SELF PAY [facility] Number: Effective Repository Date:2017-10-13 09/23/2017 AURY L Primary AURY L [place] [id number] [place] Insurance:MEDICARE LANDRYDOB: [place] [facility] [id number] Hospital [address]Ueq: ([phone]) Number: Repository [phone] () [id number] Date:2017-08-16 09/23/2017 Secondary AURY L [place] Insurance:AARPPolicy LANDRYDOB: Community Number: [id number] Hospital [id number] Repository Date:1967-20-87KV [address], [place] [address]VT: 09/23/2017 Tertiary NOT GIVENUNK [place] Insurance:SELF PAY [facility] Number: Effective Repository Date:2017-09-23 09/23/2017 AURY L Primary AURY L [place] [id number] C[place] Insurance:MEDICARE LANDRYDOB: [place] [facility] [id number] Hospital [address]Vwy: ([phone]) Number: Repository [phone] () [id number] Date:2017-08-16 09/23/2017 Secondary AURY L [place] Insurance:AARPPolicy LANDRYDOB: Community Number: [id number] Hospital [id number] Repository Date:3578-74-19EV [address], [place] [address]EG: 09/23/2017 Tertiary NOT GIVENUNK [place] Insurance:SELF PAY [facility] Number: Effective Repository Date:2017-09-23 09/23/2017 AURY L Primary AURY L [place] [id number] C[place] Insurance:MEDICARE LANDRYDOB: [place] [facility] [id number] Hospital [address]Xsh: (419) Number: Repository [phone] () [id number] Date:2017-08-17 09/23/2017 Secondary AURY L [place] Insurance:AARPPolicy LANDRYDOB: Community Number: [id number] Hospital [id number] Repository Date:2018-74-56OL [address], [place] [address]ZR: 09/23/2017 Tertiary NOT GIVENUNK [place] Insurance:SELF PAY [facility] Number: Effective Repository Date:2017-08-17 09/22/2017 AURY L Primary AURY L [place] [id number] [place] Insurance:MEDICARE LANDRYDOB: [place] [facility] [id number] Hospital [address]Pht: ([phone]) Number: Repository [phone] () [id number] Date:2017-08-16 09/22/2017 Secondary AURY L [place] Insurance:AARPPolicy LANDRYDOB: Community Number: [id number] Hospital [id number] Repository Date:9628-48-61TF [address], [place] [address]RA: 09/22/2017 Tertiary NOT GIVENUNK [place] Insurance:SELF PAY [facility] Number: Effective Repository Date:2017-08-16 09/21/2017 AURY L Primary AURY L [place] [id number] C[place] Insurance:MEDICARE LANDRYDOB: [place] [facility] [id number] Hospital [address]Kot: (419) Number: Repository [phone] () [id number] Date:2017-08-16 09/21/2017 Secondary AURY L [place] Insurance:AARPPolicy LANDRYDOB: Community Number: [id number] Hospital [id number] Repository Date:3944-65-38WN [address], [place] [address]CZ: 09/21/2017 Tertiary NOT GIVENUNK [place] Insurance:SELF PAY [facility] Number: Effective Repository Date:2017-08-16 09/21/2017 AURY L Primary AURY L [place] [id number] [place] Insurance:MEDICARE LANDRYDOB: [place] [facility] [id number] Hospital 73[address]Qrc: (419) Number: Repository [phone] () [id number] Date:2017-08-16 09/21/2017 Secondary AURY L [place] Insurance:AARPPolicy LANDRYDOB: Community Number: [id number] Hospital [id number] Repository Date:3285-74-17ZT [address], [place] [address]YQ: 09/21/2017 Tertiary NOT GIVENUNK [place] Insurance:SELF PAY [facility] Number: Effective Repository Date:2017-09-21 08/30/2017 AURY L Primary AURY L [place] [id number] [place] Insurance:MEDICARE LANDRYDOB: [place] [facility] [id number] Hospital [address]Rnr: (419) Number: Repository [phone] () [id number] Date:2017-08-30 08/30/2017 Secondary AURY L [place] Insurance:AARPPolicy LANDRYDOB: Community Number: [id number] Hospital [id number] Repository Date:0083-07-77YW [address], [place] [address]NB: 08/30/2017 Tertiary NOT GIVENUNK [place] Insurance:SELF PAY [facility] Number: Effective Repository Date:2017-08-30 08/16/2017 AURY L Primary AURY L [place] [id number] [place] Insurance:MEDICARE LANDRYDOB: [place] [facility] [id number] Hospital 10[address]Bwj: (419) Number: Repository [phone] () [id number] Date:2017-08-09 08/16/2017 Secondary AURY L [place] Insurance:AARPPolicy LANDRYDOB: Community Number: [id number] Hospital [id number] Repository Date:6190-50-04KI [address], [place] [address]AS: 08/16/2017 Tertiary NOT GIVENUNK [place] Insurance:SELF PAY [facility] Number: Effective Repository Date:2017-08-12 06/14/2017 AURY L Primary AURY L [place] [id number] C[place] Insurance:MEDICARE LANDRYDOB: [place] [facility] [id number] Hospital 69[address]Egm: (419) Number: Repository [phone] () [id number] Date:2017-06-14 06/14/2017 Secondary AURY L [place] Insurance:AARPPolicy LANDRYDOB: Community Number: [id number] Hospital [id number] Repository Date:7383-16-07IH [address], [place] [address]RN: 06/14/2017 Tertiary NOT GIVENUNK [place] Insurance:SELF PAY [facility] Number: Effective Repository Date:2017-06-14 05/27/2017 AURY L Primary AURY L [place] [id number] [place] Insurance:MEDICARE LANDRYDOB: [facility] [id number] Hospital 2[address]Dfj: (419) Number: Repository [phone] () [id number] Date:2017-05-27 05/27/2017 Secondary AURY L [place] Insurance:AARPPolicy LANDRYDOB: [facility] Number: [id number] Hospital [id number] Repository Date:0805-77-02[address], [place] [address]II: 05/27/2017 Tertiary NOT GIVENUNK [place] Insurance:SELF PAY [facility] Number: Effective Repository Date:2017-05-27 05/03/2017 AURY L Primary AURY L [place] [id number] [place] Insurance:MEDICAL LANDRYDOB: [facility] [id number] Hospital [address]Xjj: (419) Number: Repository [phone] () [id number] Date:9790-07-17HX [address] [place] [address]LZ: 05/03/2017 Secondary NOT GIVENUNK [place] Insurance:SELF PAY [facility] Number: Effective Repository Date:2017-04-05 05/03/2017 AURY L Primary AURY L [place] [id number] [place] Insurance:MEDICARE LANDRYDOB: [place] [facility] [id number] Hospital [address]Mwm: (419) Number: Repository [phone] () [id number] Date:2017-05-03 05/03/2017 Secondary AURY L [place] Insurance:AARPPolicy LANDRYDOB: [facility] Number: [id number] Hospital [id number] Repository Date:6527-69-63QY [address], [place] [address]YU: 05/03/2017 Tertiary NOT GIVENUNK [place] Insurance:SELF PAY [facility] Number: Effective Repository Date:2017-05-03 04/16/2017 Aury L Primary Aury L [place] [id number] Insurance:MEDICAL LandryDOB: [facility] [id number] Hospital [address]Mlu: (419) Number: Repository [phone] () [id number] Date:3942-59-58WS [address], [place] [address]CA: 04/16/2017 Secondary NOT GIVENUNK [place] Insurance:SELF PAY [facility] Number: Effective Repository Date:2017-04-16
== END ==
PROVIDERS: Family Provider Family Medicine; PCP Family Medicine; Visit Provider Family Medicine
DX: D47.2 Monoclonal gammopathy (principal); M54.5 Low back pain; G89.29 Other chronic pain; E78.5 Hyperlipidemia, unspecified; Z51.81 Encounter for therapeutic drug level monitoring
CPT/HCPCS: 36415; 80053; 80061; 83615; 84165; 84166; 85025

== ENCOUNTER → 2018-05-02 10:40 | Outpatient (CLI) | payer MEDICARE, OTHER, SELFPAY ==
[2018-05-02 13:12] LABS: ALB/GLOB Ratio 0.9 RATIO (0.9-2.4); AST(SGOT) 21 U/L (15-37); Alanine Aminotransfer ALT/SGPT 25 U/L (13-56); Alkaline Phosphatase 61 U/L (45-117); Anion Gap 8 (5-15); BUN 14 mg/dL (7-18); BUN/Creat Ratio 19.8 RATIO (10-20); Calcium,Total 9.6 mg/dL (8.5-10.1); Chloride 103 mmol/L (98-107); Creatinine, Serum 0.71 mg/dL (0.55-1.02); EST Glomerular Filtration Rate 88 mL/min (>60); Est Glom Filt Rate - Afr Amer 106 mL/min (>60); Globulin 4.4 g/dL (2.2-4.2); Glucose 80 mg/dL (74-106); Potassium 3.5 mmol/L (3.5-5.1); Protein, Total 8.4 g/dL (6.4-8.2); Sodium Level 139 mmol/L (136-145)
== END ==
PROVIDERS: Family Provider Family Medicine; PCP Family Medicine; Visit Provider Family Medicine
DX: Z51.81 Encounter for therapeutic drug level monitoring (principal)
CPT/HCPCS: 36415; 80053

== ENCOUNTER → 2018-11-03 16:29 | Outpatient (CLI) | payer MEDICARE, OTHER, SELFPAY ==
--- NOTE | 2018-11-03 16:32 | CT_ITS ---
STUDY: LOW DOSE CT LUNG CANCER SCREENING REASON FOR EXAM: Female, 68 years old. 1 pack per day smoker for 35 years. Screening for lung cancer. RADIATION DOSAGE (If Supplied By Facility): CTDIvol = ( 4.02 ) mGy, DLP = ( 142.95 ) mGycm TECHNIQUE: No contrast was administered. Low dose technique was utilized (average mAS-38 and kVp 120). 1.25 mm axial source images with a slice interval of 1.25-mm were reconstructed in lung windows. Nodule measured using lung windows on PACS and/or independent workstation with automated measurement of minimum and maximum diameter. Nodule measurement reported as average diameter rounded to the nearest whole number. Growth is defined as an increase ins size of greater than 1.5 mm. COMPARISON: None. NODULES: Nodule #: None. Total lung nodules (excluding granulomas): 0. Emphysema: Mild subpleural emphysema along apices. Endobronchial lesion: None. Aorta: Normal caliber. Coronary arteries: Calcific atherosclerosis. Heart: Normal size. Pulmonary artery: Normal caliber. Mediastinal nodes: No adenopathy. Other chest and abdominal findings: None. CT/Low Dose CT Lung Screening IMPRESSION: Category 1. Continue annual screening. No nodules. Mild emphysema lung apices. IMPORTANT NOTES FOR USE: ACR Lung-RADS Version 1.0 Assessment Categories Release Date: July 24, 2013 Category: Coded 0-4 bases on nodule(s) with highest degree of suspicion. Negative screen is defined as categories 1 and 2; a positive screen is defined as categories 3 and 4. Category 3 and 4A nodules that are unchanged on interval CT should be coded as category 2, and individuals returned to screening in 12 months. Category 4X: Category 3 or 4 nodules with additional imaging findings that increase the suspicion of lung cancer, such as spiculation, GGN that doubles in size in 1 year, enlarged lymph notes, etc. Category Modifiers: S (significant finding unrelated to lung cancer) and C (prior history of treated lung cancer) may be added to the 0-4 Lung-RADS Electronically Signed: Duran Macario, at 17:58 EDT Tel , Service support ,
== END ==
PROVIDERS: Family Provider Family Medicine; PCP Family Medicine; Referring Provider Internal Medicine Pulmonary Disease; Visit Provider Internal Medicine Pulmonary Disease
DX: Z87.891 Personal history of nicotine dependence (principal)
CPT/HCPCS: G0297

== ENCOUNTER → 2018-11-22 10:02 | Outpatient (CLI) | payer MEDICARE, OTHER, SELFPAY ==
[2018-11-22 12:03] LABS: Absolute Lymphocyte Count 2.19 X10^3/uL (0.83-4.51); Absolute Neutrophil Count 4.4 X10^3/uL (2.0-7.7); Basophil# 0.07 X10^3/uL; Basophil% 0.9 % (0-1); Eosinophils% 5.2 % (0-5); Hematocrit 38.5 % (37-47); Hemoglobin 12.3 g/dL (12.0-15.0); Lymphocyte # 2.19 X10^3/ul (4.0); Lymphocyte % 28.3 % (19-41); Mean Corp Hgb Conc 31.9 g/dL (32-36); Mean Corpuscular Hgb 29.9 pg (27.0-32.0); Mean Corpuscular Volume 93.4 fL (81-99); Mean Platelet Vol. 8.9 fl (6.2-12.0); Monocyte# 0.63 X10^3/uL; Monocyte% 8.1 % (0-10); NRBC Flagged by Analyzer 0 % (0-5); Neutrophil # 4.42 X10^3/uL (2.7-7.7); Neutrophil % 57.1 % (47-70); Platelet Count 335 K/mm3 (150-450); RBC Distribution Width CV 14.3 % (11.6-14.6); RBC Distribution Width SD 48.9 fl (35.1-43.9); Red Blood Count 4.12 M/mm3 (4.2-5.4); White Blood Count 7.7 K/mm3 (4.4-11.0)
[2018-11-22 12:17] LABS: ALB/GLOB Ratio 0.9 RATIO (0.9-2.4); AST(SGOT) 18 U/L (15-37); Alanine Aminotransfer ALT/SGPT 23 U/L (13-56); Albumin, Serum 3.9 g/dL (3.2-5.0); Alkaline Phosphatase 52 U/L (45-117); Anion Gap 5 (5-15); BUN 17 mg/dL (7-18); BUN/Creat Ratio 20.9 RATIO (10-20); Calcium,Total 9.5 mg/dL (8.5-10.1); Chloride 106 mmol/L (98-107); Cholesterol 163 mg/dL (200); Creatinine, Serum 0.82 mg/dL (0.55-1.02); EST Glomerular Filtration Rate 75 mL/min (>60); Est Glom Filt Rate - Afr Amer 90 mL/min (>60); Globulin 4.3 g/dL (2.2-4.2); Glucose 84 mg/dL (74-106); High Density Lipoprotein 57 mg/dL; LDH 181 U/L (84-246); Potassium 4.4 mmol/L (3.5-5.1); Protein, Total 8.2 g/dL (6.4-8.2); Sodium Level 141 mmol/L (136-145); Triglycerides 155 mg/dL; Very Low Density Lipoprotein 31 mg/dL (5-40)
[2018-11-25 11:07] LABS: PROEL- Albumin 3.8 g/dL (2.9-4.4); PROEL- Alpha-1 Globulin 0.3 g/dL (0.0-0.4); PROEL- Beta Globulin 1.1 g/dL (0.7-1.3); PROEL- Gamma Globulin 1.5 g/dL (0.4-1.8); PROEL- Globulin, Total 3.8 g/dL (2.2-3.9); PROEL- TOTAL PROTEIN 7.6 g/dL (6.0-8.5); PROELU- Alpha-1-Globulin,Ur 5.4 % (.); PROELU- Alpha-2-Globulin,Ur 16.6 % (.); PROELU- Beta Globulin, Ur 27.8 % (.); PROELU- Gamma Globulin, Ur 13.1 % (.); Total Protein, Ur 11.8 mg/dL (Not Estab.)
[2018-11-25 12:45] LABS: Rubeola IgG Ab > 300.0 AU/mL (Immune >16.4); Rubeola IgM Ab < 0.91 ISR (0.00-0.90)
== END ==
PROVIDERS: Family Provider Family Medicine; PCP Family Medicine; Visit Provider Family Medicine
DX: Z01.84 Encounter for antibody response examination (principal); D47.2 Monoclonal gammopathy; I10 Essential (primary) hypertension; M54.5 Low back pain; E78.5 Hyperlipidemia, unspecified
CPT/HCPCS: 36415; 80053; 80061; 83615; 84165; 84166; 85025; 86765

== ENCOUNTER → 2019-01-24 13:45 | Outpatient (CLI) | payer MEDICARE, OTHER, SELFPAY ==
--- NOTE | 2019-01-24 13:47 | CT_ITS ---
STUDY: CTA CHEST REASON FOR EXAM: Female, 68 years old. Enlarged aorta RADIATION DOSAGE (If Supplied By Facility): CTDIvol = ( 12.4 ) mGy, DLP = ( 549.35 ) mGycm TECHNIQUE: The examination was performed with the intravenous administration of IV 100mL Isovue-370 100. Post-processing of the angiographic images was performed, with multiplanar reformation and 3D reconstruction. Individualized dose optimization techniques were used for this CT. COMPARISON: CT lung screening November 03, 2018. FINDINGS: Normal enhancement of the main pulmonary artery and right and left pulmonary arteries. Normal enhancement of the bilateral peripheral pulmonary arteries. There is no demonstrated pulmonary embolism. There is aneurysmal dilatation of the ascending aorta. The transverse diameter of the ascending aorta measures 44 mm's. There is no demonstrated aortic dissection. Normal heart and pericardium. Normal mediastinum. Normal hilar regions. Normal visualized trachea and bronchi. The lungs are well expanded. 3mm left apical nodule. Otherwise unremarkable pulmonary parenchyma. Normal pleura. Normal chest wall structures. Normal osseous structures. Normal visualized upper abdomen. CT/CTA Chest W/WO Contrast IMPRESSION: Dilatation of the ascending aorta up to 4.4 cm. Small 3 mm left apical nodule. CT follow-up recommendations listed below. Fleischner Society Recommendations for Follow-up and Management of Nodules Smaller than 8 mm Detected Incidentally at Nonscreening CT. Nodule size < or = 4 mm: Low-Risk Patient - No follow-up needed. High-Risk Patient - Follow-up CT at 12 months; if unchanged, no further follow-up. Low-Risk = Minimal or absent history of smoking and of other known risk factors. High-Risk = History of smoking or of other known risk factors. Electronically Signed: Stevan Jay, at 15:18 EDT Tel , Service support ,
[2019-01-24 14:20] LABS: CREATININE FINGERSTICK 0.8 mg/dL (0.55-1.02); EGFR FINGERSTICK > 60.0000 mL/min (>60)
== END ==
PROVIDERS: Family Provider Family Medicine; PCP Family Medicine; Referring Provider Family Medicine; Visit Provider Family Medicine
DX: R91.8 Other nonspecific abnormal finding of lung field (principal)
CPT/HCPCS: 71275; Q9967

== ENCOUNTER → 2019-04-06 09:26 | Outpatient (CLI) | payer MEDICARE, OTHER, SELFPAY ==
--- NOTE | 2019-04-06 09:29 | ECHOD_ITS ---
Version 2 Reason For Study: ASC AORTA ANEURYSM Procedure This was a 2D Doppler, Color Flow transthoracic echocardiogram. Exam performed in department. Left Ventricle Normal LV size. The estimated ejection fraction is 60 %. No evidence for diastolic dysfunction. No regional wall motion abnormalities noted. Right Ventricle Normal RV size. Normal systolic function. Atria The left atrium is mildly enlarged. Normal right atrium. No doppler evidence for ASD. Mitral Valve There is no mitral valve stenosis. Mild (1+) mitral valve insufficiency. Tricuspid Valve There is no tricuspid stenosis. Trivial tricuspid valve insufficiency. Pulmonary artery systolic pressure is 25 mmHg. Aortic Valve Trisinus/trileaflet aortic valve. There is no aortic stenosis. No aortic valve insufficiency. Pulmonic Valve There is no pulmonic valvular stenosis. No pulmonic valve insufficiency. Great Vessels Mildly dilated aortic root. Pericardium/Pleural No pericardial effusion. MMode/2D Measurements & Calculations LVIDd: 5.3 cm IVSd: 0.89 cm Ao root diam: 4.2 cm LVIDs: 3.2 cm LVPWd: 0.97 cm RVDd: 3.5 cm FS: 39.5 % LAV(MOD-bp): 59.7 ml LA A4 area: 20.9 cm2 LA dimension(2D): 4.3 cm LAV(MOD-bp) Indexed: 28.8 ml/m2 LAV(MOD-sp2): 51.7 ml LAV(MOD-sp4): 66.9 ml RA A4 area: 14.6 cm2 Time Measurements MV dec time: 0.20 sec Doppler Measurements & Calculations MV E max sergio: 80.4 cm/sec Lat Peak E' Sergio: 7.3 cm/sec Med Peak E' Sergio: 4.5 cm/sec MV A max sergio: 120.9 cm/sec E/E' lat: 11.0 E/E' med: 18.1 MV E/A: 0.67 Ao V2 max: 182.5 cm/sec LV V1 max: 130.8 cm/sec TR max sergio: 236.3 cm/sec Ao max P.3 mmHg LV V1 max P.9 mmHg TR max P.4 mmHg Interpretation Summary The estimated ejection fraction is 60 %. No evidence for diastolic dysfunction. Trivial tricuspid valve insufficiency. Pulmonary artery systolic pressure is 25 mmHg. Mildly dilated aortic root. The left atrium is mildly enlarged. Ordering Physician: Bahman Begum Referring Physician: STEPHANIE BELL Performed By: Lorena Brian RDCS, RVT
== END ==
PROVIDERS: Family Provider Family Medicine; PCP Family Medicine; Referring Provider Internal Medicine Cardiovascular Disease; Visit Provider Internal Medicine Cardiovascular Disease
DX: I34.0 Nonrheumatic mitral (valve) insufficiency (principal); I77.810 Thoracic aortic ectasia
CPT/HCPCS: 93306

== ENCOUNTER → 2019-05-19 09:10 | Outpatient (CLI) | payer MEDICARE, OTHER, SELFPAY ==
[2019-05-19 12:59] LABS: Absolute Lymphocyte Count 2.21 X10^3/uL (0.83-4.51); Absolute Neutrophil Count 5.4 X10^3/uL (2.0-7.7); Basophil# 0.08 X10^3/uL; Basophil% 0.9 % (0-1); Eosinophil# 0.51 X10^3/uL; Eosinophils% 5.7 % (0-5); Hematocrit 38.6 % (37-47); Hemoglobin 11.9 g/dL (12.0-15.0); Lymphocyte # 2.21 X10^3/ul (4.0); Lymphocyte % 24.8 % (19-41); Mean Corp Hgb Conc 30.8 g/dL (32-36); Mean Corpuscular Hgb 29.5 pg (27.0-32.0); Mean Corpuscular Volume 95.5 fL (81-99); Mean Platelet Vol. 9.1 fl (6.2-12.0); Monocyte% 7.8 % (0-10); NRBC Flagged by Analyzer 0 % (0-5); Neutrophil % 60.6 % (47-70); Platelet Count 352 K/mm3 (150-450); RBC Distribution Width CV 14.6 % (11.6-14.6); RBC Distribution Width SD 50.9 fl (35.1-43.9); Red Blood Count 4.04 M/mm3 (4.2-5.4); White Blood Count 8.9 K/mm3 (4.4-11.0)
[2019-05-19 13:14] LABS: ALB/GLOB Ratio 0.9 RATIO (0.9-2.4); AST(SGOT) 19 U/L (15-37); Alanine Aminotransfer ALT/SGPT 27 U/L (13-56); Albumin, Serum 3.9 g/dL (3.2-5.0); Alkaline Phosphatase 54 U/L (45-117); Anion Gap 5 (5-15); BUN 18 mg/dL (7-18); BUN/Creat Ratio 20.4 RATIO (10-20); Calcium,Total 9.7 mg/dL (8.5-10.1); Chloride 102 mmol/L (98-107); Cholesterol 153 mg/dL (200); Creatinine, Serum 0.88 mg/dL (0.55-1.02); EST Glomerular Filtration Rate 68 mL/min (>60); Est Glom Filt Rate - Afr Amer 82 mL/min (>60); Globulin 4.4 g/dL (2.2-4.2); Glucose 80 mg/dL (74-106); High Density Lipoprotein 54 mg/dL; LDH 221 U/L (84-246); Potassium 4.1 mmol/L (3.5-5.1); Protein, Total 8.3 g/dL (6.4-8.2); Sodium Level 140 mmol/L (136-145); Triglycerides 106 mg/dL; Very Low Density Lipoprotein 21 mg/dL (5-40)
[2019-05-24 14:08] LABS: PROEL- Albumin 3.8 g/dL (2.9-4.4); PROEL- Alpha-1 Globulin 0.3 g/dL (0.0-0.4); PROEL- Alpha-2 Globulin 0.9 g/dL (0.4-1.0); PROEL- Gamma Globulin 1.5 g/dL (0.4-1.8); PROEL- Globulin, Total 3.8 g/dL (2.2-3.9); PROEL- TOTAL PROTEIN 7.6 g/dL (6.0-8.5); PROELU- Albumin, Urine 31.3 % (.); PROELU- Alpha-2-Globulin,Ur 11.3 % (.); PROELU- Beta Globulin, Ur 31.4 % (.); PROELU- Gamma Globulin, Ur 21.9 % (.)
== END ==
PROVIDERS: PCP Family Medicine; Visit Provider Family Medicine
DX: D47.2 Monoclonal gammopathy (principal); I10 Essential (primary) hypertension; M54.5 Low back pain; E78.5 Hyperlipidemia, unspecified
CPT/HCPCS: 36415; 80053; 80061; 83615; 84165; 84166; 85025

== ENCOUNTER → 2019-08-10 12:23 | Outpatient (CLI) | payer MEDICARE, OTHER, SELFPAY ==
--- NOTE | 2019-08-10 12:26 | CT_ITS ---
STUDY: CT CHEST WITH CONTRAST REASON FOR EXAM: Female, 69 years old. ASCENDING AORTA DILATION, COPD, HTN RADIATION DOSAGE (If Supplied By Facility): CTDIvol = ( 20.04 ) mGy, DLP = ( 694.74 ) mGycm TECHNIQUE: Transaxial imaging was performed following intravenous administration of IV 100mL Isovue-300. Multiplanar coronal and sagittal images were reformatted. Individualized dose optimization techniques were used for this CT. COMPARISON: Comparison is made with prior examination dated November 03, 2018. FINDINGS: Hyperinflation. There is no demonstrated pleural abnormality. Normal heart and pericardium. Normal mediastinum. Normal hilar regions. Normal enhanced pulmonary arteries. The ascending thoracic aorta as a maximum transverse dimension of 3.9 cm. This is upper limits of normal. There are multi-level degenerative changes of the thoracic spine. There is no demonstrated abnormality of the visualized upper abdomen. CT/Chest WITH Contrast IMPRESSION: The ascending thoracic aorta has a transverse dimension of 3.9 cm. This is upper limits of normal. Stable mild emphysematous changes. Electronically Signed: Grzegorz Romano, at 13:31 EDT , Service support ,
[2019-08-10 12:41] LABS: CREATININE FINGERSTICK 0.9 mg/dL (0.55-1.02)
== END ==
PROVIDERS: PCP Family Medicine; Referring Provider Internal Medicine Cardiovascular Disease; Visit Provider Internal Medicine Cardiovascular Disease
DX: I77.810 Thoracic aortic ectasia (principal)
CPT/HCPCS: 71260; Q9967

== ENCOUNTER → 2019-11-23 14:46 | Outpatient (CLI) | payer MEDICARE, OTHER, SELFPAY ==
[2019-11-23 16:26] LABS: Eosinophil# 0.55 X10^3/uL; Eosinophils% 5.4 % (0-5); Hematocrit 36.6 % (37-47); Hemoglobin 11.6 g/dL (12.0-15.0); Lymphocyte % 27.2 % (19-41); Mean Corp Hgb Conc 31.7 g/dL (32-36); Mean Corpuscular Hgb 29.3 pg (27.0-32.0); Mean Corpuscular Volume 92.4 fL (81-99); Mean Platelet Vol. 9.1 fl (6.2-12.0); Monocyte# 0.85 X10^3/uL; Monocyte% 8.3 % (0-10); NRBC Flagged by Analyzer 0 % (0-5); Neutrophil # 5.95 X10^3/uL (2.7-7.7); Neutrophil % 57.8 % (47-70); Platelet Count 404 K/mm3 (150-450); RBC Distribution Width CV 14.7 % (11.6-14.6); RBC Distribution Width SD 49.8 fl (35.1-43.9); Red Blood Count 3.96 M/mm3 (4.2-5.4); White Blood Count 10.3 K/mm3 (4.4-11.0)
[2019-11-23 16:38] LABS: ALB/GLOB Ratio 0.9 RATIO (0.9-2.4); AST(SGOT) 12 U/L (15-37); Alanine Aminotransfer ALT/SGPT 23 U/L (13-56); Alkaline Phosphatase 57 U/L (45-117); Anion Gap 5 (5-15); BUN 19 mg/dL (7-18); BUN/Creat Ratio 20.9 RATIO (10-20); Calcium,Total 9.7 mg/dL (8.5-10.1); Chloride 102 mmol/L (98-107); Creatinine, Serum 0.91 mg/dL (0.55-1.02); EST Glomerular Filtration Rate 65 mL/min (>60); Est Glom Filt Rate - Afr Amer 79 mL/min (>60); Globulin 4.5 g/dL (2.2-4.2); Glucose 86 mg/dL (74-106); LDH 140 U/L (84-246); Potassium 3.7 mmol/L (3.5-5.1); Protein, Total 8.5 g/dL (6.4-8.2); Sodium Level 138 mmol/L (136-145)
[2019-11-28 12:07] LABS: PROEL- A/G Ratio 1.1 (0.7-1.7); PROEL- Alpha-1 Globulin 0.3 g/dL (0.0-0.4); PROEL- Alpha-2 Globulin 0.9 g/dL (0.4-1.0); PROEL- Gamma Globulin 1.4 g/dL (0.4-1.8); PROEL- Globulin, Total 3.6 g/dL (2.2-3.9); PROEL- TOTAL PROTEIN 7.6 g/dL (6.0-8.5); PROELU- Albumin, Urine 22.2 % (.); PROELU- Alpha-1-Globulin,Ur 2.4 % (.); PROELU- Alpha-2-Globulin,Ur 13.5 % (.); PROELU- Beta Globulin, Ur 45.3 % (.); PROELU- Gamma Globulin, Ur 16.5 % (.); Total Protein, Ur 6.4 mg/dL (Not Estab.)
== END ==
PROVIDERS: PCP Family Medicine; Visit Provider Family Medicine
DX: D47.2 Monoclonal gammopathy (principal); M13.0 Polyarthritis, unspecified; Z51.81 Encounter for therapeutic drug level monitoring
CPT/HCPCS: 36415; 80053; 83615; 84165; 84166; 85025

== ENCOUNTER → 2020-02-21 10:57 | Outpatient (CLI) | payer MEDICARE, OTHER, SELFPAY ==
--- NOTE | 2020-02-21 11:01 | RAD_ITS ---
STUDY: X-RAY - LEFT HAND, ATTENTION FIFTH FINGER REASON FOR EXAM: Female, 69 years old. Pain TECHNIQUE: 3 view(s) of the finger were obtained. COMPARISON: None. FINDINGS: There is no evidence of fracture or dislocation. Mild to moderate degenerative changes are present with osteophytes. There are no radiodense foreign bodies. RAD/Finger(s) Min 2 Views IMPRESSION: No fracture or dislocation. Mild to moderate degenerative changes with osteophytes. Electronically Signed: Cooper Denise, at 17:42 EST Tel , Service support ,
== END ==
PROVIDERS: PCP Family Medicine; Referring Provider Family Medicine; Visit Provider Family Medicine
DX: M79.645 Pain in left finger(s) (principal)
CPT/HCPCS: 73140

== ENCOUNTER → 2020-04-19 11:26 | Outpatient (CLI) | payer MEDICARE, OTHER, SELFPAY ==
--- NOTE | 2020-04-19 11:31 | BI_ITS ---
MAMMOGRAPHY - BILATERAL SCREENING REASON FOR EXAM: Female, 70 years old. Routine annual screening examination. PERTINENT HISTORY: Aunt with breast cancer. TECHNIQUE: Digital bilateral breast alessio (3D mammographic acquisition) in the CC and MLO projections. 2-D mediolateral oblique (MLO) and craniocaudad (CC) views of both breasts were obtained. CAD: Full Field Digital Mammography with Computer Added Detection was performed. COMPARISON: Comparison is made with prior outside examination dated 04/14/2019 FINDINGS: Breast Composition: The breasts are almost entirely fatty. There are no dominant masses or suspicious calcifications. Stable benign-appearing bilateral axillary lymph nodes. No other significant abnormalities are identified. There has been no significant change since the prior study. BI/SCRN MAMM (CAD)W/ALESSIO BILAT IMPRESSION: Stable bilateral screening mammogram. Yearly follow-up mammogram recommended. (A) ASSESSMENT CATEGORY: BIRADS Category 2: Benign. A letter regarding these results will be sent to the patient by the facility within 30 days. Approximately 10% of breast cancers are not detected by mammography. A normal mammogram should not delay biopsy of a clinically suspicious abnormality. [id number] Electronically Signed: Grzegorz Romano MD at 11:22 EST , Service support ,
== END ==
PROVIDERS: PCP Family Medicine; Referring Provider Family Medicine; Visit Provider Family Medicine
DX: Z12.31 Encounter for screening mammogram for malignant neoplasm of breast (principal)
CPT/HCPCS: 77063; 77067

== ENCOUNTER 2020-05-17 08:48 | Inpatient (IN) | payer MEDICARE, OTHER, SELFPAY ==
--- NOTE | 2020-05-13 12:46 | EKG12_ITS ---
Test Reason : PREOP Blood Pressure : / mmHG Vent. Rate : 065 BPM Atrial Rate : 065 BPM P-R Int : 194 ms QRS Dur : 086 ms QT Int : 392 ms P-R-T Axes : 068 085 080 degrees QTc Int : 407 ms Normal sinus rhythm Normal ECG Confirmed by TERI GRAF, DANI ([id number]), telegraph editor KIERAN LANIER ([id number]) on 05/14/2020 10:56:23 AM Referred By: Sera Torres Confirmed By:DANI WILLIAMSON MD
[2020-05-13 13:49] LABS: Hematocrit 38.3 % (37-47); Hemoglobin 12.2 g/dL (12.0-15.0); Mean Corp Hgb Conc 31.9 g/dL (32-36); Mean Corpuscular Hgb 29.8 pg (27.0-32.0); Mean Corpuscular Volume 93.6 fL (81-99); Mean Platelet Vol. 8.5 fl (6.2-12.0); Platelet Count 366 K/mm3 (150-450); RBC Distribution Width CV 13.5 % (11.6-14.6); Red Blood Count 4.09 M/mm3 (4.2-5.4); White Blood Count 8.6 K/mm3 (4.4-11.0)
[2020-05-13 14:08] LABS: ALB/GLOB Ratio 0.9 RATIO (0.9-2.4); AST(SGOT) 18 U/L (15-37); Alanine Aminotransfer ALT/SGPT 21 U/L (13-56); Alkaline Phosphatase 60 U/L (45-117); Anion Gap 4 (5-15); BUN 22 mg/dL (7-18); BUN/Creat Ratio 26.1 RATIO (10-20); Calcium,Total 9.9 mg/dL (8.5-10.1); Chloride 102 mmol/L (98-107); Creatinine, Serum 0.84 mg/dL (0.55-1.02); EST Glomerular Filtration Rate 71 mL/min (>60); Est Glom Filt Rate - Afr Amer 86 mL/min (>60); Globulin 4.3 g/dL (2.2-4.2); Glucose 91 mg/dL (74-106); Potassium 4.2 mmol/L (3.5-5.1); Protein, Total 8.3 g/dL (6.4-8.2); Sodium Level 137 mmol/L (136-145)
[2020-05-17] VITALS (15 sets, daily range): BP systolic 90–147; BP diastolic 36–91; PULSE 59–106; RESP 16–18; TEMP 36.2–36.9; O2SAT 92–99; BMI 36.3
[2020-05-17] MEDS: Lactated Ringers 1,000 ML 100 ML IV ×2 (07:15→09:01)
[2020-05-17] MEDS: Cefazolin 2 GM in 0.9% Normal Saline 100 ML IV (08:46)
--- NOTE | 2020-05-17 08:46 | OP.PCM_ITS ---
Problem List (1) Cystocele Status: Acute (2) Vaginal vault prolapse Status: Acute (3) Stress incontinence Status: Acute Report of Operation Date of Procedure: 05/17/20 Pre-Operative Diagnosis: cystocele, vaginal vault prolapse, stress incontinence Post-Operative Diagnosis: same Surgery/Procedure Performed:: Vaginal vault suspension with dermis, bilateral sacrospinous ligament fixation, midurethral sling, cystoscopy with right ureteral catheterization Type of Anesthesia:: General Specimen's removed: None Estimated Blood Loss (mL): 25cc Description of Procedure: The patient is a 70-year-old female who underwent a hysterectomy in 2017 and presented to the office with pelvic organ prolapse and incontinence. After undergoing pelvic examination, cystoscopy and urodynamics, the patient decided to proceed with surgical intervention. Informed consent was obtained including a discussion of COVID-19. The patient was taken to the operating room placed on the operating room table. Anesthesia monitored the head, neck, airway, IV access and vital signs throughout the case. Once anesthesia was appropriate administered, the patient was placed into dorsal lithotomy in Trendelenburg position. She was prepped and draped in usual sterile fashion. A Raymond catheter was placed into the urethra and the bladder was emptied. The balloon was inflated with 10 cc of saline. The Rosebud retractor was used for retracting the external genitalia. On thorough examination, it became clear that the significant portion of prolapse was secondary to a large enterocele. This area was isolated, injected submucosally for hydrostatic dissection and hemostatic control, and opened with a knife. Dissection was performed to push the enterocele sac away from the vaginal mucosa. Blunt dissection was continued until the ischial spine and sacrospinous ligaments were identified on either side and freed from surrounding tissues. Using the Capio device and Ethibond suture, access to the sacrospinous ligament was obtained bilaterally. The suture was then brought through a piece of dermis cut to size and then through the apex of the vaginal mucosa bilaterally. The dermis was then sutured into position with 2-0 interrupted Vicryl on either side as well. At this time the vaginal mucosa was closed over the dermis with running interlocking 2-0 Vicryl. The Ethibond sutures were then tied into position and apex prolapse was reduced. At this time attention was turned toward the mid urethra. It was injected submucosally with lidocaine with epinephrine. A vertical midline incision was made and blunt and sharp dissection was performed on either side of the urethra to gain access to the obturator complexes bilaterally with the trocar. In first attempt of passage on the right side the sling was malpositioned and was removed. There was a tear in the mesh and a new sling was used. The new sling was inserted without difficulty into the obturator complexes bilaterally. The sling lay flat against the urethra without tension. It was positioned using a right angle clamp. The tensioning suture was cut. The midline incision was closed using running interlocking 2-0 Vicryl. At this time the Raymond catheter was removed and a cystoscope was inserted through the urethra under direct visualization into the urinary bladder. There were no bladder injuries or foreign bodies identified. Bilateral ureteral orifices were observed in the area of the trigone. A left ureteral jet was easily observed. On the right side, a 5 Khmer whistle-tip catheter was inserted to 20 cm without difficulty. There is no evidence of obst ruction or injury to the ureter. This time the Raymond catheter was replaced, the balloon was inflated and the bladder was drained. The vagina was packed with vaginal packing and estrogen cream. The patient was then awakened and taken to the recovery room in good condition. There were no complications during the procedure. Grafts/Implants Used: Dermis, Altis midurethral sling - Complications None - Admit VTE Documentation VTE Present on Admission: Yes VTE Mechan Device Prophylaxis: SCD's VTE Pharm Prophylaxis ordered?: Yes
--- NOTE | 2020-05-17 08:52 | DCINST_ITS ---
Discharge Diet: No Restrictions Discharge Activity: May Not Drive, May Shower, - - may not tub bathe, swim or hot tub. No sexual activity. No strenuous activity or exercise. No lifting over 5 pounds. No vacuuming. No driving for 2 weeks May resume sexual activity in: 8 weeks Lifting Restrictions: 5 pounds Call your doctor if your incision/area has: Continuous Slow Oozing, Sudden Increased Bleeding, Increased Pain/ Swelling, Foul Smelling Discharge, Swelling at the incision site Call your doctor if you observe: Fever of 101 or Higher, Inability to urinate, Inability to have a bowel movement, Calf discomfort, Uncontrolled pain Additional Instructions: continue vaginal estrogen cream Allergies/Adverse Reactions: Allergies lisinopril Allergy (Severe, Verified 05/17/20 11:39) extreme cough Medications to take at Discharge Ergocalciferol [Vitamin D] 50,000 unit PO MO 06/09/16 Hydrocodone Bitart/Apap 5-325 [Diamond [place] 5/325] 1 tab PO Q6H PRN PRN 06/09/16 Meloxicam [Mobic] 15 mg PO DAILY 06/09/16 Multivit-Minerals/Folic Acid [One Daily Womens 50 Plus Tab] 0.4 mg PO DAILY 06/09/16 Turmeric/Turmeric Root Extract [Turmeric 500 mg Capsule] 500 mg PO DAILY 06/09/16 Docusate Sodium [Colace] 100 mg PO BID PRN PRN #60 cap 06/19/16 losartan 100 mg tablet 100 mg PO QDAY 04/16/17 Albuterol Aerosols [Ventolin Aerosols] 2.5 mg INHALATION Q6HWA.RT 05/10/20 Cyanocobalamin [Vitamin B12] 500 mcg PO DAILY@0800 05/10/20 Dextroamphetamine/Amphetamine [Adderall 10 mg Tablet] 10 mg PO DAILY 05/10/20 Sertraline HCl [Zoloft] 25 mg PO DAILY 05/10/20 Cephalexin [Keflex] 500 mg PO Q12 #6 cap 05/17/20 Hydrocodone Bitart/Apap 5-325 [[place]amond [place] 5/325] 1 tablet PO Q6H PRN PRN #20 tablet 05/17/20 The following prescriptions were given: Cephalexin [Keflex] 500 mg PO Q12 #6 cap Transmission Status: Pending to [facility] Hydrocodone Bitart/Apap 5-325 [[place]amond [place] 5/325] 1 tablet PO Q6H PRN PRN #20 tablet PRN Reason: Pain Score 1-5 Transmission Status: Sent to [facility] Primary Care Physician: Ana Winslow DO [Primary Care Provider] - Test Results: Test results from this visit will be discussed in further detail at your follow- up appointment, if applicable. Please Follow Up With: Sera Torres MD When: call office for appt. Proposed Discharge Date: 05/18/20
[2020-05-17] MEDS: Estrogens,Conj. 1 Tube 1 DOSE (10:00)
[2020-05-17] MEDS: Lidocaine 1% /Epi 1:100 (20ml) 20 ML Vial (10:00)
[2020-05-17] MEDS: 0.9% Saline Lock 10 ML Syringe IV ×2 (11:56→23:51)
[2020-05-17] MEDS: Morphine 4 MG/ML Syringe 2 MG IV ×2 (11:56→23:51)
[2020-05-17] MEDS: Dextrose 5%-Lactated Ringers 1,000 ML 100 ML IV ×2 (11:57→21:11)
[2020-05-17] MEDS: CLARIFY ORDER NOTE (12:25)
[2020-05-17] MEDS: Cephalexin 500 MG Capsule PO ×2 (13:22→21:10)
[2020-05-17] MEDS: HYDROcodone Bitartrate/Apap 5/325 Tablet PO ×2 (13:22→21:10)
[2020-05-17] MEDS: Sertraline 50 MG Tablet 25 MG PO (13:22)
[2020-05-17] MEDS: Meloxicam 15 MG Tablet PO (13:23)
[2020-05-17] MEDS: Docusate Sodium 100 MG Capsule PO ×2 (13:24→21:11)
--- NOTE | 2020-05-17 17:40 | NURSING ---
back to room, kpad given by toe puller. pt had episode of nausea. states burped a couple times then it passed refused zofran, denies dizziness. zita bearden updated./verbal report given
[2020-05-17 17:55] LABS: Absolute Lymphocyte Count 2.16 X10^3/uL (0.83-4.51); Absolute Neutrophil Count 9.1 X10^3/uL (2.0-7.7); Basophil# 0.06 X10^3/uL; Basophil% 0.5 % (0-1); Eosinophil# 0.09 X10^3/uL; Eosinophils% 0.7 % (0-5); Hematocrit 32.2 % (37-47); Hemoglobin 10.3 g/dL (12.0-15.0); Lymphocyte # 2.16 X10^3/ul (4.0); Lymphocyte % 17.3 % (19-41); Mean Corpuscular Hgb 30.5 pg (27.0-32.0); Mean Corpuscular Volume 95.3 fL (81-99); Mean Platelet Vol. 8.2 fl (6.2-12.0); Monocyte# 0.99 X10^3/uL; NRBC Flagged by Analyzer 0 % (0-5); Neutrophil # 9.12 X10^3/uL (2.7-7.7); Neutrophil % 73.3 % (47-70); Platelet Count 283 K/mm3 (150-450); RBC Distribution Width CV 13.7 % (11.6-14.6); Red Blood Count 3.38 M/mm3 (4.2-5.4); White Blood Count 12.5 K/mm3 (4.4-11.0)
[2020-05-17 18:10] LABS: Anion Gap 2 (5-15); BUN 18 mg/dL (7-18); Chloride 107 mmol/L (98-107); Creatinine, Serum 0.82 mg/dL (0.55-1.02); EST Glomerular Filtration Rate 74 mL/min (>60); Est Glom Filt Rate - Afr Amer 89 mL/min (>60); Estimated Creatinine Clearance 54.32 ml/min; Glucose 93 mg/dL (74-106); Potassium 3.8 mmol/L (3.5-5.1); Sodium Level 142 mmol/L (136-145)
[2020-05-17] MEDS: Ondansetron 4 MG/2 ML Vial IV (18:10)
[2020-05-18] MEDS: HYDROcodone Bitartrate/Apap 5/325 Tablet PO ×2 (04:00→14:26)
[2020-05-18] MEDS: Ondansetron 4 MG/2 ML Vial IV (04:04)
[2020-05-18] MEDS: 0.9% Saline Lock 10 ML Syringe IV ×2 (04:04→07:52)
[2020-05-18 04:07] VITALS: BP 116/92; PULSE 54; RESP 16; TEMP 36.6; O2SAT 100
[2020-05-18] MEDS: Dextrose 5%-Lactated Ringers 1,000 ML 100 ML IV ×2 (06:13→21:56)
[2020-05-18 07:30] VITALS: RESP 18
[2020-05-18] MEDS: proMETHazine 25 MG/ML Syringe 12.5 MG IV (07:52)
[2020-05-18] MEDS: Ketorolac 30 MG/ML Syringe IV (07:55)
[2020-05-18 09:59] VITALS: BP 120/84; PULSE 74; RESP 16; TEMP 36.8; O2SAT 100
[2020-05-18] MEDS: Cephalexin 500 MG Capsule PO ×2 (10:49→21:58)
[2020-05-18] MEDS: Meloxicam 15 MG Tablet PO (10:49)
[2020-05-18] MEDS: Enoxaparin 40 MG/0.4 ML Syringe SC (10:49)
[2020-05-18] MEDS: Docusate Sodium 100 MG Capsule PO ×2 (10:49→21:58)
[2020-05-18] MEDS: Sertraline 50 MG Tablet 25 MG PO (10:50)
[2020-05-18 16:20] VITALS: BP 118/68; PULSE 70; RESP 16; TEMP 36.7; O2SAT 92
[2020-05-18 16:21] VITALS: RESP 18
[2020-05-18 22:09] VITALS: BP 130/60; PULSE 73; RESP 16; TEMP 36.8; O2SAT 98
[2020-05-19 04:00] VITALS: BP 135/59; PULSE 58; RESP 16; TEMP 37.4; O2SAT 99
[2020-05-19] MEDS: Acetaminophen 325 MG Tablet 650 MG PO ×2 (08:00→21:20)
[2020-05-19] MEDS: Losartan Potassium 100 MG Tablet PO (08:07)
[2020-05-19] MEDS: Dextrose 5%-Lactated Ringers 1,000 ML 100 ML IV ×2 (08:10→20:45)
[2020-05-19 08:58] VITALS: BP 150/60; PULSE 74; RESP 16; TEMP 36.3; O2SAT 95
[2020-05-19 08:59] VITALS: RESP 18
[2020-05-19] MEDS: Loratadine 10 MG Tablet PO (09:16)
[2020-05-19] MEDS: Enoxaparin 40 MG/0.4 ML Syringe SC (09:16)
[2020-05-19] MEDS: Sertraline 50 MG Tablet 25 MG PO (09:16)
[2020-05-19] MEDS: Docusate Sodium 100 MG Capsule PO ×2 (09:17→21:09)
[2020-05-19] MEDS: Meloxicam 15 MG Tablet PO (09:17)
[2020-05-19] MEDS: Cephalexin 500 MG Capsule PO ×2 (09:17→21:09)
--- NOTE | 2020-05-19 10:23 | CT_ITS ---
EXAM: CT ABDOMEN AND PELVIS WITHOUT INTRAVENOUS CONTRAST CLINICAL INDICATION: NAUSEA/VOMITING TECHNIQUE: Helically acquired images were obtained of the abdomen and pelvis without intravenous contrast. This CT exam was performed using one or more of the following dose reduction techniques: automated exposure control, adjustment of the mA and/or kV according to patient size, and/or use of iterative reconstruction technique. This report was created using [employer] report generation technology. COMPARISON: None. FINDINGS: LOWER THORAX: Mild atelectasis in the bilateral lung bases. No cardiomegaly. No significant pericardial effusion. ABDOMEN: LIVER: Unremarkable. Homogeneous. GALLBLADDER AND BILE DUCTS: Unremarkable. No calcified gallstones. No gallbladder distention or wall edema. No intra- or extrahepatic biliary ductal dilation. PANCREAS: Unremarkable. No focal cystic mass. SPLEEN: Unremarkable. Normal size without focal cystic or solid mass. ADRENALS: Unremarkable. No nodules. KIDNEYS AND URETERS: Unremarkable. Normal renal size and position. No hydronephrosis. STOMACH AND BOWEL: Unremarkable. No stomach or bowel distention. No focal inflammatory change. PELVIS: APPENDIX: No evidence of acute appendicitis. BLADDER: Urinary bladder is decompressed by ESCOBAR catheter. REPRODUCTIVE: Unremarkable as visualized. No mass. ABDOMEN and PELVIS: INTRAPERITONEAL SPACE: Unremarkable. No ascites or other fluid collection. No free air. BONES/JOINTS: Degenerative and operative changes of the lumbar spine. No suspicious lytic or blastic abnormality. SOFT TISSUES: Small fat-containing periumbilical hernia. VASCULATURE: Atherosclerosis of the abdominal aorta and iliac arteries. Abdominal aorta is non-dilated. LYMPH NODES: Unremarkable. No enlarged lymph nodes. CT/Abdomen/Pelvis without Cont IMPRESSION: No acute findings in the abdomen or pelvis. Electronically Signed: Gomez Freed MD ([place]) at 14:05 EST , Service support ,
--- NOTE | 2020-05-19 12:25 | PCM.PROGNOTE ---
Patient Problems: Active and Suspected Problems (Last Reviewed 10/20/17 @ 13:07 by Tiera Adame) Cystocele (Acute) Vaginal vault prolapse (Acute) Stress incontinence (Acute) Subjective: complaining of migraine. Patient and daughter report this same thing happened after her last surgery and she was almost readmitted for dehydration. She feels the nausea is due to the migraine. No significant abdominal pain. Still with some butt and groin pain from the procedure. Not ambulating much and we discussed how important this is. She will walk and concentrate on taking in fluids today. - Physical Exam Vitals/I&O's: Vital Signs Temp Pulse Resp BP Pulse Ox 97.3 F L 74 18 150/60 H 95 05/19/20 08:58 05/19/20 08:58 05/19/20 08:59 05/19/20 08:58 05/19/20 08:58 Oxygen Flow Rate (L/min) 2 Oxygen Delivery Method Room Air Weight: 93.2 kg Body Mass Index (BMI) 36.3 Intake and Output for Last 24 Hours 05/17/20 05/18/20 05/19/20 23:59 23:59 23:59 Intake Total 2926.66 / 2926.66 3503.33 / 3503.33 1746.67 / 1746.67 Output Total 600 / 600 1780 / 1930 800 / 800 Balance 2326.66 / 2326.66 1723.33 / 1573.33 946.67 / 946.67 General: Alert, Oriented x3, Cooperative, No apparent distress HEENT: Atraumatic, Normocephalic Oral: Moist Mucosa Neck: Supple, Trachea Midline Lungs: Normal air movement Cardiovascular: Regular rate Abdomen: Soft, Non Tender, Non-Distended Extremities: No Calf Tenderness, - - SCD's encouraged, she reports usually on, but off now. Skin: No rashes Musculoskeletal: No Muscle Wasting Neurological: Cranial nerves II-XII grossly intact Psych/Mental Status: Normal Affect, Alert and oriented to time, place, person, mood and affect Current Medications Acetaminophen (Acetaminophen 325 Mg Tablet) 650 mg PO Q6H PRN PRN PRN Reason: Pain Score 1-10 Last Admin: 05/19/20 08:00 Dose: 650 mg Documented by: Hydrocodone Bitart/Acetaminophen (Hydrocodone Bitartrate/Apap 5/325 Tablet) 2 tablet PO Q6H PRN PRN PRN Reason: Pain Score 1-5 Last Admin: 05/18/20 14:26 Dose: 2 tablet Documented by: Albuterol Sulfate (Albuterol 2.5 Mg/3 Ml Vial.Neb.) 2.5 mg INHALATION Q6HWA.RT [facility] Belladonna Alkaloids/Opium (Opium/Belladonna Alkaloids 60 Mg/15 Mg Suppository) 60 mg RC Q6H PRN PRN PRN Reason: groin pain Cephalexin (Cephalexin 500 Mg Capsule) 500 mg PO Q12 [facility] Last Admin: 05/19/20 09:17 Dose: 500 mg Documented by: Docusate Sodium (Docusate Sodium 100 Mg Capsule) 100 mg PO BID [facility] Last Admin: 05/19/20 09:17 Dose: 100 mg Documented by: Enoxaparin Sodium (Enoxaparin 40 Mg/0.4 Ml Syringe) 40 mg SC DAILY [facility] Last Admin: 05/19/20 09:16 Dose: 40 mg Documented by: Sodium Chloride () 250 mls @ 15 mls/hr IV .[id number] PRN PRN Reason: Saline Flush Dextrose/Lactated Ringer's () 1,000 mls @ 100 mls/hr IV .Q10H [facility] Last Infusion: 05/19/20 10:32 Dose: 0 mls/hr Documented by: Pantoprazole Sodium 40 mg/ (Sodium Chloride) 110 mls @ 330 mls/hr IV Q12 [facility] Last Infusion: 05/19/20 09:58 Dose: Infused Documented by: Losartan Potassium (Losartan Potassium 100 Mg Tablet) 100 mg PO DAILY [facility] Last Admin: 05/19/20 08:07 Dose: 100 mg Documented by: Meloxicam (Meloxicam 15 Mg Tablet) 15 mg PO DAILY [facility] Last Admin: 05/19/20 09:17 Dose: 15 mg Documented by: Menthol (Menthol 226.8 Gm Jar) 1 applic TP BID PRN PRN PRN Reason: Pain 1-10 Morphine Sulfate (Morphine 4 Mg/Ml Syringe) 2 mg IV Q4H PRN PRN PRN Reason: Pain Score 6-10 Last Admin: 05/17/20 23:51 Dose: 2 mg Documented by: Ondansetron HCl (Ondansetron 4 Mg/2 Ml Vial) 4 mg IV Q8H PRN PRN PRN Reason: NAUSEA Last Admin: 05/18/20 04:04 Dose: 4 mg Documented by: Sertraline HCl (Sertraline 50 Mg Tablet) 25 mg PO DAILY [facility] Last Admin: 05/19/20 09:16 Dose: 25 mg Documented by: Sodium Chloride (0.9% Saline Lock 10 Ml Syringe) 10 - 40 ml IV UD PRN PRN Reason: SALINE FLUSH Last Admin: 05/18/20 07:52 Dose: 10 ml Documented by: Medical Necessity - Tobacco Use Smoking Status: Former smoker Tobacco Use: Non-smoker Assessment/Plan All Active Problems (Last Reviewed 10/20/17 @ 13:07 by Tiera Adame) Cystocele (Acute) Vaginal vault prolapse (Acute) Stress incontinence (Acute) SUTTON (dyspnea on exertion) (Acute) History of hysterectomy (Resolved) History of colonoscopy (Resolved) History of appendectomy (Resolved) Sciatica (Acute) Monoclonal gammopathy of unknown significance (Acute) Vitamin D deficiency (Acute) Benign neoplasm of anal canal (Acute) Calcaneal spur (Acute) Joint pain of leg (Acute) Skin lesion (Acute) S/P laparoscopic assisted vaginal hysterectomy (LAV[facility]) (Acute) IVF, ambulation, supportive care consult hospitalist for migraine management, discussed with , appreciate medical management. labs await final report on CT from radiology, no hydronephrosis, no apparent bowel obstruction. Raymond in place.
[2020-05-19] MEDS: 0.9% Saline Lock 10 ML Syringe IV ×3 (12:57→15:57)
[2020-05-19] MEDS: Ondansetron 4 MG/2 ML Vial IV (12:57)
[2020-05-19 13:00] LABS: Basophil# 0.04 X10^3/uL; Basophil% 0.4 % (0-1); Eosinophil# 0.05 X10^3/uL; Eosinophils% 0.5 % (0-5); Hematocrit 33.3 % (37-47); Hemoglobin 10.2 g/dL (12.0-15.0); Lymphocyte % 15.5 % (19-41); Mean Corp Hgb Conc 30.6 g/dL (32-36); Mean Corpuscular Hgb 29.7 pg (27.0-32.0); Mean Corpuscular Volume 96.8 fL (81-99); Mean Platelet Vol. 8.2 fl (6.2-12.0); Monocyte# 0.64 X10^3/uL; Monocyte% 6.2 % (0-10); NRBC Flagged by Analyzer 0 % (0-5); Neutrophil # 7.99 X10^3/uL (2.7-7.7); Neutrophil % 77.1 % (47-70); Platelet Count 253 K/mm3 (150-450); RBC Distribution Width CV 13.4 % (11.6-14.6); RBC Distribution Width SD 47.8 fl (35.1-43.9); Red Blood Count 3.44 M/mm3 (4.2-5.4); White Blood Count 10.4 K/mm3 (4.4-11.0)
[2020-05-19 13:14] LABS: Anion Gap 3 (5-15); BUN 12 mg/dL (7-18); BUN/Creat Ratio 18.4 RATIO (10-20); Calcium,Total 9.1 mg/dL (8.5-10.1); Chloride 102 mmol/L (98-107); Creatinine, Serum 0.65 mg/dL (0.55-1.02); EST Glomerular Filtration Rate 96 mL/min (>60); Est Glom Filt Rate - Afr Amer 116 mL/min (>60); Estimated Creatinine Clearance 44.54 ml/min; Glucose 99 mg/dL (74-106); Potassium 3.9 mmol/L (3.5-5.1); Sodium Level 139 mmol/L (136-145)
--- NOTE | 2020-05-19 13:16 | PCM.CONS.GEN ---
Problem List (1) Migraine Status: Acute Qualifiers: Migraine type: without aura Status migrainosus presence: without status migrainosus Reason for Consult Date of Consultation: 05/19/20 Reason for Consultation: migraine History of Present Illness: The patient is a 70 year old F who underwent a vaginal vault suspension on the by Dr. Torres. On the , patient start experiencing a right frontal headache that is persisted through today. Patient has had migraines similar to this related with the back surgery in the past that did resolve spontaneously. Patient has been having some nausea and some with this. Denies any aura nor any scotomata. [] Past Medical History Past Medical History (Chronic Problems): Chronic Problems (Last Reviewed 10/20/17 @ 13:07 by Tiera Adame) Asthma (Chronic) HTN (hypertension) (Chronic) Depression (Chronic) Ichthyosis congenita (Chronic) Osteoarthritis (Chronic) Carpal tunnel syndrome (Chronic) Mild DJD (Chronic) COPD (chronic obstructive pulmonary disease) (Chronic) VANESA (obstructive sleep apnea) (Chronic) BiPAP 13/9 cmH2O Obesity (Chronic) Tobacco dependence in remission (Chronic) Medical History: Medical History (Last Reviewed 05/19/20 @ 13:[address] 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 Calcaneal spur (Acute) M77.30 Depression (Chronic) F32.9 Joint pain of leg (Acute) M25.50 Skin lesion (Acute) L98.9 Ichthyosis congenita (Chronic) Q80.9 Osteoarthritis (Chronic) M19.90 Carpal tunnel syndrome (Chronic) G56.00 Mild DJD (Chronic) COPD (chronic obstructive pulmonary disease) (Chronic) J44.9 VANESA (obstructive sleep apnea) (Chronic) G47.33 BiPAP 13/9 cmH2O Obesity (Chronic) E66.9 Tobacco dependence in remission (Chronic) F17.201 Allergies lisinopril Allergy (Severe, Verified 05/17/20 11:39) extreme cough Home Medications: Ambulatory Orders Medication Instructions Recorded Ergocalciferol [Vitamin D] 50,000 unit PO MO 06/09/16 Hydrocodone Bitart/Apap 5-325 1 tab PO Q6H PRN PRN 06/09/16 [[place] 5/325] Meloxicam [Mobic] 15 mg PO DAILY 06/09/16 Multivit-Minerals/Folic Acid [One 0.4 mg PO DAILY 06/09/16 Daily Womens 50 Plus Tab] Turmeric/Turmeric Root Extract 500 mg PO DAILY 06/09/16 [Turmeric 500 mg Capsule] Docusate Sodium [Colace] 100 mg PO BID PRN PRN #60 cap 06/19/16 losartan 100 mg tablet 100 mg PO QDAY 04/16/17 Albuterol Aerosols [Ventolin 2.5 mg INHALATION Q6HWA.RT 05/10/20 Aerosols] Cyanocobalamin [Vitamin B12] 500 mcg PO DAILY@0800 05/10/20 Dextroamphetamine/Amphetamine 10 mg PO DAILY 05/10/20 [Adderall 10 mg Tablet] Sertraline HCl [Zoloft] 25 mg PO DAILY 05/10/20 Cephalexin [Keflex] 500 mg PO Q12 #6 cap 05/17/20 Hydrocodone Bitart/Apap 5-325 1 tab PO Q6H PRN PRN #20 tab 05/17/20 [[place] 5/325] Surgical History: Surgical History (Last Reviewed 05/19/20 @ 13:[address] Mendez Ramos DO) History of hysterectomy (Resolved) Z98.890, Z90.710 History of colonoscopy (Resolved) Z98.890 History of appendectomy (Resolved) Z98.890, Z90.49 S/P laparoscopic assisted vaginal hysterectomy (LAVH) (Acute) Z90.710 Smoking Status: Former smoker Tobacco Use: Non-smoker - *Family History Maternal Family History: Family History (Last Reviewed 05/19/20 @ 13:[address] Mendez Ramos DO) Mother Asthma Colon cancer Aunt Colon cancer Father Cancer Review of Systems Constitutional: Denies: Anorexia, Chills, Fever Eyes: Denies: Blurred vision, Double vision HEENT: Denies: Head Aches, Sinus Congestion, Sinus Drainage Cardiovascular: Denies: Chest Pain, Palpitations Respiratory: Denies: Cough, Shortness of breath at rest, Sputum production Gastrointestinal: Reports: Nausea. Denies: Abdominal Pain Hematologic/ Lymphatic: Denies: Easy Bruising, Easy Bleeding, Hx of blood clot Comment: All review of systems were negative except as mentioned above in the history of present illness and the other review of systems. Patient Problems: Active and Suspected Problems (Last Reviewed 10/20/17 @ 13:07 by Tiera Adame) Cystocele (Acute) Vaginal vault prolapse (Acute) Stress incontinence (Acute) - Physical Exam Vitals/I&O's: Vital Signs Temp Pulse Resp BP Pulse Ox 36.3 C L 74 18 150/60 H 95 05/19/20 08:58 05/19/20 08:58 05/19/20 08:59 05/19/20 08:58 05/19/20 08:58 Oxygen Flow Rate (L/min) 2 Oxygen Delivery Method Room Air Weight: 93.2 kg Body Mass Index (BMI) 36.3 Intake and Output for Last 24 Hours 05/17/20 05/18/20 05/19/20 23:59 23:59 23:59 Intake Total 2926.66 / 2926.66 3503.33 / 3503.33 1746.67 / 1746.67 Output Total 600 / 600 1780 / 1930 1100 / 1100 Balance 2326.66 / 2326.66 1723.33 / 1573.33 646.67 / 646.67 General: Alert, Cooperative, No apparent distress HEENT: Atraumatic, Normocephalic, - - No reproducible forehead tenderness. No palpable or tender temporal arteries Oral: Moist Mucosa, No Gingival or Mucosal Lesions/ Ulcerations Neck: No Nodes, Thyroid Normal Size and Texture Lungs: Clear to auscultation, Normal air movement, No rhonchi, No wheeze, No rales Cardiovascular: Regular rate, Regular Rhythm, Normal S1, Normal S2, No murmurs Abdomen: Bowel Sounds Present, Soft, Non Tender, Non-Distended Extremities: No edema, No Calf Tenderness Psych/Mental Status: Normal Affect, Appropriate Laboratory Results 05/19/20 12:50: WBC 10.4, RBC 3.44 L, Hgb 10.2 L, Hct 33.3 L, MCV 96.8, MCH 29.7, MCHC 30.6 L, RDW Std Deviation 47.8 H, RDW Coeff of Isai 13.4, Plt Count 253, MPV 8.2, Immature Gran % (Auto) 0.300, Neut % (Auto) 77.1 H, Lymph % (Auto) 15.5 L, [place] % (Auto) 6.2, Eos % (Auto) 0.5, Baso % (Auto) 0.4, Absolute Neuts (auto) 8.0 H, Absolute Lymphs (auto) 1.60, Nucleated RBC % 0 05/19/20 12:50: Sodium 139, Potassium 3.9, Chloride 102, Carbon Dioxide 34.0 H, Anion Gap 3 L, BUN 12, Creatinine 0.65, Estim Creat Clear Calc 44.54, Est GFR (MDRD) Af Amer 116, Est GFR (MDRD) Non-Af 96, BUN/Creatinine Ratio 18.4, Glucose 99, Calcium 9.1 Current Medications Acetaminophen (Acetaminophen 325 Mg Tablet) 650 mg PO Q6H PRN PRN PRN Reason: Pain Score 1-10 Last Admin: 05/19/20 08:00 Dose: 650 mg Documented by: Hydrocodone Bitart/Acetaminophen (Hydrocodone Bitartrate/Apap 5/325 Tablet) 2 tablet PO Q6H PRN PRN PRN Reason: Pain Score 1-5 Last Admin: 05/18/20 14:26 Dose: 2 tablet Documented by: Albuterol Sulfate (Albuterol 2.5 Mg/3 Ml Vial.Neb.) 2.5 mg INHALATION Q6HWA.RT TIANA Belladonna Alkaloids/Opium (Opium/Belladonna Alkaloids 60 Mg/15 Mg Suppository) 60 mg RC Q6H PRN PRN PRN Reason: groin pain Cephalexin (Cephalexin 500 Mg Capsule) 500 mg PO Q12 [facility] Last Admin: 05/19/20 09:17 Dose: 500 mg Documented by: Docusate Sodium (Docusate Sodium 100 Mg Capsule) 100 mg PO BID [facility] Last Admin: 05/19/20 09:17 Dose: 100 mg Documented by: Enoxaparin Sodium (Enoxaparin 40 Mg/0.4 Ml Syringe) 40 mg SC DAILY [facility] Last Admin: 05/19/20 09:16 Dose: 40 mg Documented by: Sodium Chloride () 250 mls @ 15 mls/hr IV .[id number] PRN PRN Reason: Saline Flush Dextrose/Lactated Ringer's () 1,000 mls @ 100 mls/hr IV .Q10H [facility] Last Infusion: 05/19/20 12:55 Dose: 100 mls/hr Documented by: Pantoprazole Sodium 40 mg/ (Sodium Chloride) 110 mls @ 330 mls/hr IV Q12 [facility] Last Infusion: 05/19/20 09:58 Dose: Infused Documented by: Ketorolac Tromethamine (Ketorolac 15 Mg/Ml Vial) 15 mg IV Q6H PRN PRN PRN Reason: headache/pain Stop: 05/24/20 13:06 Losartan Potassium (Losartan Potassium 100 Mg Tablet) 100 mg PO DAILY [facility] Last Admin: 05/19/20 08:07 Dose: 100 mg Documented by: Meloxicam (Meloxicam 15 Mg Tablet) 15 mg PO DAILY [facility] Last Admin: 05/19/20 09:17 Dose: 15 mg Documented by: Menthol (Menthol 226.8 Gm Jar) 1 applic TP BID PRN PRN PRN Reason: Pain 1-10 Morphine Sulfate (Morphine 4 Mg/Ml Syringe) 2 mg IV Q4H PRN PRN PRN Reason: Pain Score 6-10 Last Admin: 05/17/20 23:51 Dose: 2 mg Documented by: Ondansetron HCl (Ondansetron 4 Mg/2 Ml Vial) 4 mg IV Q8H PRN PRN PRN Reason: NAUSEA Last Admin: 05/19/20 12:57 Dose: 4 mg Documented by: Sertraline HCl (Sertraline 50 Mg Tablet) 25 mg PO DAILY [facility] Last Admin: 05/19/20 09:16 Dose: 25 mg Documented by: Sodium Chloride (0.9% Saline Lock 10 Ml Syringe) 10 - 40 ml IV UD PRN PRN Reason: SALINE FLUSH Last Admin: 05/19/20 12:57 Dose: 10 ml Documented by: Assessment/Plan All Active Problems (Last Reviewed 10/20/17 @ 13:07 by Tiera Adame) Cystocele (Acute) Vaginal vault prolapse (Acute) Stress incontinence (Acute) Migraine (Acute) SUTTON (dyspnea on exertion) (Acute) History of hysterectomy (Resolved) History of colonoscopy (Resolved) History of appendectomy (Resolved) Sciatica (Acute) Monoclonal gammopathy of unknown significance (Acute) Vitamin D deficiency (Acute) Benign neoplasm of anal canal (Acute) Calcaneal spur (Acute) Joint pain of leg (Acute) Skin lesion (Acute) S/P laparoscopic assisted vaginal hysterectomy (LAVH) (Acute) 1. Migraine Claimed that this is likely multifactorial due to patient's untreated sleep apnea, caffeine withdrawal and her recent surgery. This is similar to patient's prior migraines and no concern for an acute intracranial process such as a subarachnoid hemorrhage therefore, additional imaging such as CT or MRI are not indicated at this time. Plan: Would utilize ketorolac as needed. Meloxicam will be discontinued during this time. Also encouraged patient to drink some coffee if she is able. I did discuss with Dr. Torres and she is okay with the patient receiving ketorolac. If refractory, then would recommend 10 mg of IV dexamethasone x1 (discussed this option with Dr. Torres, who again is comfortable with patient receiving that) plus as need Phenergan and Benadryl (12.5mg and 50mg IV Q6 hours as needed) Next option would be IV magnesium and DHE +/- neurology consultation. Discussed with nursing and I reinforce that no narcotics should be used for the patient's migraine as it can have a rebound phenomenon. 2. VANESA Has CPAP at home but not currently using. Patient states that she will be following up with her milieu therapist, Dr. Landeros, for further modifications if necessary. 3. Hypertension Blood pressure slightly elevated but not enough to be concerned for causing her headache Continue with losartan Thank for the consult. The hospital service will continue to follow along during this patient's hospitalization. Inpatient E&M: 55811 Init Hosp L2
[2020-05-19] MEDS: Ketorolac 15 MG/ML Vial IV (14:25)
[2020-05-19 15:32] VITALS: BP 150/70; PULSE 64; RESP 16; TEMP 36.8; O2SAT 93
[2020-05-19 15:34] VITALS: RESP 18
[2020-05-19] MEDS: dexAMETHasone 10 MG/ML Vial IV (15:57)
[2020-05-19 21:30] VITALS: BP 148/67; PULSE 74; RESP 16; TEMP 37.5; O2SAT 94
[2020-05-20 03:30] VITALS: BP 152/73; PULSE 54; RESP 16; TEMP 37.2; O2SAT 93
[2020-05-20] MEDS: Dextrose 5%-Lactated Ringers 1,000 ML 100 ML IV (04:26)
[2020-05-20] MEDS: Acetaminophen 325 MG Tablet 650 MG PO (06:54)
[2020-05-20] MEDS: Albuterol 2.5 MG/3 ML VIAL.NEB. INHALATION (07:50)
[2020-05-20 07:51] VITALS: PULSE 84; RESP 20
[2020-05-20 07:53] VITALS: O2SAT 91
[2020-05-20 08:10] VITALS: BP 131/67; PULSE 88; RESP 18; TEMP 36.4; O2SAT 94
[2020-05-20] MEDS: Docusate Sodium 100 MG Capsule PO (08:21)
[2020-05-20] MEDS: Losartan Potassium 100 MG Tablet PO (08:21)
[2020-05-20] MEDS: Enoxaparin 40 MG/0.4 ML Syringe SC (08:21)
[2020-05-20] MEDS: Sertraline 50 MG Tablet 25 MG PO (08:21)
[2020-05-20] MEDS: Cephalexin 500 MG Capsule PO (08:21)
--- NOTE | 2020-05-20 10:30 | CASEMGMT ---
RN CM Face to Face with patient for initial transition planning/care coordination assessment. RN CM introduced self and role at [facility]. Patient lying in bed, alert and oriented. Patient willing to participate in assessment and is able to answer all questions appropriately. Care providers, pharmacy, and demographics verified. Patient wishes to discharge home, denies need for home health at this time. Patient states she has no further needs or concerns at this time. CM to follow for discharge planning needs that may arise. PCP: [facility] Specialists: Brian urologist; Leti label printer [facility] Insurance: [employer] Prescription Benefit: yes Living Will/HPOA: none LNOK: daughter Living Arrangements: Patient lives alone in a single story home with 2 steps and grab bars to enter the home. Patient states she is independent at home. Transportation:self, daughter DME/HHC: Paitent states she has raised toilet, walker, BiPap, and nebulizer at home. Patient denies previous HHC. Disposition Plan: Patient to discharge home with family support and follow-up plans in place. Abbie KOHLI, RN, CM
--- NOTE | 2020-05-20 10:42 | NURSING ---
DR AVILES NOTIFIED OF PT VOID AMOUNT & PVR. NEW ORDERS RECEIVED.
--- NOTE | 2020-05-20 11:43 | NURSING ---
DR AVILES NOTIFIED OF PT VOID 100ML & BLADDER SCAN 22ML. DC ORDER OBTAINED.
--- NOTE | 2020-05-21 08:38 | PCM.PROGNOTE ---
Patient Problems: Active and Suspected Problems (Last Reviewed 05/19/20 @ 13:[address] Mendez Ramos, DO) Cystocele (Acute) Vaginal vault prolapse (Acute) Stress incontinence (Acute) Migraine (Acute) Subjective: The date of this injury is 05/20/2020: Patient was seen and examined today, she does not complain of any headache symptomology this morning, I discussed her migraine history, patient has no preventive medication for migraines and does not have any medications for acute migraines at home-she states she only has had migraines after surgery. At this time patient appears to be stable for discharge - Physical Exam Vitals/I&O's: Vital Signs Temp Pulse Resp BP Pulse Ox 97.5 F L 88 18 131/67 H 94 05/20/20 08:10 05/20/20 08:10 05/20/20 08:10 05/20/20 08:10 05/20/20 08:10 Oxygen Flow Rate (L/min) 2 Oxygen Delivery Method Room Air Weight: 93.2 kg Body Mass Index (BMI) 36.3 Intake and Output for Last 24 Hours 05/19/20 05/20/20 05/21/20 23:59 23:59 23:59 Intake Total 2870.00 / 2870.00 1635.00 / 1635.00 Output Total 1500 / 2550 2275 / 2275 Balance 1370.00 / 320.00 -640.00 / -640.00 General: Alert, Oriented x3, Cooperative HEENT: Atraumatic, PERRLA, EOMI, Normocephalic Oral: Moist Mucosa Neck: Supple, No JVD, Negative Carotid Bruits Lungs: Clear to auscultation, Normal air movement Cardiovascular: Regular rate, Regular Rhythm, Normal S1, Normal S2, No murmurs, PMI Normal, No rub noted Abdomen: Bowel Sounds Present, Soft, Non Tender, Non-Distended Extremities: No clubbing, No cyanosis, No edema, Capillary Refill Less than 3 Seconds Skin: No rashes, No breakdown Musculoskeletal: No Tenderness to Palpation of Joints or Extremities Neurological: Cranial nerves II-XII grossly intact, Neuro grossly intact, Sensory exam intact to light touch and pain Psych/Mental Status: Normal Affect, Appropriate, Alert and oriented to time, place, person, mood and affect Medical Necessity - Tobacco Use Smoking Status: Former smoker Tobacco Use: Non-smoker Assessment/Plan All Active Problems (Last Reviewed 05/19/20 @ 13:[address] Mendez Ramos, DO) Cystocele (Acute) Vaginal vault prolapse (Acute) Stress incontinence (Acute) Migraine (Acute) SUTTON (dyspnea on exertion) (Acute) History of hysterectomy (Resolved) History of colonoscopy (Resolved) History of appendectomy (Resolved) Sciatica (Acute) Monoclonal gammopathy of unknown significance (Acute) Vitamin D deficiency (Acute) Benign neoplasm of anal canal (Acute) Calcaneal spur (Acute) Joint pain of leg (Acute) Skin lesion (Acute) S/P laparoscopic assisted vaginal hysterectomy (LAVH) (Acute) #1 migraine cephalgia-resolved at this time #2 obstructive sleep apnea-noncompliant with outpatient CPAP, patient was instructed yesterday to follow-up with her certified professional ergonomist as an outpatient #3 essential hypertension-patient will continue on her outpatient medications Inpatient E&M: 38016 Subs Hosp L2
== END 2020-05-20 13:33 | disposition home or self-care (01) | DRG 982 ==
LOC: MS3 12:58
PROVIDERS: Anesthesiology; Admitting Provider Urology; PCP Family Medicine; Referring Provider Urology; Visit Provider Internal Medicine
PROC: 0USG7ZZ Reposition Vagina, Via Natural or Artificial Opening (ICD-10-PCS; CPT 57260; principal; 2020-05-17 08:20)
DX: G43.909 Migraine, unspecified, not intractable, without status migrainosus (principal); F15.93 Other stimulant use, unspecified with withdrawal; N99.3 Prolapse of vaginal vault after hysterectomy; N39.3 Stress incontinence (female) (male); Z87.891 Personal history of nicotine dependence; E66.9 Obesity, unspecified; I10 Essential (primary) hypertension; G47.33 Obstructive sleep apnea (adult) (pediatric); J44.9 Chronic obstructive pulmonary disease, unspecified; M19.90 Unspecified osteoarthritis, unspecified site; F32.9 Major depressive disorder, single episode, unspecified; E55.9 Vitamin D deficiency, unspecified; D47.2 Monoclonal gammopathy; Z68.36 Body mass index [BMI] 36.0-36.9, adult
CPT/HCPCS: 36415; 74176; 80048; 80053; 85025; 85027; 93005; 94640; 99251; J7120; A4216; C1758; G0463; J2405

== ENCOUNTER 2020-05-30 15:11 | Outpatient (RCR) | payer MEDICARE, OTHER, SELFPAY ==
[2020-05-17 07:26] VITALS: BMI 36.3
[2020-05-30] MEDS: COVID-19 VACC, MRNA(PFIZER)/PF 30 MCG/0.3 ML SYRINGE IM (14:56)
[2020-06-20] MEDS: COVID-19 VACC, MRNA(PFIZER)/PF 30 MCG/0.3 ML SYRINGE IM (14:18)
== END 2020-09-03 23:59 ==
LOC: IMMUN 15:11
PROVIDERS: PCP Family Medicine; Referring Provider Family Medicine; Visit Provider Family Medicine
DX: Z23 Encounter for immunization (principal)
CPT/HCPCS: 0001A; 0002A; 91300

== ENCOUNTER → 2020-06-20 13:31 | Outpatient (CLI) | payer MEDICARE, OTHER, SELFPAY ==
[2020-05-17 07:26] VITALS: BMI 36.3
[2020-06-20 15:25] LABS: Absolute Lymphocyte Count 2.32 X10^3/uL (0.83-4.51); Absolute Neutrophil Count 6.2 X10^3/uL (2.0-7.7); Basophil# 0.11 X10^3/uL; Basophil% 1.1 % (0-1); Eosinophil# 0.52 X10^3/uL; Eosinophils% 5.2 % (0-5); Hematocrit 36.9 % (37-47); Hemoglobin 11.9 g/dL (12.0-15.0); Lymphocyte # 2.32 X10^3/ul (4.0); Lymphocyte % 23.1 % (19-41); Mean Corp Hgb Conc 32.2 g/dL (32-36); Mean Corpuscular Hgb 30.5 pg (27.0-32.0); Mean Corpuscular Volume 94.6 fL (81-99); Mean Platelet Vol. 8.6 fl (6.2-12.0); Monocyte# 0.84 X10^3/uL; Monocyte% 8.4 % (0-10); NRBC Flagged by Analyzer 0 % (0-5); Neutrophil % 61.8 % (47-70); Platelet Count 350 K/mm3 (150-450); RBC Distribution Width SD 47.8 fl (35.1-43.9)
[2020-06-20 15:50] LABS: ALB/GLOB Ratio 0.8 RATIO (0.9-2.4); AST(SGOT) 16 U/L (15-37); Alanine Aminotransfer ALT/SGPT 19 U/L (13-56); Albumin, Serum 3.8 g/dL (3.2-5.0); Alkaline Phosphatase 66 U/L (45-117); Anion Gap 6 (5-15); BUN 14 mg/dL (7-18); BUN/Creat Ratio 17.2 RATIO (10-20); Calcium,Total 9.5 mg/dL (8.5-10.1); Chloride 102 mmol/L (98-107); Creatinine, Serum 0.81 mg/dL (0.55-1.02); EST Glomerular Filtration Rate 75 mL/min (>60); Est Glom Filt Rate - Afr Amer 90 mL/min (>60); Globulin 4.5 g/dL (2.2-4.2); Glucose 90 mg/dL (74-106); LDH 151 U/L (84-246); Potassium 4.2 mmol/L (3.5-5.1); Protein, Total 8.3 g/dL (6.4-8.2); Sodium Level 137 mmol/L (136-145); Thyroid Stim Hormone (TSH) 2.72 uIU/mL (0.358-3.74)
[2020-06-25 14:09] LABS: PROEL- A/G Ratio 0.9 (0.7-1.7); PROEL- Albumin 3.7 g/dL (2.9-4.4); PROEL- Alpha-1 Globulin 0.3 g/dL (0.0-0.4); PROEL- Gamma Globulin 1.6 g/dL (0.4-1.8); PROEL- Globulin, Total 3.9 g/dL (2.2-3.9); PROEL- TOTAL PROTEIN 7.6 g/dL (6.0-8.5); PROELU- Albumin, Urine 27.4 % (.); PROELU- Alpha-1-Globulin,Ur 0.6 % (.); PROELU- Beta Globulin, Ur 31.6 % (.); PROELU- Gamma Globulin, Ur 33.5 % (.); Total Protein, Ur 10.3 mg/dL (Not Estab.)
== END ==
PROVIDERS: PCP Family Medicine; Referring Provider Family Medicine; Visit Provider Family Medicine
DX: D47.2 Monoclonal gammopathy (principal); D64.9 Anemia, unspecified; Z51.81 Encounter for therapeutic drug level monitoring
CPT/HCPCS: 36415; 80053; 83615; 84165; 84166; 84439; 84443; 85025

== ENCOUNTER → 2021-10-20 | Outpatient (CLI) | payer MEDICARE, OTHER, SELFPAY ==
[2021-10-20 15:16] LABS: Absolute Lymphocyte Count 2.44 X10^3/uL (0.83-4.51); Absolute Neutrophil Count 6.4 X10^3/uL (2.0-7.7); Basophil# 0.09 X10^3/uL; Basophil% 0.9 % (0-1); Eosinophils% 5.8 % (0-5); Hematocrit 39.4 % (37-47); Lymphocyte # 2.44 X10^3/ul (0.83-4.51); Lymphocyte % 23.6 % (19-41); Mean Corpuscular Hgb 30.7 pg (27.0-32.0); Mean Corpuscular Volume 92.9 fL (81-99); Mean Platelet Vol. 8.7 fl (6.2-12.0); Monocyte# 0.82 X10^3/uL; Monocyte% 7.9 % (0-10); NRBC Flagged by Analyzer 0 % (0-5); Neutrophil # 6.36 X10^3/uL (2.7-7.7); Neutrophil % 61.5 % (47-70); Platelet Count 400 K/mm3 (150-450); RBC Distribution Width CV 14.5 % (11.6-14.6); RBC Distribution Width SD 49.1 fl (35.1-43.9); Red Blood Count 4.24 M/mm3 (4.2-5.4); White Blood Count 10.3 K/mm3 (4.4-11.0)
[2021-10-20 18:34] LABS: ALB/GLOB Ratio 0.8 RATIO (0.9-2.4); AST(SGOT) 19 U/L (15-37); Alanine Aminotransfer ALT/SGPT 25 U/L (13-56); Albumin, Serum 3.7 g/dL (3.2-5.0); Alkaline Phosphatase 60 U/L (45-117); Anion Gap 7 (5-15); BUN 21 mg/dL (7-18); BUN/Creat Ratio 24.5 RATIO (10-20); Chloride 101 mmol/L (98-107); Cholesterol 168 mg/dL (200); Creatinine, Serum 0.86 mg/dL (0.55-1.02); EST Glomerular Filtration Rate 70 mL/min (>60); Est Glom Filt Rate - Afr Amer 84 mL/min (>60); Globulin 4.5 g/dL (2.2-4.2); Glucose 86 mg/dL (74-106); High Density Lipoprotein 59 mg/dL; LDH 234 U/L (84-246); Potassium 4.2 mmol/L (3.5-5.1); Protein, Total 8.2 g/dL (6.4-8.2); Sodium Level 136 mmol/L (136-145); Triglycerides 119 mg/dL; Very Low Density Lipoprotein 24 mg/dL (5-40)
[2021-10-23 15:08] LABS: PROEL- A/G Ratio 0.9 (0.7-1.7); PROEL- Albumin 3.7 g/dL (2.9-4.4); PROEL- Alpha-1 Globulin 0.3 g/dL (0.0-0.4); PROEL- Beta Globulin 1.1 g/dL (0.7-1.3); PROEL- Gamma Globulin 1.7 g/dL (0.4-1.8); PROEL- TOTAL PROTEIN 7.7 g/dL (6.0-8.5); PROELU- Albumin, Urine 28.7 % (.); PROELU- Alpha-1-Globulin,Ur 3.8 % (.); PROELU- Alpha-2-Globulin,Ur 17.9 % (.); PROELU- Beta Globulin, Ur 35.5 % (.); PROELU- Gamma Globulin, Ur 14.2 % (.); Total Protein, Ur 8.8 mg/dL (Not Estab.)
== END | disposition home or self-care (01) ==
PROVIDERS: PCP Family Medicine; Referring Provider Family Medicine; Visit Provider Family Medicine
DX: D47.2 Monoclonal gammopathy (principal); D64.9 Anemia, unspecified; E78.5 Hyperlipidemia, unspecified; Z51.81 Encounter for therapeutic drug level monitoring
CPT/HCPCS: 36415; 80053; 80061; 83615; 84165; 84166; 85025

== ENCOUNTER → 2021-10-27 | Outpatient (CLI) | payer MEDICARE, OTHER, SELFPAY ==
--- NOTE | 2021-10-27 12:31 | BI_ITS ---
MAMMOGRAPHY - BILATERAL SCREENING 3-D TOMOSYNTHESIS REASON FOR EXAM: Female, 71 years old. Routine screening PERTINENT HISTORY: Aunt with breast cancer.. TECHNIQUE: 2-D mammograms and 3-D Tomosynthesis of the breast (s) were performed. CAD was performed. COMPARISON: 04/19/2020 FINDINGS: The breast composition is almost entirely fat. Scattered benign calcifications are seen. No dense spiculated masses or suspicious microcalcifications are identified. No architectural distortion is identified. There is no skin thickening or retraction. There has been no significant change since the prior study. BI/SCRN MAMM (CAD)W/ALESSIO BILAT IMPRESSION: No mammographic signs of malignancy. Routine yearly mammograms recommended. ASSESSMENT CATEGORY: BIRADS Category 1: Negative. A letter regarding these results will be sent to the patient by the facility within 30 days. FOLLOW UP RECOMMENDATION: Yearly follow up mammogram recommended. (A) Approximately 10% of breast cancers are not detected by mammography. A normal mammogram should not delay biopsy of a clinically suspicious abnormality. Electronically Signed: Jone hCen MD at 15:33 EDT ,
== END | disposition home or self-care (01) ==
LOC: OPBI 12:29
PROVIDERS: PCP Family Medicine; Visit Provider Family Medicine
DX: Z12.31 Encounter for screening mammogram for malignant neoplasm of breast (principal)
CPT/HCPCS: 77063; 77067

== ENCOUNTER → 2022-04-08 | Outpatient (CLI) | payer MEDICARE, OTHER, SELFPAY ==
[2022-04-08 15:45] LABS: Absolute Lymphocyte Count 2.23 X10^3/uL (0.83-4.51); Basophil# 0.11 X10^3/uL; Basophil% 1.1 % (0-1); Eosinophils% 4.1 % (0-5); Hematocrit 38.1 % (37-47); Hemoglobin 12.2 g/dL (12.0-15.0); Lymphocyte # 2.23 X10^3/ul (0.83-4.51); Mean Corpuscular Hgb 29.8 pg (27.0-32.0); Mean Corpuscular Volume 92.9 fL (81-99); Monocyte# 0.85 X10^3/uL; Monocyte% 8.8 % (0-10); NRBC Flagged by Analyzer 0 % (0-5); Neutrophil # 6.02 X10^3/uL (2.7-7.7); Neutrophil % 62.3 % (47-70); Platelet Count 415 K/mm3 (150-450); RBC Distribution Width CV 14.5 % (11.6-14.6); RBC Distribution Width SD 49.3 fl (35.1-43.9); White Blood Count 9.7 K/mm3 (4.4-11.0)
[2022-04-08 15:58] LABS: AST(SGOT) 14 U/L (15-37); Alanine Aminotransfer ALT/SGPT 21 U/L (13-56); Albumin, Serum 3.9 g/dL (3.2-5.0); Alkaline Phosphatase 62 U/L (45-117); Anion Gap 5 (5-15); BUN 19 mg/dL (7-18); BUN/Creat Ratio 20.9 RATIO (10-20); Calcium,Total 10.1 mg/dL (8.5-10.1); Chloride 102 mmol/L (98-107); Creatinine, Serum 0.91 mg/dL (0.55-1.02); EST Glomerular Filtration Rate 65 mL/min (>60); Est Glom Filt Rate - Afr Amer 79 mL/min (>60); Globulin 3.9 g/dL (2.2-4.2); Glucose 86 mg/dL (74-106); LDH 158 U/L (84-246); Potassium 4.3 mmol/L (3.5-5.1); Protein, Total 7.8 g/dL (6.4-8.2); Sodium Level 140 mmol/L (136-145)
[2022-04-13 14:08] LABS: PROEL- Albumin 3.8 g/dL (2.9-4.4); PROEL- Alpha-1 Globulin 0.3 g/dL (0.0-0.4); PROEL- Gamma Globulin 1.5 g/dL (0.4-1.8); PROEL- Globulin, Total 3.8 g/dL (2.2-3.9); PROEL- TOTAL PROTEIN 7.6 g/dL (6.0-8.5); PROELU- Albumin, Urine 41.6 % (.); PROELU- Alpha-2-Globulin,Ur 16.5 % (.); PROELU- Beta Globulin, Ur 30.3 % (.); PROELU- Gamma Globulin, Ur 8.7 % (.); Total Protein, Ur 11.2 mg/dL (Not Estab.)
== END | disposition home or self-care (01) ==
LOC: MTLAB 12:51
PROVIDERS: PCP Family Medicine; Referring Provider Family Medicine; Visit Provider Family Medicine
DX: D47.2 Monoclonal gammopathy (principal); D64.9 Anemia, unspecified; Z51.81 Encounter for therapeutic drug level monitoring
CPT/HCPCS: 36415; 80053; 83615; 84165; 84166; 85025

== ENCOUNTER → 2022-09-14 | Outpatient (CLI) | payer MEDICARE, OTHER, SELFPAY ==
--- NOTE | 2022-09-14 13:06 | CT_ITS ---
EXAM: CT CHEST, LUNG CANCER SCREENING WITHOUT INTRAVENOUS CONTRAST CLINICAL INDICATION: PERSONAL HISTROY IF NICOTINE DEPENDENCE TECHNIQUE: Helically acquired images were obtained of the chest without intravenous contrast using low dose (LDCT) lung cancer screening protocol. This CT exam was performed using one or more of the following dose reduction techniques: automated exposure control, adjustment of the mA and/or kV according to patient size, and/or use of iterative reconstruction technique. COMPARISON: 08/10/2019 FINDINGS: LUNGS AND PLEURAL SPACES: There are minimal emphysematous changes in the lung apices. No mass. No pleural effusion or thickening. No pneumothorax. HEART: Unremarkable. Heart size is normal. No pericardial effusion. No significant coronary artery calcifications. MEDIASTINUM: Unremarkable. No mediastinal or hilar adenopathy. Esophagus is unremarkable. No hiatal hernia. THYROID: Unremarkable. No thyroid lesions. BONES/JOINTS: Unremarkable. No suspicious lytic or blastic abnormality. VASCULATURE: Unremarkable. Thoracic aorta is non-dilated. LYMPH NODES: Unremarkable. No enlarged lymph nodes. CT/Low Dose CT Lung Screening IMPRESSION: No acute pulmonary abnormality. There are minimal emphysematous changes in the lung apices. Lung-RADS score: 1 - Recommend continued annual screening with a low-dose CT (LDCT) in 12 months. Electronically Signed: Arash Goff MD at 20:49 EDT ,
== END | disposition home or self-care (01) ==
LOC: CT 13:05
PROVIDERS: PCP Family Medicine; Referring Provider Internal Medicine Pulmonary Disease; Visit Provider Internal Medicine Pulmonary Disease
DX: Z12.2 Encounter for screening for malignant neoplasm of respiratory organs (principal); Z87.891 Personal history of nicotine dependence
CPT/HCPCS: 71271

== ENCOUNTER → 2022-09-17 | Outpatient (CLI) | payer MEDICARE, OTHER, SELFPAY ==
--- NOTE | 2022-09-17 10:50 | RAD_ITS ---
STUDY: XR Knee Complete 4 Views or More 09/18/2022 4:41 PM REASON FOR EXAM: Female, 72 years old. PAIN TECHNIQUE: XR Knee Complete 4 Views or More RIGHT COMPARISON: None FINDINGS: Normal visualized distal femur. Normal visualized proximal tibia and fibula. Normal proximal tibiofibular articulation. There is severe degenerative arthrosis of the medial femorotibial compartment with severe joint space narrowing. There is mild degenerative arthrosis of the lateral femorotibial compartment. There is severe degenerative arthrosis of the patellofemoral articulation. There is a soft tissue prominence in the suprapatellar region suggesting a small volume joint effusion. The soft tissue structures are unremarkable. RAD/Knee 4 or More Views IMPRESSION: Degenerative arthrosis. There is a soft tissue prominence in the suprapatellar region suggesting a small volume joint effusion. Electronically Signed: Karlos Howard MD at 16:45 EDT ,
--- NOTE | 2022-09-17 11:00 | RAD_ITS ---
STUDY: XR Knee Complete 4 Views or More 09/18/2022 4:41 PM REASON FOR EXAM: Female, 72 years old. PAIN TECHNIQUE: XR Knee Complete 4 Views or More LEFT COMPARISON: 01.06.18 FINDINGS: Normal visualized distal femur. Normal visualized proximal tibia and fibula. Normal proximal tibiofibular articulation. There is severe degenerative arthrosis of the medial femorotibial compartment with severe joint space narrowing. There is mild degenerative arthrosis of the lateral femorotibial compartment. There is severe degenerative arthrosis of the patellofemoral articulation. The soft tissue structures are unremarkable. RAD/Knee 4 or More Views IMPRESSION: Degenerative arthrosis. This is worse. Electronically Signed: Karlos Howard MD at 16:43 EDT ,
== END | disposition home or self-care (01) ==
LOC: MTRAD 10:48
PROVIDERS: PCP Family Medicine; Referring Provider Family Medicine; Visit Provider Family Medicine
DX: M25.561 Pain in right knee (principal); M25.562 Pain in left knee; M19.90 Unspecified osteoarthritis, unspecified site
CPT/HCPCS: 73564

== ENCOUNTER → 2022-11-02 | Outpatient (CLI) | payer MEDICARE, OTHER, SELFPAY ==
--- NOTE | 2022-11-02 14:51 | BI_ITS ---
MAMMOGRAPHY - BILATERAL SCREENING REASON FOR EXAM: Female, 72 years old. Routine annual screening examination. PERTINENT HISTORY: Aunt with breast cancer. TECHNIQUE: Digital bilateral breast alessio (3D mammographic acquisition) in the CC and MLO projections. 2-D mediolateral oblique (MLO) and craniocaudad (CC) views of both breasts were obtained. CAD: Full Field Digital Mammography with Computer Added Detection was performed. COMPARISON: Comparison is made with prior study October 27, 2021 and April 19, 2020. FINDINGS: Breast Composition: The breasts are almost entirely fatty. There are no dominant masses or suspicious calcifications. Stable fat-containing bilateral axillary lymph nodes. No other significant abnormalities are identified. There has been no significant change since the prior study. BI/SCRN MAMM (CAD)W/ALESSIO BILAT IMPRESSION: Stable bilateral screening mammogram. Yearly follow-up mammogram recommended. (A) ASSESSMENT CATEGORY: BIRADS Category 2: Benign. A letter regarding these results will be sent to the patient by the facility within 30 days. Approximately 10% of breast cancers are not detected by mammography. A normal mammogram should not delay biopsy of a clinically suspicious abnormality. [id number] Electronically Signed: Grzegorz Romano MD at 10:51 EDT ,
== END | disposition home or self-care (01) ==
LOC: OPBI 14:49
PROVIDERS: PCP Family Medicine; Referring Provider Family Medicine; Visit Provider Family Medicine
DX: Z12.31 Encounter for screening mammogram for malignant neoplasm of breast (principal); Z80.3 Family history of malignant neoplasm of breast
CPT/HCPCS: 77063; 77067

== ENCOUNTER → 2023-08-18 | Outpatient (CLI) | payer MEDICARE, OTHER, SELFPAY ==
[2023-08-18 15:11] LABS: Absolute Lymphocyte Count 2.77 X10^3/uL (0.83-4.51); Absolute Neutrophil Count 6.5 X10^3/uL (2.0-7.7); Basophil# 0.11 X10^3/uL; Eosinophil# 1.16 X10^3/uL; Eosinophils% 10.1 % (0-5); Hematocrit 40.9 % (37-47); Hemoglobin 12.9 g/dL (12.0-15.0); Lymphocyte # 2.77 X10^3/ul (0.83-4.51); Lymphocyte % 24.1 % (19-41); Mean Corp Hgb Conc 31.5 g/dL (32-36); Mean Corpuscular Hgb 28.9 pg (27.0-32.0); Mean Corpuscular Volume 91.5 fL (81-99); Mean Platelet Vol. 8.9 fl (6.2-12.0); Monocyte% 7.8 % (0-10); NRBC Flagged by Analyzer 0 % (0-5); Neutrophil # 6.48 X10^3/uL (2.7-7.7); Neutrophil % 56.6 % (47-70); Platelet Count 422 K/mm3 (150-450); RBC Distribution Width CV 14.3 % (11.6-14.6); RBC Distribution Width SD 48.1 fl (35.1-43.9); Red Blood Count 4.47 M/mm3 (4.2-5.4); White Blood Count 11.5 K/mm3 (4.4-11.0)
[2023-08-18 16:34] LABS: AST(SGOT) 17 U/L (15-37); Alanine Aminotransfer ALT/SGPT 19 U/L (13-56); Alkaline Phosphatase 69 U/L (45-117); Anion Gap 8 (5-15); BUN 16 mg/dL (7-18); BUN/Creat Ratio 19.2 RATIO (10-20); Calcium,Total 10.4 mg/dL (8.5-10.1); Chloride 105 mmol/L (98-107); Cholesterol 169 mg/dL (200); Creatinine, Serum 0.83 mg/dL (0.55-1.02); EST Glomerular Filtration Rate 72 mL/min (>60); Est Glom Filt Rate - Afr Amer 87 mL/min (>60); Globulin 4.2 g/dL (2.2-4.2); Glucose 82 mg/dL (74-106); High Density Lipoprotein 58 mg/dL; LDH 188 U/L (84-246); Potassium 3.7 mmol/L (3.5-5.1); Protein, Total 8.2 g/dL (6.4-8.2); Sodium Level 138 mmol/L (136-145); Triglycerides 127 mg/dL; Very Low Density Lipoprotein 25 mg/dL (5-40)
[2023-08-24 14:08] LABS: PROEL- Albumin 3.7 g/dL (2.9-4.4); PROEL- Alpha-1 Globulin 0.3 g/dL (0.0-0.4); PROEL- Gamma Globulin 1.3 g/dL (0.4-1.8); PROEL- Globulin, Total 3.6 g/dL (2.2-3.9); PROEL- TOTAL PROTEIN 7.3 g/dL (6.0-8.5); PROEL-M-Spike 0.6 g/dL (Not Observed); PROELU- Albumin, Urine 37.8 % (.); PROELU- Alpha-1-Globulin,Ur 2.9 % (.); PROELU- Alpha-2-Globulin,Ur 15.3 % (.); PROELU- Beta Globulin, Ur 23.8 % (.); PROELU- Gamma Globulin, Ur 20.2 % (.); Total Protein, Ur 14.5 mg/dL (Not Estab.)
== END | disposition home or self-care (01) ==
LOC: BFHLAB 13:39
PROVIDERS: PCP Family Medicine; Referring Provider Family Medicine; Visit Provider Family Medicine
DX: D47.2 Monoclonal gammopathy (principal); D64.9 Anemia, unspecified; E78.5 Hyperlipidemia, unspecified; Z51.81 Encounter for therapeutic drug level monitoring
CPT/HCPCS: 36415; 80053; 80061; 83615; 84165; 84166; 85025

== ENCOUNTER → 2023-09-01 | Outpatient (CLI) | payer MEDICARE, OTHER, SELFPAY ==
[2023-09-01 15:39] LABS: Vitamin D,25 Hydroxy 102.6 ng/mL
== END | disposition home or self-care (01) ==
LOC: BFHLAB 11:31
PROVIDERS: PCP Family Medicine; Referring Provider Family Medicine; Visit Provider Family Medicine
DX: E55.9 Vitamin D deficiency, unspecified (principal)
CPT/HCPCS: 36415; 82306

== ENCOUNTER → 2023-09-03 | Outpatient (CLI) | payer MEDICARE, OTHER, SELFPAY ==
--- NOTE | 2023-09-03 17:53 | CT_ITS ---
EXAM: CT CHEST WITHOUT INTRAVENOUS CONTRAST CLINICAL INDICATION: NICOTINE DEP TECHNIQUE: Helically acquired images were obtained of the chest without intravenous contrast. This CT exam was performed using one or more of the following dose reduction techniques: automated exposure control, adjustment of the mA and/or kV according to patient size, and/or use of iterative reconstruction technique. RADIATION DOSE: CTDIvol = 18.78 mGy, DLP = 628.90 mGy-cmContrast: COMPARISON: September 14, 2022, November 03, 2018 FINDINGS: LUNGS AND PLEURAL SPACES: Multiple small blebs or bullae at the lung apices. Possibly tiny 3.5 mm nodule or vessel left lateral lung base periphery similar to 05/16/2022 and November 03, 2018.. No pleural effusion or thickening. No pneumothorax. HEART: Slight pericardial effusion. Moderate calcification and proximal left anterior descending coronary artery, mild calcification in right and circumflex coronary arteries. Normal heart size. Mild fluid in the superior pericardial recesses. MEDIASTINUM: Unremarkable. No mediastinal or hilar adenopathy. Esophagus is unremarkable. No hiatal hernia. THYROID: Unremarkable. No thyroid lesions. BONES/JOINTS: Multilevel anterior spondylosis and ligamentous ossifications at mid to lower thoracic levels. No suspicious lytic or blastic abnormality. VASCULATURE: Mild peripheral calcification of the aorta, no aneurysm or dissection. ADRENALS: UPPER ABDOMEN: Adrenals, partially included liver and spleen distal pancreas are without obvious acute abnormality. The region of the gallbladder is not included. CT/Chest without Contrast IMPRESSION: 1. Stable chest. 2. Mild COPD. Coronary artery calcifications. 3. ACR Lung CT Screening Reporting And Data System (Lung-RADS) score: 1 - Recommend continued annual screening with a low-dose CT (LDCT) in 12 months. Electronically Signed: Zoila Cote MD at 7:57 EDT ,
== END | disposition home or self-care (01) ==
LOC: CT 17:52
PROVIDERS: PCP Family Medicine; Referring Provider Internal Medicine Pulmonary Disease; Visit Provider Internal Medicine Pulmonary Disease
DX: Z87.891 Personal history of nicotine dependence (principal)
CPT/HCPCS: 71250

== ENCOUNTER → 2023-10-11 | Outpatient (CLI) | payer MEDICARE, OTHER, SELFPAY ==
--- NOTE | 2023-10-11 12:44 | RAD_ITS ---
STUDY: X-RAY - CERVICAL SPINE REASON FOR EXAM: Female, 73 years old. NECK PAIN TECHNIQUE: 5 view(s) of the cervical spine were obtained. COMPARISON: None FINDINGS: Normal anterior atlantoaxial articulation. Normal odontoid process. Normal cervical lordosis. 2 mm retrolisthesis of C4 on C5 and C5 on C6.. There is multi-level endplate spondylosis. There is multi-level degenerative disc disease with multilevel disc space narrowing. Normal visualized intervertebral neuroforamina. The soft tissue structures are unremarkable. RAD/Cerv Spine 4 or 5 Views IMPRESSION: Degenerative disc disease with retrolisthesis as described above. MRI may be useful. Electronically Signed: Mark Campbell MD at 18:15 EDT ,
== END | disposition home or self-care (01) ==
LOC: MTRAD 12:43
PROVIDERS: PCP Family Medicine; Referring Provider Family Medicine; Visit Provider Family Medicine
DX: M54.2 Cervicalgia (principal)
CPT/HCPCS: 72050

== ENCOUNTER → 2023-12-22 | Outpatient (CLI) | payer MEDICARE, OTHER, SELFPAY ==
--- NOTE | 2023-12-22 10:40 | RAD_ITS ---
EXAM: XR CHEST, 2 VIEWS CLINICAL INDICATION: COUGH, COPD TECHNIQUE: Frontal and lateral views of the chest. COMPARISON: CT chest, 09/03/2023 FINDINGS: LUNGS AND PLEURAL SPACES: Mild pulmonary hyperinflation perhaps secondary to COPD. No definite focal pneumonia. No pneumothorax. No effusion. HEART: No significant abnormality. Cardiac silhouette not enlarged. MEDIASTINUM: Central airways and mediastinal contour are unremarkable. BONES/JOINTS: Lumbar spinal orthopedic hardware partially visualized. Degenerative changes throughout the spine and mild scoliotic curvature. No acute fracture. SOFT TISSUES: No significant abnormality. VASCULATURE: Atherosclerosis. RAD/Chest PA and Lateral IMPRESSION: Mild pulmonary hyperinflation perhaps secondary to COPD. No definite focal pneumonia. Electronically Signed: Gil Almanza DO at 20:03 EDT ,
== END | disposition home or self-care (01) ==
LOC: MTLAB 10:37 → MTRAD 10:38
PROVIDERS: PCP Family Medicine; Referring Provider Internal Medicine Pulmonary Disease; Visit Provider Internal Medicine Pulmonary Disease
DX: J44.9 Chronic obstructive pulmonary disease, unspecified (principal); R05.9 Cough, unspecified
CPT/HCPCS: 71046

== ENCOUNTER 2023-12-23 14:30 | Outpatient (RCR) | payer MEDICARE, OTHER, SELFPAY ==
--- NOTE | 2023-12-03 12:15 | HP.PTEVAL_ITS ---
Patient's Visit Information Visit Information Visit Information: YOBANI BANUELOS is a 73 year old F referred to Physical Therapy by Dr. Ana Winslow DO with a diagnosis of CERVICALGIA. Date of Evaluation: 10/14/23 Physical Therapist: Rocael Reid DPT Visit Plan Frequency: 2x /Week Duration: 4 Weeks Plan: Start with UT stretch, US to L UT and levator scapulae region. Add in mid trap and scapular strengthening as tolerated. Subjective Subjective: Pt. is here today for her initial evaluation with diagnosis of cervicalgia. Pt. reports ~1 month ago she woke up with increased neck pain/stiffness. She reports ~1 month prior to that she looked over her L shoulder and felt a crack with instant pain, but alleviated just as quick. Pt. is now having L sided neck pain and some pain that radiates into her anterior shoulder (the radiation of symptoms seems to be more of a tingling). Pt. denies any myotomal weakness since her initial symptoms. She is able to sleep on her L side, but no her R. Pt. reports having intermittent symptoms. Pt. reports great pain is with L cervical rotation. Pt. is hopeful to decrease her pain in order to get back to all recreational activities without limitations. Pain L cervical spine: Pain Intensity (Out of 10): 0 Pain Intensity Range: 0 and 7 Objective Objective: POSTURE: Pt. has general FH posture. Increased rounded shoulders. Equal shoulder heights. PALPATION: Pt. has tenderness along lateral aspect of L cervical spine near C3- C5 section. No pain with rest of palpation throughout cervical spine. NEURO: pt. has normal sensation throughout BUEs. Normal DTR of BUEs. ROM: CERVICAL SPINE: flexion nil loss NE, ext min loss NE, rotation R min loss Ne, rotation L mod loss increase NW, SB R mod loss increase NW, SB L min loss NE. Pt. has full B shoulder ROM without increase in symptoms. MMT: Pt. has symmetrical 5/5 strength throughout BUEs. No myotomal weakness noted. Special Tests C/S Radiculapathy - Left Upper limb tension test: Negative C/S Radiculapathy - Right Upper limb tension test: Negative C/S Radiculapathy - Left Spurlings: Negative C/S Radiculapathy - Right Spurlings: Negative C/S Radiculapathy - Left Cervical distraction: Negative C/S Radiculapathy - Right Cervical distraction: Negative Sharp Tania: Negative Vertebral Artery Test: Negative Alar Ligament Test: Negative Cervical Sitting: Protrusion - Mechanical Response: No effect Cervical Sitting: Protrusion - Symptoms During Testing: No effect Cervical Sitting: Protrusion - Symptoms After Testing: No effect Cervical Sitting: Retraction - Mechanical Response: No effect Cervical Sitting: Retraction - Symptoms During Testing: Produces Cervical Sitting: Retraction-Extension - Mechanical Response: No effect Cerv Sitting: Retraction-Extension - Symptoms During Testing: Produces Cervical Sitting: Sidebend Right - Mechanical Response: No effect Cervical Sitting: Sidebend Right - Symptoms During Testing: Increases Cervical Sitting: Sidebend Right - Symptoms After Testing: No worse Cervical Sitting: Sidebend Left - Mechanical Response: No effect Cervical Sitting: Sidebend Left - Symptoms During Testing: No effect Cervical Sitting: Sidebend Left - Symptoms After Testing: No effect Cervical Sitting: Rotation Right - Mechanical Response: No effect Cervical Sitting: Rotation Right - Symptoms During Testing: No effect Cervical Sitting: Rotation Right - Symptoms After Testing: No effect Cervical Sitting: Rotation Left - Mechanical Response: No effect Cervical Sitting: Rotation Left - Symptoms During Testing: Increases Cervical Sitting: Rotation Left - Symptoms After Testing: No worse Cervical Sitting: Flexion - Mechanical Response: No effect Cervical Sitting: Flexion - Symptoms During Testing: No effect Cervical Sitting: Flexion - Symptoms After Testing: No effect Balance/Special Test Scores Oswestry Neck Score: 11 Goals Goal 1:: LTG: Pt. to be I with HEP. Goal Time Frame: 4-6 Weeks Goal 2:: LTG: Pt. have full cervical ROM without increase in symptoms. Goal Time Frame: 4-6 Weeks Goal 3:: LTG: Pt. to complete all daily activities without increase in neck or arm pain. Goal Time Frame: 4-6 Weeks Goal 4:: LTG: Pt. to sleep without increase in L sided neck pain. Goal Time Frame: 4-6 Weeks Rehabilitation Potential Physical Therapy Diagnosis: Pt. has signs and symptoms consistent with cervicalgia on the L side. Pt. did have some improvement with US and with UT stretching. Pt. would benefit from PT to address the cervical tightness. It does appear to be more muscular than radicular in nature. Rehabilitation Potential: Good Anticipated Interventions Patient/Client Instruction: Educate patient on: Condition, Plan of Care, Risk Factors and Benefits of Fitness Program For the Purpose of:: To improve decision making, To facilitate caregiver knowledge, To improve self management, To prevent re-injury and To improve ability to perform tasks related to life management Therapeutic Exercise to Include: Strength training, Flexibilty training, Passive ROM, Active ROM and Scapular Strength/Stabilization For the Purpose of:: To decrease pain, To increase ROM, To improve nutrient delivery to tissue, To increase oxygenation perfusion, To improve muscle performance and motor function and To improve ability to perform ADL's For the Purpose of:: To increase flexibility/ROM Ultrasound (thermal/non thermal): Yes For the Purpose of:: To decrease pain, To increase ROM, To improve nutrient delivery to tissue and To increase oxygenation perfusion Text: Thank you for the opportunity to evaluate your patient. For Medicare and Medicare HMO plans, please review the plan of care and approve it. It will need to be FAXED BACK to us at [phone] for Medicare purposes. For Medicare only, by signing this I certify the plan of care. Please let me know if there are questions or concerns regarding this plan of care. Physician Signature: Date:
== END 2023-12-23 19:00 | disposition home or self-care (01) ==
LOC: PT 14:30
PROVIDERS: PCP Family Medicine; Referring Provider Family Medicine; Visit Provider Family Medicine
DX: M54.2 Cervicalgia (principal)
CPT/HCPCS: 97035; 97110; 97140; 97161

== ENCOUNTER → 2024-01-04 | Outpatient (CLI) | payer MEDICARE, OTHER, SELFPAY ==
--- NOTE | 2024-01-04 14:40 | BI_ITS ---
MAMMOGRAPHY - BILATERAL SCREENING REASON FOR EXAM: Female, 73 years old. Routine annual screening examination. PERTINENT HISTORY: Aunt with breast cancer. TECHNIQUE: Digital bilateral breast alessio (3D mammographic acquisition) in the CC and MLO projections. 2-D mediolateral oblique (MLO) and craniocaudad (CC) views of both breasts were obtained. CAD: Full Field Digital Mammography with Computer Added Detection was performed. COMPARISON: Comparison is made with prior study dated November 02, 2022 and October 27, 2021. FINDINGS: Breast Composition: The breasts are almost entirely fatty. There are no dominant masses or suspicious calcifications. Stable fat-containing bilateral axillary lymph nodes. No other significant abnormalities are identified. There has been no significant change since the prior study. BI/SCRN MAMM (CAD)W/ALESSIO BILAT IMPRESSION: Stable bilateral screening mammogram. Yearly follow-up mammogram recommended. (A) ASSESSMENT CATEGORY: BIRADS Category 2: Benign. A letter regarding these results will be sent to the patient by the facility within 30 days. Approximately 10% of breast cancers are not detected by mammography. A normal mammogram should not delay biopsy of a clinically suspicious abnormality. [id number] Electronically Signed: Grzegorz Romano MD at 15:29 EDT ,
== END | disposition home or self-care (01) ==
LOC: OPBI 14:39
PROVIDERS: PCP Family Medicine; Referring Provider Family Medicine; Visit Provider Family Medicine
DX: Z12.31 Encounter for screening mammogram for malignant neoplasm of breast (principal)
CPT/HCPCS: 77063; 77067

== ENCOUNTER → 2024-01-12 | Outpatient (CLI) | payer MEDICARE, OTHER, SELFPAY | END | disposition home or self-care (01) | LOC: MTLAB 09:32 | PROVIDERS: PCP Family Medicine; Referring Provider Family Medicine; Visit Provider Family Medicine | DX: T45.2X1A Poisoning by vitamins, accidental (unintentional), initial encounter (principal); E55.9 Vitamin D deficiency, unspecified | CPT/HCPCS: 36415; 82306 ==

== ENCOUNTER → 2024-04-07 | Outpatient (CLI) | payer MEDICARE, OTHER, SELFPAY ==
[2024-04-07 12:00] LABS: Erythrocyte Sedimentation Rate 19 mm/hr (0-30)
[2024-04-07 12:09] LABS: Absolute Lymphocyte Count 2.56 X10^3/uL (0.83-4.51); Absolute Neutrophil Count 5.4 X10^3/uL (2.0-7.7); Eosinophil# 0.58 X10^3/uL; Eosinophils% 6.1 % (0-5); Hematocrit 40.3 % (37-47); Hemoglobin 12.4 g/dL (12.0-15.0); Lymphocyte # 2.56 X10^3/ul (0.83-4.51); Lymphocyte % 26.8 % (19-41); Mean Corp Hgb Conc 30.8 g/dL (32-36); Mean Corpuscular Hgb 28.4 pg (27.0-32.0); Mean Corpuscular Volume 92.2 fL (81-99); Mean Platelet Vol. 8.6 fl (6.2-12.0); Monocyte# 0.89 X10^3/uL; Monocyte% 9.3 % (0-10); NRBC Flagged by Analyzer 0 % (0-5); Neutrophil # 5.38 X10^3/uL (2.7-7.7); Neutrophil % 56.3 % (47-70); Platelet Count 389 K/mm3 (150-450); RBC Distribution Width SD 50.6 fl (35.1-43.9); Red Blood Count 4.37 M/mm3 (4.2-5.4); White Blood Count 9.6 K/mm3 (4.4-11.0)
[2024-04-07 12:26] LABS: AST(SGOT) 12 U/L (15-37); Alanine Aminotransfer ALT/SGPT 19 U/L (13-56); Albumin, Serum 3.9 g/dL (3.2-5.0); Alkaline Phosphatase 60 U/L (45-117); Anion Gap 4 (5-15); BUN 21 mg/dL (7-18); BUN/Creat Ratio 27.5 RATIO (10-20); CRP 6.88 mg/L (0.0-3.0); Calcium,Total 10.1 mg/dL (8.5-10.1); Chloride 105 mmol/L (98-107); Creatinine, Serum 0.76 mg/dL (0.55-1.02); EST Glomerular Filtration Rate 79 mL/min (>60); Est Glom Filt Rate - Afr Amer 96 mL/min (>60); Globulin 4.1 g/dL (2.2-4.2); Glucose 100 mg/dL (74-106); Potassium 4.2 mmol/L (3.5-5.1); Rheumatoid Factor < 10.0 IU/mL (<15); Sodium Level 138 mmol/L (136-145)
[2024-04-07 12:57] LABS: Hepatitis B Surface Antibody Non-Reactive; Hepatitis B Surface Antigen Non-Reactive (Nonreactive); Hepatitis C Antibody Non-Reactive (Nonreactive)
[2024-04-08 14:08] LABS: CCP IgG Antibodies 2 units (0-19)
[2024-04-10 13:07] LABS: ANTINUCLEAR ANTIBODIES DIRECT Negative (Negative)
== END | disposition home or self-care (01) ==
LOC: MTLAB 09:49
PROVIDERS: PCP Family Medicine; Referring Provider Internal Medicine Rheumatology; Visit Provider Internal Medicine Rheumatology
DX: M06.4 Inflammatory polyarthropathy (principal); M17.0 Bilateral primary osteoarthritis of knee
CPT/HCPCS: 36415; 80053; 85025; 85652; 86038; 86140; 86200; 86431; 86706; 86803; 87340

== ENCOUNTER → 2024-06-27 | Outpatient (CLI) | payer MEDICARE, OTHER, SELFPAY ==
--- NOTE | 2024-06-27 11:22 | RAD_ITS ---
EXAM: XR Abdomen, 1 View CLINICAL INDICATION: ASSESS STOOL BURDEN TECHNIQUE: Frontal supine view of the abdomen/pelvis. COMPARISON: No relevant prior studies available. FINDINGS: GASTROINTESTINAL TRACT: Moderate volume fecal retention in the colon consistent with constipation. No dilation. BONES/JOINTS: Unremarkable. No acute fracture. RAD/Abdomen Single View IMPRESSION: Moderate volume fecal retention in the colon consistent with constipation. Reading Location: [facility]
== END | disposition home or self-care (01) ==
LOC: MTRAD 11:21
PROVIDERS: PCP Family Medicine; Referring Provider Nurse Practitioner Family; Visit Provider Nurse Practitioner Family
DX: R10.10 Upper abdominal pain, unspecified (principal)
CPT/HCPCS: 74018

== ENCOUNTER 2024-08-14 15:00 | Outpatient (RCR) | payer MEDICARE, OTHER, SELFPAY ==
--- NOTE | 2024-06-13 10:44 | HP.PTEVAL_ITS ---
Patient's Visit Information Visit Information Visit Information: YOBANI BANUELOS is a 74 year old F referred to Physical Therapy by DAYAMI PEREZ with a diagnosis of s/p R TKA 05/25/24. Date of Evaluation: 06/13/24 Physical Therapist: Mendez Dennis, JAYET, OCS, CSCS Visit Plan Frequency: 2x /Week Duration: 4-6 Weeks Plan: 2x/week for 4-6 weeks : IE HEP SLR 3x10 daily, HS with OP 12x 2x.day, continued standing ex daily, bike 5 min 3x/day, walk daily and continue ice as needed Treat in clinic with 1. Teach gym based strength program LE, Core, posture adn to I 2. patella mobs, knee ROM flexion, scar massage 3. gait and stair training. Subjective Subjective: R TKA 05/25/24. It went well. Lots of pain prior to and then after surgery. Miserable for a couple days. Had home health for two weeks. Does sitting ex and standing standing ex and ROM. Pain 0-4/10. Icing as needed now. Taking vicodin every 4 hours. No walker or cane anymore but walker at first. No falls. No steps. Lives alone. one step to enter with L. Holding onto wall. Employed, Retired. Takes care of granddaughter when she is healthy and can drive again. Basic ADLs all I and has lip to walk in shower. Hobbies: Yard work, mowing and planting and wants to do that again. Exercise , none but wants to join gym Pain R knee: Pain Intensity (Out of 10): 0 Pain Intensity Range: 0 and 4 Comment: getting up from chair Objective Objective: R knee. TUG 12 seconds AROM 0-113 R and 0-120 L. strength R quad 26# and HS 50# girth 17 at patella on R adn 21 6 inch suprapatellar Walking without AD I today with good balance. trasnfers chair with UE I, steps reciprocal with two railing and lacks FW weight shift onto R and obviously expectedly weaker on R. Bed transfers I. SLR without lag today 2x on R Incision is dry and healed well with moderate scarring more distal the proximal, no signs of excessive redness heat or swelling. Quad is minimally tender R vs L Balance/Special Test Scores Functional Gait Assessment Score: 25 % Disability: 16.6700 WOMAC Total Score: 35 WOMAC Percentatge: 63.5500 Goals Goal 1:: FGA score 27/30 Goal Time Frame: 4-6 Weeks Goal 2:: TUG less than 10 seconds Goal Time Frame: 4-6 Weeks Goal 3:: 0-122 AROM to aid in comfort on steps Goal Time Frame: 4-6 Weeks Goal 4:: Steps up and down 2 flights with one rail I without deviations Goal Time Frame: 4-6 Weeks Goal 5:: womac score less than 15 Goal Time Frame: 4-6 Weeks Goal 6:: Pt feel 95% back to normal activity and I in continued gym strength program Goal Time Frame: 4-6 Weeks Rehabilitation Potential Physical Therapy Diagnosis: stiffness and weakness R LE limiting comfortable fun ction Rehabilitation Potential: Good Anticipated Interventions Patient/Client Instruction: Educate patient on: Condition and Plan of Care For the Purpose of:: To decrease pain, To increase ROM, To improve nutrient delivery to tissue, To improve muscle performance and motor function, To increase tolerance to activity/condition/position, To improve ability of physical actions for home/community/work/leisure and To improve gait and locomotor functions Therapeutic Exercise to Include: Strength training, Balance training, Postural training, Flexibilty training, Passive ROM and Active ROM For the Purpose of:: To decrease pain, To increase ROM, To improve nutrient delivery to tissue, To improve muscle performance and motor function, To increase tolerance to activity/condition/position, To improve ability of physical actions for home/community/work/leisure and To improve gait and locomotor functions Manual Therapy Techniques to Include: Scar massage, Mobilization, Passive ROM and Soft tissue mobilization For the Purpose of:: To decrease pain, To decrease swelling/inflammation, To increase ROM, To improve nutrient delivery to tissue and To improve muscle performance and motor function Cryotherapy (ice pack, ice massage): Yes For the Purpose of:: To decrease swelling/inflammation Text: Thank you for the opportunity to evaluate your patient. For Medicare and Medicare HMO plans, please review the plan of care and approve it. It will need to be FAXED BACK to us at [phone] for Medicare purposes. For Medicare only, by signing this I certify the plan of care. Please let me know if there are questions or concerns regarding this plan of care. Physician Signature: Date:
--- NOTE | 2024-08-14 15:22 | HP.PTDCSUM ---
Discharge Summary D/C summary: It has been my pleasure to treat YOBANI BANUELOS referred by DAYAMI PEREZ, with the diagnosis of s/p R TKA 05/25/24 for a total of 7 visit(s). Discharge Date: 08/14/24 Please see the following information for a summary of their discharge status. Subjective Subjective: having an US due to calf pain intermittently. Otherwisee leg holding her up well. Still doing home exercises at sink. Exercising at home. sleeping well. Avoiding long walks but can walk 100 yards or so. Would like to walk dog to end of street, avoiding full walk as it feels weak. Saw surgeon 2 weeks ago and not agin for a year. Pain R knee: Pain Intensity (Out of 10): 0 Overall Improvement % Improvement: 100 Objective Objective/Function: 0 - 118 AROM Walking without antalgia today. steps reciprocally with one rail without weakness. overall excellent presentation without excessive swelling adn - taya. Goals Goal 1:: FGA score 27/30 Goal Progress: Goal Met Goal 2:: TUG less than 10 seconds Goal Progress: Goal Met Goal 3:: 0-122 AROM to aid in comfort on steps Goal Progress: Progressing Goal 4:: Steps up and down 2 flights with one rail I without deviations Goal Progress: Goal Met Goal 5:: womac score less than 15 Goal Progress: Goal Met Goal 6:: Pt feel 95% back to normal activity and I in continued gym strength program Goal Progress: Goal Met Plan Plan: d/c to HEP D/C Information d/c sentence: If there are questions or concerns regarding this patient's physical therapy, please feel free to call me at [phone]. Thank you for the referral of this patient. Sincerely, Mendez Dennis, DPT, OCS, CSCS Balance/Gait/Functional tests Balance/Special Test Scores Functional Gait Assessment Score: 27 % Disability: 10.0000 TUG Test Time Seconds: 8 Tug Test: <10 sec.=free mobile WOMAC Total Score: 8 WOMAC Percentage: 91.6700 Improvement % Improvement: 100
== END 2024-08-14 19:00 | disposition home or self-care (01) ==
LOC: PT 15:00
PROVIDERS: PCP Family Medicine; Referring Provider Nurse Practitioner Family; Visit Provider Nurse Practitioner Family
DX: M17.0 Bilateral primary osteoarthritis of knee (principal)
CPT/HCPCS: 97110; 97140; 97161; 97164; 97530

== ENCOUNTER → 2024-08-18 | Outpatient (CLI) | payer MEDICARE, OTHER, SELFPAY ==
--- NOTE | 2024-08-18 12:54 | VDLE_ITS ---
Reason For Study Reason For Study: Pain RIGHT LEFT GSV is normal. CFV is compressible, spontaneous, phasic, competent, CFV is compressible, spontaneous, phasic, competent and demonstrates normal augmentation. and demonstrates normal augmentation. FV is compressible, spontaneous, phasic, competent and demonstrates normal augmentation. POP V is compressible, spontaneous, phasic, competent and demonstrates normal augmentation. T/P Trunk is compressible. PTV is compressible. RT PerV is compressible. Procedure This is a venous duplex using B-mode, color flow and spectral Doppler. Exam performed in department. VL/Venous Duplex US, Unilateral Interpretation Summary Deep veins of the right lower extremity are patent and compressible segmentally . There is no evidence of right lower extremity deep vein thrombosis. The right great saphenous vein appears patent a nd compressible segmentally. Ordering Physician: Ana Winslow Referring Physician: Ana Winslow Performed By: Lorraine Mills RVT
== END | disposition home or self-care (01) ==
LOC: CVS 12:52
PROVIDERS: PCP Family Medicine; Referring Provider Family Medicine; Visit Provider Family Medicine
DX: M79.604 Pain in right leg (principal)
CPT/HCPCS: 93971

== ENCOUNTER → 2024-10-23 | Outpatient (CLI) | payer MEDICARE, OTHER, SELFPAY ==
[2024-10-23 12:40] LABS: Hematocrit 39.6 % (37-47); Hemoglobin 12.7 g/dL (12.0-15.0); Immature Granulocytes Count 0.240 X10^3/uL (0.0-0.0); Mean Corp Hgb Conc 32.1 g/dL (32-36); Mean Corpuscular Volume 88.6 fL (81-99); Mean Platelet Vol. 8.7 fl (6.2-12.0); NRBC Flagged by Analyzer 0.2 % (0-5); Platelet Count 461 K/mm3 (150-450); RBC Distribution Width CV 16.0 % (11.6-14.6); RBC Distribution Width SD 51.8 fl (35.1-43.9); Red Blood Count 4.47 M/mm3 (4.2-5.4); White Blood Count 13.3 K/mm3 (4.4-11.0)
[2024-10-23 13:34] LABS: AST(SGOT) 14 U/L (<=31); Alanine Aminotransfer ALT/SGPT 16 U/L (<=34); Albumin, Serum 4.3 g/dL (3.4-4.8); Alkaline Phosphatase 60 U/L (35-104); Anion Gap 12 (5-15); BUN 20 mg/dL (4-19); BUN/Creat Ratio 25.7 RATIO (10-20); Calcium,Total 10.1 mg/dL (7.6-11.0); Carbon Dioxide 28.0 mmol/L (21.0-32.0); Chloride 100 mmol/L (98-108); Cholesterol 170 mg/dL (<=200); Globulin 3.4 g/dL (2.2-4.2); Glucose 87 mg/dL (70-99); Low Density Lipoprotein Calc. 69 mg/dL; Potassium 4.6 mmol/L (3.3-5.1); Triglycerides 90 mg/dL; Very Low Density Lipoprotein 18 mg/dL (5-40); cholesterol:hdl ratio screen 2.06
[2024-10-23 14:17] LABS: LDH 177 U/L (84-246)
--- OUTSIDE RECORDS SUMMARY | 2024-10-23 21:12 | XMS RPT_ITS | CCD ---
Author Organization [facility] Care Team Providers Care Car Body Designer Name Role Phone Unavailable Primary Care Provider Unavailabl e Goldy YORK, Dr. Perez Primary Care Provider [phone] Manish GRAF, Dr. Galloway Attending Provider Manish GRAF, Dr. Galloway Referring Provider Anderson FINANCE ATTORNEY-C, Sharyn Attending Provider Anderson FINANCE ATTORNEY-C, Sharyn Referring Provider MERYL FINANCE ATTORNEY-C, SISSY Attending Provider MERYL FINANCE ATTORNEY-C, SISSY Referring Provider Dr. Ana Winslow DO Primary Care Provider MERYL FINANCE ATTORNEY-C, SISSY Attending Provider MERYL FINANCE ATTORNEY-C, SISSY Referring Provider Dr. Ana Winslow DO Attending Provider Dr. Ana Winslow DO Referring Provider Cordelia GRAF, Dr. Simms Attending Provider [phone] Malys, Ana Referring Unavailable Malys, Ana Primary Care Unavailable Malys, Ana Attending Unavailable Malys, Ana Referring Unavailable Malys, Ana Attending Unavailable Malys, Ana Primary Care Unavailable Sibilia, Justin V Attending Unavailable Sibilia, Justin V Referring Unavailable Malys, Ana Primary Care Unavailable Malys, Ana Referring Unavailable Malys, Ana Primary Care Unavailable Malys, Ana Attending Unavailable Malys, Ana Primary Care Unavailable Malys, Ana Attending Unavailable Malys, Ana Referring Unavailable Laverne Hammond Referring Unavailable Malys, Ana Primary Care Unavailable Laverne Hammond Attending Unavailable Justin Landeros V Attending Unavailable SibiliaJustin V Referring Unavailable Malys, Ana Primary Care Unavailable Malys, Ana Primary Care Unavailable Mendez Storey Attending Unavailable Malys, Ana Referring Unavailable Malys, Ana Primary Care Unavailable SISSY SHETH Attending Unavailable SISSY SHETH Referring Unavailable Malys, Ana Primary Care Unavailable Sharyn Barron Attending Unavailable Sharyn Barron Referring Unavailable Malys, Ana Primary Care Unavailable Malys, Ana Attending Unavailable Malys, Ana Referring Unavailable Allergies Allergy Classification Reported Allergen(s) Allergy Type Date of Onset Reaction(s) Facility (9 sources) Lisinopril Drug Allergy 05-17-[address] [facility] (1 source) Lisinopril Drug Allergy 09-03-2023 [facility] Repository Medications Current Medications Medication Drug Class(es) Dates Sig (Normalized) Sig (Original) acetaminophen 325 mg / HYDROcodone bitartrate 5 mg oral tablet (19 sources) Opioid Agonist Start: 06-09-2016 take 1 tablet by mouth every six hours as needed for pain Hydrocodone-Aceta minophen 1 TABLET tablet Active 1 {tbl} PO EVERY 6 HOURS NEEDED as needed for Pain Score 1-5 May 17, 2020 Start: 06-09-2016 take 1 tablet by raul th every six hours as needed Hydrocodone-Acetaminophen Active 1 TABLE T PO EVERY 6 HOURS NEEDED May 17, 2020 Comment on above: Take 1 tablet by raul th every 6 hours as needed. albuterol 0.83 mg/ml inhalation solution (18 sources) beta2-Adrenergic Agonist Start: take 2.5 mg by inhalation every six hours Albuterol Sulfate 2.5 MG/3 ML solution for nebulization Active 2.5 mg INHALATION EVERY 6 HOURS WHILE AWAKE May 10, 2020 1:00am Start: 04-16-2017 End: 08-16-2017 Albuterol Sulfate (Proair Hf a) 90 mcg/actuation HFA aerosol inhaler Discontinued 2 NMA INHALATION Q4H as needed for shortness of breath or wheezing April 16, 2017 1:00am August 16, 2017 9:52am Start: 04-16-2017 End: 08-16-2017 take 1 puff(s) by inhalation every four hours Albuterol Sulfate (Proair Hfa) 90 mcg/actuation HFA aerosol inhaler Discontinued 2 PUFF INHALATION Q4H April 16, 2017 1:00am August 16, 2017 9:52am amphetamine aspartate 2.5 mg / amphetamine sulfate 2.5 mg / dextroamphetamine saccharate 2.5 mg / dextroamphetamine sulfate 2.5 mg oral tablet (9 sources) Central Nervous System Stimulant Start: 05-10-2020 take 1 tablet by mouth once daily Dextroamphetamine-Amphetamine 10 MG tablet Active 10 mg PO DAILY May 10, 2020 1:00am docusate sodium 100 mg oral capsule (9 sources) Start: 06-19-2016 take 1 capsule by mouth twice daily as needed for constipation Docusate Sodium 100 MG capsule Active 100 mg PO TWICE DAILY NEEDED as needed for Constipation 60 June 19, 2016 12:00am ergocalciferol 1.25 mg oral capsule (9 sources) Provitamin D2 Compound Start: 06-09-2016 Ergocalciferol (Vitamin D2) 50,000 UNIT capsule Active 48369 U PO MO June 09, 2016 12:00am losartan potassium 100 mg oral tablet (18 sources) Angiotensin 2 Receptor Edgard Start: 04-16-2017 take 1 tablet by mouth once daily Losartan (Cozaar) 100 mg tablet Active 100 mg PO daily April 16, 2017 1:00am Start: 06-09-2016 End: 04-16-2017 take 1 tablet by mouth once daily Losartan 25 MG tablet Discontinued 25 mg PO DAILY June 09, 2016 12:00am April 16, 2017 1:44pm meloxicam 15 mg oral tablet (10 sources) Nonsteroidal Anti-inflammatory Drug Start: 06-09-2016 take 1 tablet by mouth once daily Meloxicam 15 MG tablet Active 15 mg PO DAILY June 09, 2016 12:00am Comment on above: Take 1 tablet by mouth once daily. Take with food. Multivit With Min-Folic Acid (6 sources) Start: 06-09-2016 take 0.4 mg by mouth once daily Multivit With Min-Folic Acid Active 0.4 MG PO DAILY June 08, 2016 11:00pm Start: 06-09-2016 take 0.4 mg by mouth once dario y Multivit With Min-Folic Acid Active 0.4 MG PO DAILY June 09, 2016 12:00am Multivit With Min-Folic Acid 0.4 MG tablet (3 sources) Start: 06-09-2016 take 1 tablet by mouth once daily Multivit With Min-Folic Acid 0.4 MG tablet Active 0.4 mg PO DAILY June 09, 2016 12:00am sertraline 25 mg oral tablet (9 sources) Serotonin Reuptake Inhibitor Start: 05-10-2020 take 1 tablet by mouth once daily Sertraline 25 MG tablet Active 25 mg PO DAILY May 10, 2020 1:00am Turmeric-Turmeric Root Extract (9 sources) Start: 06-09-2016 take 1 capsule by mouth once daily Turmeric-Turmeric Root Extract 500 MG capsule Active 500 mg PO DAILY June 09, 2016 12:00am Start: 06-09-2016 take 500 mg by mouth once daily Turmeric-Turmeric Root Extract Active 500 MG PO DAILY June 08, 2016 11:00pm Start: 06-09-2016 take 500 mg by mouth once daily Turmeric-Turmeric Root Extract Active 500 MG PO DAILY June 09, 2016 12:00am vitamin b12 0.5 mg oral tablet (9 sources) Vitamin B12 Start: 05-10-2020 take 1 tablet by mouth once daily Cyanocobalamin (Vitamin B-12) 500 MCG tablet Active 500 ug PO DAILY@0800 May 10, 2020 1:00am Completed/Discontinued Medications Medication Drug Class(es) Dates Sig (Normalized) Sig (Original) cephalexin 500 mg oral capsule (12 sources) Cephalosporin Antibacterial Start: 05-17-2020 End: 09-13-2023 take 1 capsule by mouth every twelve hours Cephalexin 500 mg capsule Discontinued 500 mg PO Q12H 20 September 03, 2023 12:00am September 12, 2023 12:00am September 13, 2023 12:06am cholecalciferol 1.25 mg oral capsule (1 source) Vitamin D Start: 01-04-2016 take 1 capsule by mouth every week cholecalciferol, Vitamin D3, (VITAMIN D3) 50,000 unit cap capsule Indications: Vitamin D deficiency Take 1 capsule by mouth once each week. 12 capsule 4 01/04/2016 Active Comment on above: Take 1 capsule by [facility] once each week. lisinopril 40 mg oral tablet (1 source) Angiotensin Converting Enzyme Inhibitor Start: 09-01-2018 lisinopril (ZESTRIL, PRINIVIL) 40 mg tablet Lisinopril LISINOPRIL 40 MG TABS one tablet a day LISINOPRIL [id number] Tiarra Rangel PAYMENT SPECIALIST-GUN STOCKER 09-01-2018 [facility] ([id number]) [phone] 09/01/2018 Active Comment on above: Lisinopril LISINOPRI L 40 MG TABS one tablet a day LISINOPRIL [id number] Tiarra Rangel PAYMENT SPECIALIST-GUN STOCKER 09-01-2018 [facility] ([id number]) Problems Active Problems Problem Classification Problem Date Documented Date Episodic/Chronic Abdominal pain (1 source) Upper abdominal pain, unspecified; Translations: [Upper abdominal pain, unspecified] Onset: 07-04-2024 Episodic Asthma (9 sources) Asthma; Translations: [Unspecified asthma, uncomplicated] 08-16-2017 Chronic Chronic obstructive pulmonary disease and bronchiectasis (10 sources) Chronic obstructive lung disease; Translations: [Chronic obstructive pulmonary disease, unspecified] Onset: 01-12-2024 08-16-2017 Chronic Esophageal disorders (1 source) Gastroesophageal reflux disease; Translations: [Gastro-esophageal reflux disease without esophagitis] 11-20-2004 Chronic Essential hypertension (10 sources) Hypertensive disorder; Translations: [Essential (primary) hypertension] Onset: 05-26-2016 04-16-2017 Chronic Genitourinary symptoms and ill-defined conditions (9 sources) Genuine stress incontinence; Translations: [Stress incontinence (female) (male)] 05-17-2020 Chronic Headache; including migraine (9 sources) Migraine; Translations: [Migraine, unspecified, not intractable, without status migrainosus] 05-19-2020 Chronic Inflammation; infection of eye (except that caused by tuberculosis or sexually transmitteddisease) (3 sources) Blepharitis of right upper eyelid; Translations: [Unspecified blepharitis right upper eyelid] 09-03-2023 Episodic Mood disorders (10 sources) Depressive disorder; Translations: [Depression] 04-16-2017 Chronic Neoplasms of unspecified nature or uncertain behavior (10 sources) Monoclonal gammopathy of uncertain significance; Translations: [Monoclonal gammopathy] Onset: 01-29-2016 04-16-2017 Chronic Nutritional deficiencies (10 sources) Vitamin D deficiency; Translations: [Vitamin D deficiency, unspecified] Onset: 03-07-2013 04-16-2017 Chronic Osteoarthritis (11 sources) Osteoarthritis; Translations: [Unspecified osteoarthritis, unspecified site] Onset: 08-15-2024 04-16-2017 Chronic Other and unspecified benign neoplasm (9 sources) Benign neoplasm of anal canal; Translations: [Benign neoplasm of anus and anal canal] 04-16-2017 Episodic Other congenital anomalies (9 sources) Congenital ichthyosis of skin; 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, unspecified] 04-16-2017 Chronic Other congenital anomalies (3 sources) Herniated urinary bladder 05-17-2020 Chronic Other connective tissue disease (10 sources) Calcaneal spur; Translations: [Calcaneal spur, unspecified foot] Onset: 12-17-2010 04-16-2017 Episodic Other connective tissue disease (9 sources) Pain in calf; Translations: [Pain in right lower leg] 09-29-2015 Episodic Other connective tissue disease (1 source) Pain in right leg; Translations: [Pain in right leg] Onset: 08-23-2024 Episodic Other lower respiratory disease (9 sources) Dyspnea on exertion; Translations: [Other forms of dyspnea] 09-08-2018 Episodic Other nervous system disorders (10 sources) Carpal tunnel syndrome; Translations: [Carpal tunnel syndrome, unspecified upper limb] 04-16-2017 Chronic Other non-traumatic joint disorders (10 sources) Pain in lower limb; Translations: [Pain in unspecified joint] Onset: 01-15-2006 04-16-2017 Episodic Other nutritional; endocrine; and metabolic disorders (10 sources) Obesity; Translations: [Obesity, unspecified] 08-17-2017 Chronic Other nutritional; endocrine; and metabolic disorders (1 source) Body mass index 40+ - severely obese; Translations: [Morbid (severe) obesity due to excess calories] Onset: 07-27-2016 07-27-2016 Chronic Other skin disorders (9 sources) Skin lesion; Translations: [Disorder of the skin and subcutaneous tissue, unspecified] 04-16-2017 Episodic Prolapse of female genital organs (9 sources) Vaginal vault prolapse; Translations: [Female genital prolapse, unspecified] 05-17-2020 Chronic Residual codes; unclassified (9 sources) Obstructive sleep apnea syndrome; Translations: [Obstructive sleep apnea (adult) (pediatric)] 08-17-2017 Chronic Comment on above: BiPAP 13/9 cmH2O Residual codes; unclassified (9 sources) History of colonoscopy; Translations: [Other specified postprocedural states] 04-16-2017 Episodic Residual codes; unclassified (9 sources) History of vaginal hysterectomy; Translations: [Acquired absence of both cervix and uterus] 05-17-2020 Episodic Rheumatoid arthritis and related disease (1 source) Inflammatory polyarthropathy; Translations: [Inflammatory polyarthropathy] Onset: 04-29-2024 Chronic Screening and history of mental health and substance abuse codes (2 sources) Tobacco use and exposure - finding; Translations: [Personal history of nicotine dependence] Onset: 06-13-2008 06-13-2008 Episodic Substance-related disorders (9 sources) Tobacco dependence in remission; Translations: [Nicotine dependence, unspecified, in remission] 04-16-2017 Chronic Unclassified (9 sources) Mild DJD 04-16-2017 Unclassified (6 sources) Herniated urinary bladder; Translations: [Cystocele] 05-17-2020 Past or Other Problems Problem Classification Problem Date Documented Date Episodic/Chronic Other and unspecified benign neoplasm (1 source) History of polyp of colon; Translations: [Personal history of colonic polyps] Onset: 07-14-2006 07-14-2006 Episodic Other and unspecified benign neoplasm (1 source) Benign neoplasm of rectum and anal canal; Translations: [Benign neoplasm of rectum] Onset: 11-23-2011 11-23-2011 Episodic Other connective tissue disease (1 source) Snapping thumb syndrome; Translations: [Trigger thumb, unspecified thumb] Onset: 12-22-2016 12-22-2016 Episodic Other screening for suspected conditions (not mental disorders or infectious disease) (1 source) Encounter for screening mammogram for malignant neoplasm of breast; Translations: [Encounter for screening mammogram for malignant neoplasm of breast] Onset: 01-25-2024 Episodic Poisoning by other medications and drugs (1 source) Poisoning by vitamins, accidental (unintentional), initial encounter; Translations: [Poisoning by vitamins, accidental (unintentional), initial encounter] Onset: 02-02-2024 Episodic Residual codes; unclassified (1 source) Family history of cancer of colon; Translations: [Family history of malignant neoplasm of digestive organs] Onset: 10-20-2011 10-20-2011 Episodic Residual codes; unclassified (1 source) Family history of malignant neoplasm of gastrointestinal tract; Translations: [Family history of malignant neoplasm of digestive organs] Onset: 11-23-2011 11-23-2011 Episodic Spondylosis; intervertebral disc disorders; other back problems (11 sources) Sciatica; Translations: [Sciatica, unspecified side] Onset: 09-23-2016 04-16-2017 Episodic Results Test Name Value Interpretation Reference Range Facility Venous duplex ultrasound rep ortOrdered By: Mendez Storey on 08-22-2024 US Vein [facility] [address] [place] [address] Venous Duplex US, Unilateral 08/18/24 1302 MR#: [id number] Acct: [id number] Name: AURY BANUELOS Rep #:[id number] : 1950 74 From: Mendez Velez Attending Dr: Dr. Ana Winslow DO atus: REG CLI Ordering Dr: Ana Winslow DO Date: 07/28 06/20 Location: CVS Sex: F C Admitted: Reason For Study Reason For Study: Pain RIGHT LEFT GSV is normal. CFV is compressible, spontaneous, phasic, competent, CFV is compressible, spontaneous, phasic, competent and demonstrates normal augmentation. and demonstrates normal augmentation. FV is compressible, spontaneous, phasic, competent and demonstrates normal augmentation. POP V is compressible, spontaneous, phasic, competent and demonstrates normal augmentation. T/P Trunk is compressible. PTV is compressible. RT PerV is compressible. Procedure This is a venous duplex using B-mode, color flow and spectral Doppler. Exam performed in department. VL/Venous Duplex US, Unilateral Interpretation Summary Deep veins of the right lower extremity are patent and compressible segmentally.There is no evidence of right lower extremity deep vein thrombosis. The right great saphenous vein appears patent and compressible segmentally. Ordering Physician: Ana Winslow Referring Physician: Ana Winslow Performed By: Lorraine Mills RVT 08/22/24 1510 Date _ Mendez Storey MD CC: Dr. Ana Winslow DO ~ Date Dictated: 08/18/24 1302 Date Transcribed: 08/22/24 1510 Garbage Truck Driver: Signed [facility] Work Phone: Venous Duplex US, Unilateral on 08-18-2024 Venous Duplex US, Unilateral [facility] [address] [place] [address] Venous Duplex US, Unilateral 08/18/24 1302 MR#: [id number] Acct: [id number] Name: AURY BANUELOS Rep #: [id number] : 1950 74 From: Mendez Storey MD Attending Dr: Dr. Ana Winslow DO Status: REG CL I Ordering Dr: Ana Winslow DO Date: 08/18/24 Location: CVS Sex: F C Admitted: Reason For Study Reason For Study: Pain RIGHT LEFT GSV is normal. CFV is compressible, spontaneous, phasic, competent, CFV is compressible, spontaneous, phasic, competent and demonstrates normal augmentation. and demonstrates normal augmentation. FV is compressible, spontaneous, phasic, competent and demonstrates normal augmentation. POP V is compressible, spontaneous, phasic, competent and demonstrates normal augmentation. T/P Trunk is compressible. PTV is compressible. RT PerV is compressible. Procedure This is a venous duplex using B-mode, color flow and spectral Doppler. Exam performed in department. VL/Venous Duplex US, Unilateral Interpretation Summary Deep veins of the right lower extremity are patent and compressible segmentally. There is no evidence of right lower extremity deep vein thrombosis. The right great saphenous vein appears patent and compressible segmentally. Ordering Physician: Ana Winslow Referring Physician: Ana Winslow Performed By: Lorraine Mills, RVT 08/22/24 1510 Date Mendez Storey MD CC: Dr. Ana Winslow, DO Date Dictated: 08/18/24 1302 Date Transcribed: 08/22/24 1510 Garbage Truck Driver: Signed Normal [facility] PT D/C Summary (1)on 025 PT D/C Summary (1) [facility] Physical Therapy [address] [place] [address] / REHABILITATION SERVICES DISCHARGE SUMMARY MR#: [id number] Acct: [id number] Name: AURY BANUELOS Rep #: [id number] : 1950 74 From: Mendez Dennis DPT, OCS, CSCS Referring DrEdgardo: SISSY SHETH Status: REG RCR Insurance: MEDICARE PART A B [facility] Discharge Summary D/C summary: It has been my pleasure to treat AURY BANUELOS referred by DAYAMI PEREZ, with the diagnosis of s/p R TKA 05/25/24 for a total of 7 visit(s). Discharge Date: 08/14/24 Please see the following information for a summary of their discharge status. Subjective Subjective: having an US due to calf pain intermittently. Otherwisee leg holding her up well. Still doing home exercises at sink. Exercising at home. sleeping well. Avoiding long walks but can walk 100 yards or so. Would like to walk dog to end of street, avoiding full walk as it feels weak. Saw surgeon 2 weeks ago and not agin for a year. Pain R knee: Pain Intensity (Out of 10): 0 Overall Improvement % Improvement: 100 Objective Objective/Function: 0 - 118 AROM Walking without antalgia today. steps reciprocally with one rail without weakness. overall excellent presentation without excessive swelling adn - taya. Goals Goal 1:: FGA score 27/30 Goal Progress: Goal Met Goal 2:: TUG less than 10 seconds Goal Progress: Goal Met Goal 3:: 0-122 AROM to aid in comfort on steps Goal Progress: Progressing Goal 4:: Steps up and down 2 flights with one rail I without deviations Goal Progress: Goal Met Goal 5:: womac score less than 15 Goal Progress: Goal Met Goal 6:: Pt feel 95% back to normal activity and I in continued gym strength program Goal Progress: Goal Met Plan Plan: d/c to HEP D/C Information d/c sentence: If there are questions or concerns regarding this patient's physical therapy, please feel free to call me at [phone]. Thank you for the referral of this patient. Sincerely, Mendez Dennis, DPT, OCS, CSCS Balance/Gait/Functiona l tests Balance/Special Test Scores Functional Gait Assessment Score: 27 % Disability: 10.0000 TUG Test Time Seconds: 8 Tug Test: <10 sec.=free mobile WOMAC Total Score: 8 WOMAC Percentage: 91.6700 Improvement % Improvement: 100 08/14/24 1522 CC: Dr. Ana Winslow DO; SISSY SHETH EBG Signed Normal [facility] Abdomen Single Viewon 2024 Abdomen Single View [facility] Imaging Services [address] [place] [address] Abdomen Single View MR#: [id number] Acct: [id number] Name: AURY BANUELOS Rep #: [id number] : 1950 F 74 From: Jose E Melgar MD PCP: Dr. Ana Winslow DO Status: REG CLI Study: Abdomen Single View Date of Exam: 06/27/24 Exam# [id number] Ordering Dr: Sharyn Barron FINANCE ATTORNEYAntoine EXAM: XR Abdomen, 1 View CLINICAL INDICATION: ASSESS STOOL BURDEN TECHNIQUE: Frontal supine view of the abdomen/pelvis. COMPARISON: No relevant prior studies available. FINDINGS: GASTROINTESTINAL TRACT: Moderate volume fecal retention in the colon consistent with constipation. No dilation. BONES/JOINTS: Unremarkable. No acute fracture. RAD/Abdomen Single View IMPRESSION: Moderate volume fecal retention in the colon consistent with constipation. Reading Location: [facility]- CC: FINANCE ATTORNEY-C Sharyn Barron; Dr. Ana Winslow DO Garbage Truck Driver: Signed Normal [facility] Inital Evaluation (1) - PTon 06-13-2024 Inital Evaluation (1) - PT [facility] [address] [place] [address]. [address] [place] [address] / REHABILITATION SERVICES INITIAL EVALUATION MR#: [id number] Acct: [id number] Name: AURY BANUELOS Rep #: [id number] : 1950 74 From: Mendez Dennis DPT, OCS, CSCS Referring Dr.: SISSY SHETH Status: REG RCR Insurance: MEDICARE PART A B [facility] Patient's Visit Information Visit Information Visit Information: AURY BANUELOS is a 74 year old F referred to Physical Therapy by DAYAMI PEREZ with a diagnosis of s/p R TKA 05/25/24. Date of Evaluation: 06/13/24 Physical Therapist: Mendez Dennis DPT, OCS, CSCS Visit Plan Frequency: 2x /Week Duration: 4-6 Weeks Plan: 2x/week for 4-6 weeks : IE HEP SLR 3x10 daily, HS with OP 12x 2x.day, continued standing ex daily, bike 5 min 3x/day, walk daily and continue ice as needed Treat in clinic with 1. Teach gym based strength program LE, Core, posture adn to I 2. patella mobs, knee ROM flexion, scar massage 3. gait and stair training. Subjective Subjective: R TKA 05/25/24. It went well. Lots of pain prior to and then after surgery. Miserable for a couple days. Had home health for two weeks. Does sitting ex and standing standing ex and ROM. Pain 0-4/10. Icing as needed now. Taking vicodin every 4 hours. No walker or cane anymore but walker at first. No falls. No steps. Lives alone. one step to enter with L. Holding onto wall. Employed, Retired. Takes care of granddaughter when she is healthy and can drive again. Basic ADLs all I and has lip to walk in shower. Hobbies: Yard work, mowing and planting and wants to do that again. Exercise , none but wants to join gym Pain R knee: Pain Intensity (Out of 10): 0 Pain Intensity Range: 0 and 4 Comment: getting up from chair Objective Objective: R knee. TUG 12 seconds AROM 0-113 R and 0-120 L. strength R quad 26# and HS 50# girth 17 at patella on R adn 21 6 inch suprapatellar Walking without AD I today with good balance. trasnfers chair with UE I, steps reciprocal with two railing and lacks FW weight shift onto R and obviously expectedly weaker on R. Bed transfers I. SLR without lag today 2x on R Incision is dry and healed well with moderate scarring more distal the proximal, no signs of excessive redness heat or swelling. Quad is minimally tender R vs L Balance/Special Test Scores Functional Gait Assessment Score: 25 % Disability: 16.6700 WOMAC Total Score: 35 WOMAC Percentatge: 63.5500 Goals Goal 1:: FGA score 27/30 Goal Time Frame: 4-6 Weeks Goal 2:: TUG less than 10 seconds Goal Time Frame: 4-6 Weeks Goal 3:: 0-122 AROM to aid in comfort on steps Goal Time Frame: 4-6 Weeks Goal 4:: Steps up and down 2 flights with one rail I without deviations Goal Time Frame: 4-6 Weeks Goal 5:: womac score less than 15 Goal Time Frame: 4-6 Weeks Goal 6:: Pt feel 95% back to normal activity and I in continued gym strength program Goal Time Frame: 4-6 Weeks Rehabilitation Potential Physical Therapy Diagnosis: stiffness and weakness R LE limiting comfortable function Rehabilitation Potential: Good Anticipated Interventions Patient/Client Instruction: Educate patient on: Condition and Plan of Care For the Purpose of:: To decrease pain, To increase ROM, To improve nutrient delivery to tissue, To improve muscle performance and motor function, To increase tolerance to activity/condition/pos ition, To improve ability of physical actions for home/community/work/le isure and To improve gait and locomotor functions Therapeutic Exercise to Include: Strength training, Balance training, Postural training, Flexibilty training, Passive ROM and Active ROM For the Purpose of:: To decrease pain, To increase ROM, To improve nutrient delivery to tissue, To improve muscle performance and motor function, To increase tolerance to activity/condition/pos ition, To improve ability of physical actions for home/community/work/le isure and To improve gait and locomotor functions Manual Therapy Techniques to Include: Scar massage, Mobilization, Passive ROM and Soft tissue mobilization For the Purpose of:: To decrease pain, To decrease swelling/inflammation, To increase ROM, To improve nutrient delivery to tissue and To improve muscle performance and motor function Cryotherapy (ice pack, ice massage): Yes For the Purpose of:: To decrease swelling/inflammation Text: Thank you for the opportunity to evaluate your patient. For Medicare and Medicare HMO plans, please review the plan of care and approve it. It will need to be FAXED BACK to us at [phone] for Medicare purposes. For Medicare only, by signing this I certify the plan of care. Please let me know if there are questions or concerns regarding this plan of care. Physician Signature: (more content not included)... Normal [facility] ANTINUCLEAR ANTIBODIES DIREC Ton 04-10-2024 MARY,DIRECT Negative Normal Negative [facility] Comment on above: Result Comment: Perf ormed at: - [facility] [id number] Offal Baler: Galileo Cowart PhD, Phone: [phone] Performed By: #### L 4600.0100, L101.9900, L3890.6100, L501.6710, L500.4050, L100.0100, L505.7010, L3890.6200, L3100.5475, L3890.6300 ####[facility] [address] [place], [address] CCP IgG Antibodieson 025 CCP IgG Ab. 2 units Normal 0-19 [facility] Comment on above: Result Comment: Nega tive <20 Weak positive 20 - 39 Moderate positive 40 - 59 Strong positive >59 Performed at: [facility] [address] [place], [place] [id number] Offal Baler: Galileo Cowart PhD, Phone: [phone] Performed By: #### L 4600.0100, L101.9900, L3890.6100, L501.6710, L500.4050, L100.0100, L505.7010, L3890.6200, L3100.5475, L3890.7123 ####[facility] [address] [place], [address] MARY serumOrdered By: Laverne mendez on 04-07-2024 Anti-Nuclear Antibody Screen Negative Negative [facility] Comment on above: Performed at: [employer] [facility] [id number] [place], [place] [id number] Director: Galileo Cowart PhD, Phone: [phone] Absolute neutrophil countOrd ered By: Laverne Hammond on 04-07-2024 Neutrophils (Bld) [#/Vol] 5.4 10*3/uL 2.0-7.7 [facility] Albumin to globulin ratioOrd ered By: Laverne Hammond on 04-07-2024 Albumin/Globulin [Mass ratio] 1.0 {ratio} 0.9-2.4 [facility] Basophil percentageOrdered B y: Laverne Hammond on 04-07-2024 Basophils/100 WBC (Bld) 1.0 % 0-1 [facility] Bilirubin, totalOrdered By: Laverne Hammond on 04-07-2024 Bilirubin [Mass/Vol] 0.40 mg/dL 0.20-1.00 [facility] Comment on above: For patients on eltr ombopag therapy, use of Dimension [place] TBIL is not recommended. Blood urea nitrogen (BUN)/cr eatinine ratioOrdered By: Laverne Hammond on 04-07-2024 Urea nitrogen/Creatinine [Mass ratio] 27.5 mg/mg High 01-15 [facility] C-reactive protein measureme nt by high sensitivity methodOrdered By: Laverne Hammond on 04-07-2024 C-Reactive Protein Extended Range 6.88 mg/L High 0.0-3.0 [facility] Comment on above: C-Reactive Protein ( CRP) provides useful information for thediagnosis, therapy and monitoring of inflammatory processesand associated diseases. For the evaluation of Relative Riskfor Cardiovascular Disease, a High Sensitivity CRP (HSCRP)should be ordered. CBC W/Diff, Automatedon 03-29 Absolute Lymph 2.56 X10 3/uL Normal 0.83-4.51 [facility] Comment on above: Performed By: #### L 4600.0100, L101.9900, L3890.6100, L501.6710, L500.4050, L100.0100, L505.7010, L3890.6200, L3100.5475, L3890.6300 #### [facility] [address] [place], [address] Absolute Neut 5.4 X10 3/uL Normal 2.0-7.7 [facility] Comment on above: Performed By: #### L 4600.0100, L101.9900, L3890.6100, L501.6710, L500.4050, L100.0100, L505.7010, L3890.6200, L3100.5475, L3890.6300 #### [facility] [address] [place], [place], [phone] Basophils/100 WBC (Bld) 1.0 % Normal 0-1 [facility] Comment on above: Performed By: #### L 4600.0100, L101.9900, L3890.6100, L501.6710, L500.4050, L100.0100, L505.7010, L3890.6200, L3100.5475, L3890.6300 #### [facility] [address] [place], [address] (051) Eosinophils/100 WBC (Bld) 6.1 % High 0-5 [facility] Comment on above: Performed By: #### L 4600.0100, L101.9900, L3890.6100, L501.6710, L500.4050, L100.0100, L505.7010, L3890.6200, L3100.5475, L3890.6300 #### [facility] [address] [place], [address] Erythrocyte distribution width (RBC) [Ratio] 15.0 % High 11.6-14.6 [facility] Comment on above: Performed By: #### L 4600.0100, L101.9900, L3890.6100, L501.6710, L500.4050, L100.0100, L505.7010, L3890.6200, L3100.5475, L3890.6300 #### [facility] [address] [place], [address] (558) Hematocrit (Bld) [Volume fraction] 40.3 % Normal 37-47 [facility] Comment on above: Performed By: #### L 4600.0100, L101.9900, L3890.6100, L501.6710, L500.4050, L100.0100, L505.7010, L3890.6200, L3100.5475, L3890.6300 #### [facility] [address] [facility] [place], [address] (865) Hemoglobin (Bld) [Mass/Vol] 12.4 g/dL Normal 12.0-15.0 [facility] Comment on above: Performed By: #### L 4600.0100, L101.9900, L3890.6100, L501.6710, L500.4050, L100.0100, L505.7010, L3890.6200, L3100.5475, L3890.6300 #### [facility] [address] [place], [address] IG% 0.500 Normal 0.0-0.9 [facility] Comment on above: Result Comment: IG% - Immature Granulocytes (promyelocytes, myelocytes and metamyelocytes) > 1% indicates that a LEFT SHIFT is Present. Performed By: #### L 4600.0100, L101.9900, L3890.6100, L501.6710, L500.4050, L100.0100, L505.7010, L3890.6200, L3100.5475, L3890.6300 #### [facility] [address] [place], [address] Lymphocytes/100 WBC (Bld) 26.8 % Normal 19-41 [facility] Comment on above: Performed By: #### L 4600.0100, L101.9900, L3890.6100, L501.6710, L500.4050, L100.0100, L505.7010, L3890.6200, L3100.5475, L3890.6300 #### [facility] [address] [place], [address] MCH (RBC) [Entitic mass] 28.4 pg Normal 27.0-32.0 [facility] Comment on above: Performed By: #### L 4600.0100, L101.9900, L3890.6100, L501.6710, L500.4050, L100.0100, L505.7010, L3890.6200, L3100.5475, L3890.6300 #### [facility] [address] [place], [address] MCHC (RBC) [Mass/Vol] 30.8 g/dL Low 32-36 [facility] Comment on above: Performed By: #### L 4600.0100, L101.9900, L3890.6100, L501.6710, L500.4050, L100.0100, L505.7010, L3890.6200, L3100.5475, L3890.6300 #### [facility] [address] [place], [place], [phone] (612) MCV (RBC) [Entitic vol] 92.2 fL Normal 81-99 [facility] Comment on above: Performed By: #### L 4600.0100, L101.9900, L3890.6100, L501.6710, L500.4050, L100.0100, L505.7010, L3890.6200, L3100.5475, L3890.6300 #### [facility] [address] [place], [place], [phone] (195) Monocytes/100 WBC (Bld) 9.3 % Normal 0-10 [facility] Comment on above: Performed By: #### L 4600.0100, L101.9900, L3890.6100, L501.6710, L500.4050, L100.0100, L505.7010, L3890.6200, L3100.5475, L3890.6300 #### [facility] [address] [place], [place], [phone] (635) Neutrophils/100 WBC (Bld) 56.3 % Normal 47-70 [facility] Comment on above: Performed By: #### L 4600.0100, L101.9900, L3890.6100, L501.6710, L500.4050, L100.0100, L505.7010, L3890.6200, L3100.5475, L3890.6300 #### [facility] [address] [place], [address] (106) Nucleated RBC (Bld) [#/Vol] 0 10*3/uL Normal 0-5 [facility] Comment on above: Performed By: #### L 4600.0100, L101.9900, L3890.6100, L501.6710, L500.4050, L100.0100, L505.7010, L3890.6200, L3100.5475, L3890.6300 #### [facility] [address] [place], [address] (133) Platelet mean volume (Bld) [Entitic vol] 8.6 fL Normal 6.2-12.0 [facility] Comment on above: Performed By: #### L 4600.0100, L101.9900, L3890.6100, L501.6710, L500.4050, L100.0100, L505.7010, L3890.6200, L3100.5475, L3890.6300 #### [facility] [address] [place], [place], [phone] (967) Platelets (Bld) [#/Vol] 389 10*3/uL Normal 150-450 [facility] Comment on above: Performed By: #### L 4600.0100, L101.9900, L3890.6100, L501.6710, L500.4050, L100.0100, L505.7010, L3890.6200, L3100.5475, L3890.6300 #### [facility] [address] [place], [address] (835) RBC (Bld) [#/Vol] 4.37 10*6/uL Normal 4.2-5.4 [facility] Comment on above: Performed By: #### L 4600.0100, L101.9900, L3890.6100, L501.6710, L500.4050, L100.0100, L505.7010, L3890.6200, L3100.5475, L3890.6300 #### [facility] [address] [place], [place], [phone] RDW SD 50.6 fl High 35.1-43.9 [facility] Comment on above: Performed By: #### L 4600.0100, L101.9900, L3890.6100, L501.6710, L500.4050, L100.0100, L505.7010, L3890.6200, L3100.5475, L3890.6300 #### [facility] [address] [place], [place], [phone] WBC (Bld) [#/Vol] 9.6 10*3/uL Normal 4.4-11.0 [facility] Comment on above: Performed By: #### L 4600.0100, L101.9900, L3890.6100, L501.6710, L500.4050, L100.0100, L505.7010, L3890.6200, L3100.5475, L3890.6300 #### [facility] [address] [place], [address] CRPon 04-07-2024 C-REACTIVE PROT 6.88 mg/L High 0.0-3.0 [facility] Comment on above: Result Comment: C-Re active Protein (CRP) provides useful information for the diagnosis, therapy and monitoring of inflammatory processes and associated diseases. For the evaluation of Relative Risk for Cardiovascular Disease, a High Sensitivity CRP (HSCRP) should be ordered. Performed By: #### L 4600.0100, L101.9900, L3890.6100, L501.6710, L500.4050, L100.0100, L505.7010, L3890.6200, L3100.5475, L3890.6300 ####[facility] [address] [place], [place], [phone] Carbon dioxide measurementOr dered By: Laverne Hammond on 04-07-2024 CO2 [Moles/Vol] 29.0 mmol/L 21.0-32.0 [facility] Chloride measurementOrdered By: Laverne Hammond on 04-07-2024 Chloride [Moles/Vol] 105 mmol/L 98-107 [facility] Comprehensive Metabolic Prof ilon 04-07-2024 Albumin [Mass/Vol] 3.9 g/dL Normal 3.2-5.0 [facility] Comment on above: Performed By: #### L 4600.0100, L101.9900, L3890.6100, L501.6710, L500.4050, L100.0100, L505.7010, L3890.6200, L3100.5475, L3890.6300 ####[facility] [address] [place], [place], [phone] Albumin/Globulin [Mass ratio] 1.0 {ratio} Normal 0.9-2.4 [facility] Comment on above: Performed By: #### L 4600.0100, L101.9900, L3890.6100, L501.6710, L500.4050, L100.0100, L505.7010, L3890.6200, L3100.5475, L3890.6300 ####[facility] [address] [place], [place], [phone] ALK P 60 U/L Normal 45-117 [facility] Comment on above: Performed By: #### L 4600.0100, L101.9900, L3890.6100, L501.6710, L500.4050, L100.0100, L505.7010, L3890.6200, L3100.5475, L3890.6300 ####[facility] [address] [place], [place], [phone] ALT [Catalytic activity/Vol] 19 U/L Normal 13-56 [facility] Comment on above: Performed By: #### L 4600.0100, L101.9900, L3890.6100, L501.6710, L500.4050, L100.0100, L505.7010, L3890.6200, L3100.5475, L3890.6300 ####[facility] [address] [place], [place], [phone] AST [Catalytic activity/Vol] 12 U/L Low 15-37 [facility] Comment on above: Performed By: #### L 4600.0100, L101.9900, L3890.6100, L501.6710, L500.4050, L100.0100, L505.7010, L3890.6200, L3100.5475, L3890.6300 ####[facility] [address] [place], [address] Bilirubin [Mass/Vol] 0.40 mg/dL Normal 0.20-1.00 [facility] Comment on above: Result Comment: For patients on eltrombopag therapy, use of Dimension [place] TBIL is not recommended. Performed By: #### L 4600.0100, L101.9900, L3890.6100, L501.6710, L500.4050, L100.0100, L505.7010, L3890.6200, L3100.5475, L3890.6300 ####[facility] [address] [place], [place], [phone] BUN/CRE 27.5 RATIO High 10-20 [facility] Comment on above: Performed By: #### L 4600.0100, L101.9900, L3890.6100, L501.6710, L500.4050, L100.0100, L505.7010, L3890.6200, L3100.5475, L3890.6300 ####[facility] [address] [place], [place], [phone] CA,Total 10.1 mg/dL Normal 8.5-10.1 [facility] Comment on above: Performed By: #### L 4600.0100, L101.9900, L3890.6100, L501.6710, L500.4050, L100.0100, L505.7010, L3890.6200, L3100.5475, L3890.6300 ####[facility] [address] [place], [place], [phone](131) Chloride [Moles/Vol] 105 mmol/L Normal 98-107 [facility] Comment on above: Performed By: #### L 4600.0100, L101.9900, L3890.6100, L501.6710, L500.4050, L100.0100, L505.7010, L3890.6200, L3100.5475, L3890.6300 ####[facility] [address] [place], [place], [phone](824) CO2 [Moles/Vol] 29.0 mmol/L Normal 21.0-32.0 [facility] Comment on above: Performed By: #### L 4600.0100, L101.9900, L3890.6100, L501.6710, L500.4050, L100.0100, L505.7010, L3890.6200, L3100.5475, L3890.6300 ####[facility] [address] [place], [place], [phone](980) Creatinine [Mass/Vol] 0.76 mg/dL Normal 0.55-1.02 [facility] Comment on above: Result Comment: The validity of the calculated GFR GFRAA in patients over 70 years has not been determined. Clinical correlation is essential. Performed By: #### L 4600.0100, L101.9900, L3890.6100, L501.6710, L500.4050, L100.0100, L505.7010, L3890.6200, L3100.5475, L3890.6300 ####[facility] [address] [place], [address](313) EST GFR - AA 96 mL/min Normal >60 [facility] Comment on above: Result Comment: Afri can Trinidadian GFR Calc Performed By: #### L 4600.0100, L101.9900, L3890.6100, L501.6710, L500.4050, L100.0100, L505.7010, L3890.6200, L3100.5475, L3890.6300 ####[facility] [address] [place], [place], [phone] GAP 4 Low 5-15 [facility] Comment on above: Performed By: #### L 4600.0100, L101.9900, L3890.6100, L501.6710, L500.4050, L100.0100, L505.7010, L3890.6200, L3100.5475, L3890.6300 ####[facility] [address] [place], [address] GFR/1.73 sq M.predicted among non-blacks MDRD (S/P/Bld) [Vol rate/Area] 79 mL/min/{1.73_m2} Normal >60 [facility] Comment on above: Result Comment: Non- GFR Calc Performed By: #### L 4600.0100, L101.9900, L3890.6100, L501.6710, L500.4050, L100.0100, L505.7010, L3890.6200, L3100.5475, L3890.6300 ####[facility] [address] [place], [address] Globulin (S) [Mass/Vol] 4.1 g/dL Normal 2.2-4.2 [facility] Comment on above: Performed By: #### L 4600.0100, L101.9900, L3890.6100, L501.6710, L500.4050, L100.0100, L505.7010, L3890.6200, L3100.5475, L3890.6300 ####[facility] [address] [place], [address] Glucose [Mass/Vol] 100 mg/dL Normal 74-106 [facility] Comment on above: Result Comment: Fast ing Glucose result from 100 to 125 mg/dL suggests IMPAIRED HOMEOSTASIS per A.D.A. criteria. Performed By: #### L 4600.0100, L101.9900, L3890.6100, L501.6710, L500.4050, L100.0100, L505.7010, L3890.6200, L3100.5475, L3890.6300 ####[facility] [address] [place], [address] Potassium [Moles/Vol] 4.2 mmol/L Normal 3.5-5.1 [facility] Comment on above: Performed By: #### L 4600.0100, L101.9900, L3890.6100, L501.6710, L500.4050, L100.0100, L505.7010, L3890.6200, L3100.5475, L3890.6300 ####[facility] [address] [place], [address] Sodium [Moles/Vol] 138 mmol/L Normal 136-145 [facility] Comment on above: Performed By: #### L 4600.0100, L101.9900, L3890.6100, L501.6710, L500.4050, L100.0100, L505.7010, L3890.6200, L3100.5475, L3890.6300 ####[facility] [address] [place], [address] T PROT 8.0 g/dL Normal 6.4-8.2 [facility] Comment on above: Performed By: #### L 4600.0100, L101.9900, L3890.6100, L501.6710, L500.4050, L100.0100, L505.7010, L3890.6200, L3100.5475, L3890.6300 ####[facility] [address] [place], [address] Urea nitrogen [Mass/Vol] 21 mg/dL High 7-18 [facility] Comment on above: Performed By: #### L 4600.0100, L101.9900, L3890.6100, L501.6710, L500.4050, L100.0100, L505.7010, L3890.6200, L3100.5475, L3890.6300 ####[facility] [address] [place], [address] Cyclic citrullinated peptide IgG QnOrdered By: Laverne Hammond on 04-07-2024 Cyclic Citrullinated Peptide IgG Ab 2 units 0-19 [facility] Comment on above: Negative <20 Weak po sitive 20 - 39 Moderate positive 40 - 59 Strong positive >59Performed at: [facility] [place] [id number] Director: Galileo Cowart PhD, Phone: [phone] Eosinophil percentageOrdered By: aLverne Hammond on 04-07-2024 Eosinophils/100 WBC (Bld) 6.1 % High 0-5 [facility] Erythrocyte Sed Rateon 04-07 SED RATE 19 mm/hr Normal 0-30 [facility] Comment on above: Performed By: #### L 4600.0100, L101.9900, L3890.6100, L501.6710, L500.4050, L100.0100, L505.7010, L3890.6200, L3100.5475, L3890.6300 #### [facility] [address] [place], [address] Erythrocyte distribution wid th (RBC) [Ratio]Ordered By: Laverne Hammond on 04-07-2024 Erythrocyte distribution width (RBC) [Entitic vol] 50.6 fL High 35.1-43.9 [facility] Erythrocyte distribution wid th ratioOrdered By: Laverne Hammond on 04-07-2024 Erythrocyte distribution width (RBC) [Ratio] 15.0 % High 11.6-14.6 [facility] Erythrocyte sedimentation ra teOrdered By: Laverne Hammond on 04-07-2024 ESR (Bld) [Velocity] 19 mm/h 0-30 [facility] Estimated glomerular filtrat ion rate (GFR) AmericanOrdered By: Laverne Hammond on 04-07-2024 Estimated GFR (MDRD) Amer 96 mL/min >60 [facility] Comment on above: GFR Calc Glomerular filtration rate ( GFR) estimationOrdered By: Laverne Hammond on 04-07-2024 Estimated GFR (MDRD) Non-Af Amer 79 mL/min >60 [facility] Comment on above: Non- GFR Calc Glucose measurementOrdered B y: Laverne Hammond on 04-07-2024 Glucose [Mass/Vol] 100 mg/dL 74-106 [facility] Comment on above: Fasting Glucose resu lt from 100 to 125 mg/dL suggests IMPAIRED HOMEOSTASIS per A.D.A. criteria. HBV surface IgG Ql (S)Ordere d By: Laverne Hammond on 04-07-2024 Hepatitis B Surface Antibody Non-Reactive [facility] Comment on above: Non Reactive: Incons istent with immunity less than <10 mIU/mL Reactive: Consistent with immunity greater than or equal to 10 mIU/mL Hematocrit Auto (Bld) [Volum e fraction]Ordered By: Laverne Hammond on 04-07-2024 Hematocrit (Bld) [Volume fraction] 40.3 % 37-47 [facility] Hemoglobin measurementOrdere d By: Laverne Hammond on 04-07-2024 Hemoglobin (Bld) [Mass/Vol] 12.4 g/dL 12.0-15.0 [facility] Hepatitis B Surface Antibody on 04-07-2024 HEP B Surf Ab Non-Reactive Normal [facility] Comment on above: Result Comment: Non Reactive: Inconsistent with immunity less than <10 mIU/mL Reactive: Consistent with immunity greater than or equal to 10 mIU/mL Performed By: #### L 4600.0100, L101.9900, L3890.6100, L501.6710, L500.4050, L100.0100, L505.7010, L3890.6200, L3100.5475, L3890.6300 ####[facility] [address] [place], [address] Hepatitis B Surface Antigeno n 04-07-2024 HEP B Surf Ag Non-Reactive Normal Nonreactive [facility] Comment on above: Performed By: #### L 4600.0100, L101.9900, L3890.6100, L501.6710, L500.4050, L100.0100, L505.7010, L3890.6200, L3100.5475, L3890.6300 ####[facility] [address] [place], [address] Hepatitis B surface antigen detectionOrdered By: Laverne Hammond on 04-07-2024 Hepatitis B Surface Antigen Non-Reactive Nonreactive [facility] Hepatitis C Antibodyon 04-07 Hepatitis C AB [facility] Comment on above: Result Comment: Non Reactive: < 0.8 Equivocal: >/= 0.8 to < 1.0 Reactive: >/= 1.0 The CDC requires that a reactive/equivocal HCV antibody result be sent out for confirmation. HCV Quant by PCR testing. Performed By: #### L 4600.0100, L101.9900, L3890.6100, L501.6710, L500.4050, L100.0100, L505.7010, L3890.6200, L3100.5475, L3890.6300 ####[facility] [address] [facility] [place], [address] Hepatitis C virus antibody a ssayOrdered By: Laverne Hammond on 04-07-2024 Hepatitis C Antibody Non-Reactive Nonreactive [facility] Comment on above: Non Reactive: < 0.8 Equivocal: >/= 0.8 to < 1.0 Reactive: >/= 1.0The CDC requires that a reactive/equivocal HCV antibody result be sent out for confirmation. HCV Quant by PCR testing. Immature granulocytes/100 WB C Auto (Bld)Ordered By: Laverne Hammond on 04-07-2024 Immature granulocytes/100 WBC (Bld) 0.500 % 0.0-0.9 [facility] Comment on above: IG% - Immature Granu locytes (promyelocytes, myelocytes and metamyelocytes) > 1% indicates that a LEFT SHIFT is Present. Laboratory - Chemistry and C hemistry - challengeOrdered By: Laverne Hammond on 04-07-2024 AST [Catalytic activity/Vol] 12 U/L Low 15-37 [facility] Lymphocytes Auto (Unsp spec) [#/Vol]Ordered By: Laverne Hammond on 04-07-2024 Lymphocytes (Bld) [#/Vol] 2.56 10*3/uL 0.83-4.51 [facility] Lymphocytes/100 WBC Auto (Un sp spec)Ordered By: Laverne Hammond on 04-07-2024 Lymphocytes/100 WBC (Bld) 26.8 % 19-41 [facility] MCV (mean corpuscular volume ) determinationOrdered By: Laverne Hammond on 04-07-2024 MCV (RBC) [Entitic vol] 92.2 fL 81-99 [facility] Mean corpuscular hemoglobin (MCH) determinationOrdered By: Laverne Hammond on 04-07-2024 MCH (RBC) [Entitic mass] 28.4 pg 27.0-32.0 [facility] Mean corpuscular hemoglobin concentration (MCHC) determinationOrdered By: Laverne Hammond on 04-07-2024 MCHC (RBC) [Mass/Vol] 30.8 g/dL Low 32-36 [facility] Mean platelet volume determi nationOrdered By: Laverne Hammond on 04-07-2024 Platelet mean volume (Bld) [Entitic vol] 8.6 fL 6.2-12.0 [facility] Monocyte percentageOrdered B y: Laverne Hammond on 04-07-2024 Monocytes/100 WBC (Bld) 9.3 % 0-10 [facility] Neutrophil percentageOrdered By: Laverne Hammond on 04-07-2024 Neutrophils/100 WBC (Bld) 56.3 % 47-70 [facility] Nucleated red blood cell per centageOrdered By: Laverne Hammond on 04-07-2024 Nucleated RBC/100 WBC (Bld) [Ratio] 0 % 0-5 [facility] Platelet countOrdered By: Hubert Hammond on 04-07-2024 Platelets (Bld) [#/Vol] 389 10*3/uL 150-450 [facility] Potassium measurementOrdered By: Laverne Hammond on 04-07-2024 Potassium [Moles/Vol] 4.2 mmol/L 3.5-5.1 [facility] RBC Auto (Bld) [#/Vol]Ordere d By: Laverne Hammond on 04-07-2024 RBC (Bld) [#/Vol] 4.37 10*6/uL 4.2-5.4 [facility] Rheumatoid Factoron 04-07-19 25 RHEUMATOID FAC < 10.0 Normal <15 [facility] Comment on above: Performed By: #### L 4600.0100, L101.9900, L3890.6100, L501.6710, L500.4050, L100.0100, L505.7010, L3890.6200, L3100.5475, L3890.6300 ####[facility] [id number] [place], [place], [id number] Rheumatoid factor measuremen tOrdered By: Laverne Hammond on 04-07-2024 Rheumatoid Factor < 10.0 IU/mL <15 [facility] Serum anion gap measurementO rdered By: Laverne Hammond on 04-07-2024 Anion gap [Moles/Vol] 4 mmol/L Low 5-15 [facility] Serum globulin measurementOr dered By: Laverne Hammond on 04-07-2024 Globulin (S) [Mass/Vol] 4.1 g/dL 2.2-4.2 [facility] Serum or plasma alanine dickens otransferase (ALT) measurementOrdered By: Laverne Hammond on 01-10-2025 ALT [Catalytic activity/Vol] 19 U/L 13-56 [facility] Serum or plasma albumin hugh urement (mass/volume)Ordered By: Laverne Hammond on 04-07-2024 Albumin [Mass/Vol] 3.9 g/dL 3.2-5.0 [facility] Serum or plasma alkaline mitch sphatase measurementOrdered By: Laverne Hammond on 04-07-2024 ALP [Catalytic activity/Vol] 60 U/L 45-117 [facility] Serum or plasma calcium hugh urement (mass/volume)Ordered By: Laverne Hammond on 04-07-2024 Calcium [Mass/Vol] 10.1 mg/dL 8.5-10.1 [facility] Serum or plasma creatinine m easurement (mass/volume)Ordered By: Laverne Hammond on 04-07-2024 Creatinine [Mass/Vol] 0.76 mg/dL 0.55-1.02 [facility] Comment on above: The validity of the calculated GFR & GFRAA in patients over 70 years has not been determined. Clinical correlation is essential. Serum or plasma urea nitroge n measurement (mass/volume)Ordered By: Laverne Hammond on 04-07-2024 Urea nitrogen [Mass/Vol] 21 mg/dL High 7-18 [facility] Sodium levelOrdered By: Miguel Angel Hammond on 04-07-2024 Sodium [Moles/Vol] 138 mmol/L 136-145 [facility] Total proteinOrdered By: Calderon Hammond on 04-07-2024 Protein [Mass/Vol] 8.0 g/dL 6.4-8.2 [facility] White blood cell (WBC) count Ordered By: Laverne Hammond on 04-07-2024 WBC (Bld) [#/Vol] 9.6 10*3/uL 4.4-11.0 [facility] L3300.0940on 01-15-2024 VIT D,[address] [facility] Comment on above: Result Comment: TEST RESULTS LIMITS Vitamin D, 25-Hydroxy 57.1 ng/mL 30.0-100.0 Vitamin D deficiency has been defined by the [employer] and an Endocrine Society practice guideline as a level of serum 25-OH vitamin D less than 20 ng/mL (1,2). The Endocrine Society went on to further define vitamin D insufficiency as a level between 21 and 29 ng/mL (2). 1. IOM ([employer]). 2010. Dietary reference intakes for calcium and D. [place]: The National Academies Press. 2. Augusto MF, [place], Cassius GONZALEZ, et al. Evaluation, treatment, and prevention of vitamin D deficiency: an Endocrine Society clinical practice guideline. JCEM. 2010; 96(7):1911-30. TESTING PERFORMED AT [facility]. ORIGINAL REPORT ON FILE IN LAB CONTAINS ADDITIONAL TEST SITE INFORMATION. Performed By: #### L 3300.0940 #### [facility] [address] [place], [place], [address] SCRN MAMM (CAD)W/ALESSIO BILATo n 01-04-2024 SCRN MAMM (CAD)W/ALESSIO BILAT [facility] Imaging Services [address] [place], [place] [address] SCRN MAMM (CAD)W/ALESSIO BILAT MR#: [id number] Acct: [id number] Name: AURY BANUELOS Rep #: [id number] : 1950 F 73 From: Grzegorz cifuentes MD PCP: Dr. Ana Winslow, Status: REG CLI Study: SCRN MAMM (CAD)W/ALESSIO BILAT Date of Exam: 11/19 Exam# [id number] Ordering Dr: Ana Winslow DO [id number] MAMMOGRAPHY - BILATERAL SCREENING REASON FOR EXAM: Female, 73 years old. Routine annual screening examination. PERTINENT HISTORY: Aunt with breast cancer. TECHNIQUE: Digital bilateral breast laessio (3D mammographic acquisition) in the CC and MLO projections. 2-D mediolateral oblique (MLO) and craniocaudad (CC) views of both breasts were obtained. CAD: Full Field Digital Mammography with Computer Added Detection was performed. COMPARISON: Comparison is made with prior study dated November 02, 2022 and October 27, 2021. FINDINGS: Breast Composition: The breasts are almost entirely fatty. There are no dominant masses or suspicious calcifications. Stable fat-containing bilateral axillary lymph nodes. No other significant abnormalities are identified. There has been no significant change since the prior study. BI/SCRN MAMM (CAD)W/ALESSIO BILAT IMPRESSION: Stable bilateral screening mammogram. Yearly follow-up mammogram recommended. (A) ASSESSMENT CATEGORY: BIRADS Category 2: Benign. A letter regarding these results will be sent to the patient by the facility within 30 days. Approximately 10% of breast cancers are not detected by mammography. A normal mammogram should not delay biopsy of a clinically suspicious abnormality. [id number] Electronically Signed: Grzegorz Romano MD at 15:29 EDT Reading Location ID and State: [facility] / [place] , Service support , CC: Dr. Ana Winslow DO Garbage Truck Driver: Signed Normal [facility] Chest PA and Lateralon 12-21 Chest PA and Lateral [facility] Imaging Services [address] [place] [id number] Chest PA and Lateral MR#: [id number] Acct: [id number] Name: AURY BANUELOS Rep #: [id number] : 1950 F 73 From: Gil lee DO PCP: Dr. Ana Winslow DO Status: REG CLI Study: Chest PA and Lateral Date of Exam: 12/22/23 Exam# [id number] Ordering Dr: Justin Landeros MD [id number] EXAM: XR CHEST, 2 VIEWS CLINICAL INDICATION: COUGH, COPD TECHNIQUE: Frontal and lateral views of the chest. COMPARISON: CT chest, 09/03/2023 FINDINGS: LUNGS AND PLEURAL SPACES: Mild pulmonary hyperinflation perhaps secondary to COPD. No definite focal pneumonia. No pneumothorax. No effusion. HEART: No significant abnormality. Cardiac silhouette not enlarged. MEDIASTINUM: Central airways and mediastinal contour are unremarkable. BONES/JOINTS: Lumbar spinal orthopedic hardware partially visualized. Degenerative changes throughout the spine and mild scoliotic curvature. No acute fracture. SOFT TISSUES: No significant abnormality. VASCULATURE: Atherosclerosis. RAD/Chest PA and Lateral IMPRESSION: Mild pulmonary hyperinflation perhaps secondary to COPD. No definite focal pneumonia. Electronically Signed: Gil Almanza DO at 20:03 EDT , CC: Dr. Ana Winslow DO; Dr. Justin Landeros MD Garbage Truck Driver: Signed Normal [facility] Inital Evaluation (1) - PTon 12-03-2023 Inital Evaluation (1) - PT [facility] Physical Therapy [facility] [address] [place] [address]. [address] [place] [address] / REHABILITATION SERVICES INITIAL EVALUATION MR#: [id number] Acct: [id number] Name: AURY BANUELOS Rep #: [id number] : 1950 73 From: Rocael Reid DPT Referring Dr.: Dr. Ana Winslow DO Status: REG R CR Insurance: MEDICARE PART A B AARP Patient's Visit Information Visit Information Visit Information: AURY BANUELOS is a 73 year old F referred to Physical Therapy by Dr. Ana Winslow DO with a diagnosis of CERVICALGIA. Date of Evaluation: 10/14/23 Physical Therapist: Rocale Reid DPT Visit Plan Frequency: 2x /Week Duration: 4 Weeks Plan: Start with UT stretch, US to L UT and levator scapulae region. Add in mid trap and scapular strengthening as tolerated. Subjective Subjective: Pt. is here today for her initial evaluation with diagnosis of cervicalgia. Pt. reports 1 month ago she woke up with increased neck pain/stiffness. She reports 1 month prior to that she looked over her L shoulder and felt a crack with instant pain, but alleviated just as quick. Pt. is now having L sided neck pain and some pain that radiates into her anterior shoulder (the radiation of symptoms seems to be more of a tingling). Pt. denies any myotomal weakness since her initial symptoms. She is able to sleep on her L side, but no her R. Pt. reports having intermittent symptoms. Pt. reports great pain is with L cervical rotation. Pt. is hopeful to decrease her pain in order to get back to all recreational activities without limitations. Pain L cervical spine: Pain Intensity (Out of 10): 0 Pain Intensity Range: 0 and 7 Objective Objective: POSTURE: Pt. has general FH posture. Increased rounded shoulders. Equal shoulder heights. PALPATION: Pt. has tenderness along lateral aspect of L cervical spine near C3-C5 section. No pain with rest of palpation throughout cervical spine. NEURO: pt. has normal sensation throughout BUEs. Normal DTR of BUEs. ROM: CERVICAL SPINE: flexion nil loss NE, ext min loss NE, rotation R min loss Ne, rotation L mod loss increase NW, SB R mod loss increase NW, SB L min loss NE. Pt. has full B shoulder ROM without increase in symptoms. MMT: Pt. has symmetrical 5/5 strength throughout BUEs. No myotomal weakness noted. Special Tests C/S Radiculapathy - Left Upper limb tension test: Negative C/S Radiculapathy - Right Upper limb tension test: Negative C/S Radiculapathy - Left Spurlings: Negative C/S Radiculapathy - Right Spurlings: Negative C/S Radiculapathy - Left Cervical distraction: Negative C/S Radiculapathy - Right Cervical distraction: Negative Sharp Tania: Negative Vertebral Artery Test: Negative Alar Ligament Test: Negative Cervical Sitting: Protrusion - Mechanical Response: No effect Cervical Sitting: Protrusion - Symptoms During Testing: No effect Cervical Sitting: Protrusion - Symptoms After Testing: No effect Cervical Sitting: Retraction - Mechanical Response: No effect Cervical Sitting: Retraction - Symptoms During Testing: Produces Cervical Sitting: Retraction-Extension - Mechanical Response: No effect Cerv Sitting: Retraction-Extension - Symptoms During Testing: Produces Cervical Sitting: Sidebend Right - Mechanical Response: No effect Cervical Sitting: Sidebend Right - Symptoms During Testing: Increases Cervical Sitting: Sidebend Right - Symptoms After Testing: No worse Cervical Sitting: Sidebend Left - Mechanical Response: No effect Cervical Sitting: Sidebend Left - Symptoms During Testing: No effect Cervical Sitting: Sidebend Left - Symptoms After Testing: No effect Cervical Sitting: Rotation Right - Mechanical Response: No effect Cervical Sitting: Rotation Right - Symptoms During Testing: No effect Cervical Sitting: Rotation Right - Symptoms After Testing: No effect Cervical Sitting: Rotation Left - Mechanical Response: No effect Cervical Sitting: Rotation Left - Symptoms During Testing: Increases Cervical Sitting: Rotation Left - Symptoms After Testing: No worse Cervical Sitting: Flexion - Mechanical Response: No effect Cervical Sitting: Flexion - Symptoms During Testing: No effect Cervical Sitting: Flexion - Symptoms After Testing: No effect Balance/Special Test Scores Oswestry Neck Score: 11 Goals Goal 1:: LTG: Pt. to be I with HEP. Goal Time Frame: 4-6 Weeks Goal 2:: LTG: Pt. have full cervical ROM without increase in symptoms. Goal Time Frame: 4-6 Weeks Goal 3:: LTG: Pt. to complete all daily activities without increase in neck or arm pain. Goal Time Frame: 4-6 Weeks Goal 4:: LTG: Pt. to sleep without increase in L sided neck pain. Goal Time Frame: 4-6 Weeks [facility] Physical Therapy Diagnosis: Pt. has signs and symptoms consistent with cervicalgia on the L side. Pt. did have some improvement with US and with UT stretching. P (more content not included)... Normal [facility] Cerv Spine 4 or 5 Viewson Cerv Spine 4 or 5 Views [facility] Imaging Services [address] [place] [address] Cerv Spine 4 or 5 Views MR#: [id number] Acct: [id number] Name: AURY BANUELOS Rep #: [id number] : 1950 F 73 From: Mark Campbell MD PCP: Dr. Ana Winslow DO Status: REG CLI Study: Cerv Spine 4 or 5 Views Date of Exam: 10/11/23 Exam# [id number] Ordering Dr: Ana Winslow DO [id number] STUDY: X-RAY - CERVICAL SPINE REASON FOR EXAM: Female, 73 years old. NECK PAIN TECHNIQUE: 5 view(s) of the cervical spine were obtained. COMPARISON: None FINDINGS: Normal anterior atlantoaxial articulation. Normal odontoid process. Normal cervical lordosis. 2 mm retrolisthesis of C4 on C5 and C5 on C6.. There is multi-level endplate spondylosis. There is multi-level degenerative disc disease with multilevel disc space narrowing. Normal visualized intervertebral neuroforamina. The soft tissue structures are unremarkable. RAD/Cerv Spine 4 or 5 Views IMPRESSION: Degenerative disc disease with retrolisthesis as described above. MRI may be useful. Electronically Signed: Mark Campbell MD at 18:15 EDT , CC: Dr. Ana Winslow DO Garbage Truck Driver: [facility] Tele[facility] ([employer]) AURY BANUELOS ([id number]) 1950 F Date Time Provider Department 05/04/23 ERNA BATRES During your visit today, we recorded the following information about you: Deana ReevesWOOD 05/04/2023 11:54 AM Addendum Patient called requesting a copy of prior surgery done by Dr Batres for a trigger finger in 2016, be faxed to [facility]. Patient to call back with fax number. Aury# [phone] Deana ReevesWOOD May 04, 2023 11:37 AM Patient called back with fax number [phone] fax Done. Allergies As of Date: 05/04/2023 (No Active Allergies) Date Reviewed: 02/01/2019 Reviewed by: Angelica Kimble Ma - Fully Assessed Reason for Visit: Patient Question [[id number]] Cmt: surgery for trigger finger Prescriptions as of 05/04/2023 - lisinopril (ZESTRIL, PRINIVIL) 40 mg tablet Lisinopril LISINOPRIL 40 MG TABS one tablet a day LISINOPRIL [id number] Tiarra Rangel PAYMENT SPECIALIST-GUN STOCKER 09-01-2018 [facility] ([id number]) - HYDROcodone-acetaminop hen (NORCO) 5-325 mg per tablet Take 1 tablet by mouth every 6 hours as needed. - meloxicam (MOBIC) 15 mg tablet Take 1 tablet by mouth once daily. Take with food. - cholecalciferol, Vitamin D3, (VITAMIN D3) 50,000 unit cap capsule Take 1 capsule by mouth once each week. Problem List As Of Date 05/04/2023 Noted Resolved MILD DJD [M15.9] CARPAL TUNNEL SYNDROME [G56.00] Simple chronic bronchitis (HCC) [J41.0] 05/08/2016 ESOPHAGEAL REFLUX [K21.9] OBESITY NOS [E66.9] PAIN IN JOINT, LOWER LEG [M25.569] 01/15/2006 PERSONAL HISTORY OF COLONIC POLYPS [Z86.010] 07/14/2006 PERS HX TOBACCO USE [Z87.891] 06/13/2008 Depressive disorder [F32.A] Calcaneal spur [M77.30] 12/17/2010 Family history of colon cancer [Z80.0] 10/20/2011 Benign neoplasm of rectum and anal canal [D12.8*11/23/2011 Family history of malignant neoplasm of gastroi*11/23/2011 Vitamin D deficiency [E55.9] 03/07/2013 MGUS (monoclonal gammopathy of unknown signific*01/29/2016 Essential hypertension, malignant [I10] 05/26/2016 Obesity, Class III, BMI >= 40 (morbid obesity) *07/27/2016 Left sided sciatica [M54.32] 09/23/2016 Acquired trigger thumb [M65.319] 12/22/2016 Encounter Status:Closed by DEANA REEVES on 05/04/23 Normal [facility] 24 hour urine alpha 2 globul in/total protein ratio by electrophoresis (mass fraction)Ordered By: Dr. Winslow on 04-08-2022 Alpha 2 globulin Elph (24H U) [Mass fraction] 16.5 % . [facility] 24 hour urine beta globulin/ total protein ratio by electrophoresis (mass fraction)Ordered By: Dr. Winslow on 04-08-2022 Beta globulin Elph (24H U) [Mass fraction] 30.3 % . [facility] 24 hour urine gamma globulin /total protein ratio by electrophoresis (mass fraction)Ordered By: Dr. Winslow on 04-08-2022 Gamma globulin Elph (24H U) [Mass fraction] 8.7 % . [facility] Absolute lymphocyte countOrd ered By: Dr. Winslow on 04-08-2022 Lymphocytes Auto (Unsp spec) [#/Vol] 2.23 10*3/uL 0.83-4.51 [facility] Basophil percentageOrdered B y: Dr. Winslow on 04-08-2022 Basophils/100 WBC (Bld) 1.1 % 0-1 [facility] Bilirubin [Mass/Vol] 0.40 mg/dL 0.20-1.00 [facility] Comment on above: For patients on eltr ombopag therapy, use of Dimension [place] TBIL is not recommended. Chloride [Moles/Vol] 102 mmol/L 98-107 [facility] Eosinophils/100 WBC (Bld) 4.1 % 0-5 [facility] Glucose [Mass/Vol] 86 mg/dL 74-106 [facility] LDH [Catalytic activity/Vol] 158 U/L 84-246 [facility] Neutrophils (Bld) [#/Vol] 6.0 10*3/uL 2.0-7.7 [facility] Neutrophils/100 WBC (Bld) 62.3 % 47-70 [facility] Potassium [Moles/Vol] 4.3 mmol/L 3.5-5.1 [facility] Protein [Mass/Vol] 7.8 g/dL 6.4-8.2 [facility] Sodium [Moles/Vol] 140 mmol/L 136-145 [facility] WBC (Bld) [#/Vol] 9.7 10*3/uL 4.4-11.0 [facility] Blood erythrocytes count (nu mber/volume)Ordered By: Dr. Winslow on 04-08-2022 RBC (Bld) [#/Vol] 4.10 10*6/uL 4.2-5.4 [facility] Blood hemoglobin measurement (mass/volume)Ordered By: Dr. Winslow on 04-08-2022 Hemoglobin (Bld) [Mass/Vol] 12.2 g/dL 12.0-15.0 [facility] Blood lymphocytes/100 leukoc ytesOrdered By: Dr. Winslow on 04-08-2022 Lymphocytes/100 WBC (Bld) 23.0 % 19-41 [facility] Blood monocytes/100 leukocyt esOrdered By: Dr. Winslow on 04-08-2022 Monocytes/100 WBC (Bld) 8.8 % 0-10 [facility] Blood platelet mean volumeOr dered By: Dr. Winslow on 04-08-2022 Platelet mean volume (Bld) [Entitic vol] 9.0 fL 6.2-12.0 [facility] Determination of erythrocyte mean corpuscular volume (MCV)Ordered By: Dr. Winslow on 04-08-2022 MCV (RBC) [Entitic vol] 92.9 fL 81-99 [facility] Hematocrit Auto (Bld) [Volum e fraction]Ordered By: Dr. Winslow on 04-08-2022 Hematocrit (Bld) [Volume fraction] 38.1 % 37-47 [facility] Laboratory - Chemistry and C hemistry - challengeOrdered By: Dr. Winslow on 04-08-2022 Albumin [Mass/Vol] 3.8 g/dL 2.9-4.4 [facility] ALP [Catalytic activity/Vol] 62 U/L 45-117 [facility] ALT [Catalytic activity/Vol] 21 U/L 13-56 [facility] CO2 [Moles/Vol] 33.0 mmol/L 21.0-32.0 [facility] Globulin (S) [Mass/Vol] 3.9 g/dL 2.2-4.2 [facility] Urea nitrogen/Creatinine [Mass ratio] 20.9 mg/mg 10-20 [facility] - Hematology and Cell countsOrdered By: Dr. Winslow on 04-08-2022 Erythrocyte distribution width (RBC) [Entitic vol] 49.3 fL 35.1-43.9 [facility] Erythrocyte distribution width (RBC) [Ratio] 14.5 % 11.6-14.6 [facility] Immature granulocytes/100 WBC (Bld) 0.700 % 0.0-0.9 [facility] Comment on above: IG% - Immature Granu locytes (promyelocytes, myelocytes and metamyelocytes) > 1% indicates that a LEFT SHIFT is Present. MCH (RBC) [Entitic mass] 29.8 pg 27.0-32.0 [facility] Nucleated RBC/100 WBC (Bld) [Ratio] 0 % 0-5 [facility] MCHC Auto (RBC) [Mass/Vol]Or dered By: Dr. Winslow on 04-08-2022 MCHC (RBC) [Mass/Vol] 32.0 g/dL 32-36 [facility] No Panel InformationOrdered By: Dr. Winslow on 04-08-2022 Addendum Document Comment . [facility] Comment on above: The SPE pattern demo nstrates a single peak (M-spike) in thegamma region which may represent monoclonal protein. Thispeak may also be caused by circulating immune complexes,cryoglobulins, C-reactive protein, fibrinogen or hemolysis. If clinically indicated, the presence of a monoclonalgammopathy may be confirmed by immuno-fixation, as well asan evaluation of the urine for the presence of Bence-Jonesprotein. Dhgcd-4-Wwmmcapxo 0.3 g/dL 0.0-0.4 [facility] Gdpvl-4-Yfjmegxko 1.0 g/dL 0.4-1.0 [facility] Estimated GFR (MDRD) Amer 79 mL/min >60 [facility] Comment on above: GFR Calc Estimated GFR (MDRD) Non-Af Amer 65 mL/min >60 [facility] Comment on above: Non- GFR Calc Gamma Globulins 1.5 g/dL 0.4-1.8 [facility] Platelets bldOrdered By: Dr. Winslow on 04-08-2022 Platelets (Bld) [#/Vol] 415 10*3/uL 150-450 [facility] Protein Fractions Elph [Inte rp]Ordered By: Dr. Winslow on 04-08-2022 Protein Fractions [Interp] Comment . [facility] Comment on above: Protein electrophore sis scan will follow via computer,mail, or film casting operator delivery. Serum albumin to globulin ra shantelle by protein electrophoresisOrdered By: Dr. Winslow on 04-08-2022 Albumin/Globulin Elph [Mass ratio] 1.0 0.7-1.7 [facility] Serum globulin measurement ( mass/volume)Ordered By: Dr. Winslow on 04-08-2022 Globulin (S) [Mass/Vol] 3.8 g/dL 2.2-3.9 [facility] Serum or plasma albumin hugh urement (mass/volume)Ordered By: Dr. Winslow on 04-08-2022 Albumin [Mass/Vol] 3.9 g/dL 3.2-5.0 [facility] Serum or plasma albumin/glob ulin mass ratioOrdered By: Dr. Winslow on 04-08-2022 Albumin/Globulin [Mass ratio] 1.0 {ratio} 0.9-2.4 [facility] Serum or plasma beta globuli n measurement by electrophoresis (mass/volume)Ordered By: Dr. Winslow on 04-08-2022 Beta globulin Elph [Mass/Vol] 1.0 g/dL 0.7-1.3 [facility] Serum or plasma calcium hugh urement (mass/volume)Ordered By: Dr. Winslow on 04-08-2022 Calcium [Mass/Vol] 10.1 mg/dL 8.5-10.1 [facility] Serum or plasma creatinine m easurement (mass/volume)Ordered By: Dr. Winslow on 04-08-2022 Creatinine [Mass/Vol] 0.91 mg/dL 0.55-1.02 [facility] Comment on above: The validity of the calculated GFR & GFRAA in patients over 70 years has not been determined. Clinical correlation is essential. Serum or plasma urea nitroge n measurement (mass/volume)Ordered By: Dr. Winslow on 04-08-2022 Urea nitrogen [Mass/Vol] 19 mg/dL 7-18 [facility] Thin prep Papanicolaou smear with manual screeningOrdered By: Dr. Winslow on 04-08-2022 Thin prep Papanicolaou smear with manual screening 14 U/L 15-37 [facility] Thin prep Papanicolaou smear with manual screening 5 5-15 [facility] Thin prep Papanicolaou smear with manual screening 0.8 g/dL Not Observed [facility] Total protein bloodOrdered B y: Dr. Winslow on 04-08-2022 Protein [Mass/Vol] 7.6 g/dL 6.0-8.5 [facility] Urine albumin/total protein mass ratio by electrophoresisOrdered By: Dr. Winslow on 04-08-2022 Albumin Elph (U) [Mass fraction] 41.6 % . [facility] Urine alpha 1 globulin/total protein ratio by electrophoresis (mass fraction)Ordered By: Dr. Winslow on 04-08-2022 Alpha 1 globulin Elph (U) [Mass fraction] 3.0 % . [facility] Urine monoclonal protein/tot al protein mass ratio by electrophoresisOrdered By: Dr. Winslow on 04-08-2022 Protein.monoclonal Elph (U) [Mass fraction] See comment [facility] Comment on above: UPE shows asymmetric al beta. Urine protein measurement (m ass/volume)Ordered By: Dr. Winslow on 04-08-2022 Protein (U) [Mass/Vol] 11.2 mg/dL Not Estab. [facility] 24 hour urine alpha 2 globul in/total protein ratio by electrophoresis (mass fraction)on 10-20-2021 Alpha 2 globulin Elph (24H U) [Mass fraction] 17.9 % . [facility] Work Phone: 24 hour urine beta globulin/ total protein ratio by electrophoresis (mass fraction)on 10-20-2021 Beta globulin Elph (24H U) [Mass fraction] 35.5 % . [facility] Work Phone: 24 hour urine gamma globulin /total protein ratio by electrophoresis (mass fraction)on 10-20-2021 Gamma globulin Elph (24H U) [Mass fraction] 14.2 % . [facility] Work Phone: Absolute lymphocyte counton 10-20-2021 Lymphocytes Auto (Unsp spec) [#/Vol] 2.44 10*3/uL 0.83-4.51 [facility] Work Phone: Basophil percentageon 2021 Basophils/100 WBC (Bld) 0.9 % 0-1 [facility] Work Phone: Bilirubin [Mass/Vol] 0.40 mg/dL 0.20-1.00 [facility] Work Phone: Comment on above: For patients on eltr ombopag therapy, use of Dimension [place] TBIL is not recommended. Chloride [Moles/Vol] 101 mmol/L 98-107 [facility] Work Phone: Cholesterol [Mass/Vol] 168 mg/dL <200 [facility] Work Phone: Comment on above: <200 mg/dL Desirable 200-240 mg/dL Borderline >240 mg/dL High Risk Eosinophils/100 WBC (Bld) 5.8 % 0-5 [facility] Work Phone: Glucose [Mass/Vol] 86 mg/dL 74-106 [facility] Work Phone: Neutrophils (Bld) [#/Vol] 6.4 10*3/uL 2.0-7.7 [facility] Work Phone: Neutrophils/100 WBC (Bld) 61.5 % 47-70 [facility] Work Phone: Potassium [Moles/Vol] 4.2 mmol/L 3.5-5.1 [facility] Work Phone: Protein [Mass/Vol] 8.2 g/dL 6.4-8.2 [facility] Work Phone: Sodium [Moles/Vol] 136 mmol/L 136-145 [facility] Work Phone: Triglyceride [Mass/Vol] 119 mg/dL <199 [facility] Work Phone: Comment on above: The drugs N-Acetylcy steine and Metamizole may falsely depress this assay.Serum Triglycerides Reference Interval Normal <150 mg/dL Borderline high 150 - 199 mg/dL High 200 - 499 mg/dL Very High > or = 500 mg/dL WBC (Bld) [#/Vol] 10.3 10*3/uL 4.4-11.0 [facility] Work Phone: Blood erythrocytes count (nu mber/volume)on 10-20-2021 RBC (Bld) [#/Vol] 4.24 10*6/uL 4.2-5.4 [facility] Work Phone: Blood hemoglobin measurement (mass/volume)on 10-20-2021 Hemoglobin (Bld) [Mass/Vol] 13.0 g/dL 12.0-15.0 [facility] Work Phone: Blood lymphocytes/100 leukoc yteson 10-20-2021 Lymphocytes/100 WBC (Bld) 23.6 % 19-41 [facility] Work Phone: [phone] Blood monocytes/100 leukocyt eson 10-20-2021 Monocytes/100 WBC (Bld) 7.9 % 0-10 [facility] Work Phone: Blood platelet mean volumeon 10-20-2021 Platelet mean volume (Bld) [Entitic vol] 8.7 fL 6.2-12.0 [facility] Work Phone: Determination of erythrocyte mean corpuscular volume (MCV)on 10-20-2021 MCV (RBC) [Entitic vol] 92.9 fL 81-99 [facility] Work Phone: Hematocrit Auto (Bld) [Volum e fraction]on 10-20-2021 Hematocrit (Bld) [Volume fraction] 39.4 % 37-47 [facility] Work Phone: Laboratory - Chemistry and C hemistry - challengeon 10-20-2021 ALP [Catalytic activity/Vol] 60 U/L 45-117 [facility] Work Phone: ALT [Catalytic activity/Vol] 25 U/L 13-56 [facility] Work Phone: CO2 [Moles/Vol] 28.0 mmol/L 21.0-32.0 [facility] Work Phone: Globulin (S) [Mass/Vol] 4.5 g/dL 2.2-4.2 [facility] Work Phone: Urea nitrogen/Creatinine [Mass ratio] 24.5 mg/mg 10-20 [facility] Work Phone: Laboratory - Hematology and Cell countson 10-20-2021 Erythrocyte distribution width (RBC) [Entitic vol] 49.1 fL 35.1-43.9 [facility] Work Phone: Erythrocyte distribution width (RBC) [Ratio] 14.5 % 11.6-14.6 [facility] Work Phone: Immature granulocytes/100 WBC (Bld) 0.300 % 0.0-0.9 [facility] Work Phone: Comment on above: IG% - Immature Granu locytes (promyelocytes, myelocytes and metamyelocytes) > 1% indicates that a LEFT SHIFT is Present. MCH (RBC) [Entitic mass] 30.7 pg 27.0-32.0 [facility] Work Phone: Nucleated RBC/100 WBC (Bld) [Ratio] 0 % 0-5 [facility] Work Phone: MCHC Auto (RBC) [Mass/Vol]on 10-20-2021 MCHC (RBC) [Mass/Vol] 33.0 g/dL 32-36 [facility] Work Phone: No Panel Informationon 10-20 Addendum Document Comment . [facility] Work Phone: Comment on above: The SPE pattern demo nstrates a single peak (M-spike) in thegamma region which may represent monoclonal protein. Thispeak may also be caused by circulating immune complexes,cryoglobulins, C-reactive protein, fibrinogen or hemolysis. If clinically indicated, the presence of a monoclonalgammopathy may be confirmed by immuno-fixation, as well asan evaluation of the urine for the presence of Bence-Jonesprotein. Ddqbh-9-Pragorlmg 0.3 g/dL 0.0-0.4 [facility] Work Phone: Sabzw-1-Yrmbhgiso 1.0 g/dL 0.4-1.0 [facility] Work Phone: Estimated GFR (MDRD) Amer 84 mL/min >60 [facility] Work Phone: Comment on above: GFR Calc Estimated GFR (MDRD) Non-Af Amer 70 mL/min >60 [facility] Work Phone: Comment on above: Non- GFR Calc Gamma Globulins 1.7 g/dL 0.4-1.8 [facility] Work Phone: Platelets bldon 10-20-2021 Platelets (Bld) [#/Vol] 400 10*3/uL 150-450 [facility] Work Phone: Protein Fractions Elph [Inte rp]on 10-20-2021 Protein Fractions [Interp] Comment . [facility] Work Phone: Comment on above: Protein electrophore sis scan will follow via computer,mail, or film casting operator delivery. Serum albumin to globulin ra shantelle by protein electrophoresison 10-20-2021 Albumin/Globulin Elph [Mass ratio] 0.9 0.7-1.7 [facility] Work Phone: Serum globulin measurement ( mass/volume)on 10-20-2021 Globulin (S) [Mass/Vol] 4.0 g/dL 2.2-3.9 [facility] Work Phone: Serum or plasma albumin hugh urement (mass/volume)on 10-20-2021 Albumin [Mass/Vol] 3.7 g/dL 2.9-4.4 [facility] Work Phone: Serum or plasma albumin/glob ulin mass ratioon 10-20-2021 Albumin/Globulin [Mass ratio] 0.8 {ratio} 0.9-2.4 [facility] Work Phone: Serum or plasma beta globuli n measurement by electrophoresis (mass/volume)on 10-20-2021 Beta globulin Elph [Mass/Vol] 1.1 g/dL 0.7-1.3 [facility] Work Phone: Serum or plasma calcium hugh urement (mass/volume)on 10-20-2021 Calcium [Mass/Vol] 10.0 mg/dL 8.5-10.1 [facility] Work Phone: Serum or plasma cholesterol in HDL measurement (mass/volume)on 10-20-2021 Cholesterol in HDL [Mass/Vol] 59 mg/dL >40 [facility] Work Phone: Comment on above: The drugs N-Acetylcy steine and Metamizole may falsely depress this assay. Reference Range HDL <40 mg/dL Low HDL Cholesterol HDL >or= 60 mg/dL High HDL Cholesterol Serum or plasma cholesterol in VLDL measurement (mass/volume)on 10-20-2021 Cholesterol in VLDL [Mass/Vol] 24 mg/dL 5-40 [facility] Work Phone: Serum or plasma creatinine m easurement (mass/volume)on 10-20-2021 Creatinine [Mass/Vol] 0.86 mg/dL 0.55-1.02 [facility] Work Phone: Comment on above: The validity of the calculated GFR & GFRAA in patients over 70 years has not been determined. Clinical correlation is essential. Serum or plasma low density lipoprotein (LDL) cholesterol measurement (mass/volume)on 10-20-2021 Cholesterol in LDL [Mass/Vol] 85 mg/dL 0-130 [facility] Work Phone: Serum or plasma urea nitroge n measurement (mass/volume)on 10-20-2021 Urea nitrogen [Mass/Vol] 21 mg/dL 7-18 [facility] Work Phone: Thin prep Papanicolaou smear with manual screeningon 10-20-2021 Thin prep Papanicolaou smear with manual screening 19 U/L 15-37 [facility] Work Phone: Thin prep Papanicolaou smear with manual screening 7 5-15 [facility] Work Phone: Thin prep Papanicolaou smear with manual screening 234 U/L 84-246 [facility] Work Phone: Thin prep Papanicolaou smear with manual screening 0.7 g/dL Not Observed [facility] Work Phone: Total protein bloodon 2021 Protein [Mass/Vol] 7.7 g/dL 6.0-8.5 [facility] Work Phone: Urine albumin/total protein mass ratio by electrophoresison 10-20-2021 Albumin Elph (U) [Mass fraction] 28.7 % . [facility] Work Phone: Urine alpha 1 globulin/total protein ratio by electrophoresis (mass fraction)on 10-20-2021 Alpha 1 globulin Elph (U) [Mass fraction] 3.8 % . [facility] Work Phone: Urine monoclonal protein/tot al protein mass ratio by electrophoresison 10-20-2021 Protein.monoclonal Elph (U) [Mass fraction] See comment [facility] Work Phone: Comment on above: NOT OBSERVED Urine protein measurement (m ass/volume)on 10-20-2021 Protein (U) [Mass/Vol] 8.8 mg/dL Not Estab. [facility] Work Phone: Encounters Encounter Date Encounter Type Care Provider Facility Start: 10-06-2024 ambulatory Justin Ocasio ty:[facility] Start: 08-18-2024 Non-patient / Non-visit Dr. Mendez aleman MD -[facility] Start: 08-18-2024 End: 08-18-[address] Ana Winslow DO Work Phone: [facility] Work Phone: Start: 08-18-2024 End: 08-18-[address] Ana Winslow DO -Cardiovascular Services Work Phone: Start: 08-18-2024 End: 08-18-2024 ambulatory Ana Winslow Facility:[facility] Start: 08-14-2024 End: 08-14-[address] Ana Winslow DO Work Phone: [facility] Work Phone: Start: 08-14-2024 End: 08-14-2024 Discharged Recurring SISSY SHETH FINANCE ATTORNEY-C -Physical Therapy Work Phone: Start: 06-29-2024 Registered Recurring SISSY SHETH FINANCE ATTORNEY-C -Physical Therapy Work Phone: Start: 06-27-2024 End: 06-27-[address] Ana Winslow DO Work Phone: [facility] Work Phone: Start: 06-27-2024 End: 06-27-2024 Patient encounter procedure Sharyn Barron NP-C -Radiology, [place] Work Phone: Start: 06-27-2024 End: 06-27-2024 ambulatory Ana Winslow Facility:[facility] Start: 04-07-2024 End: 04-07-[address] Laverne Hammond MD -Laboratory, [place] Work Phone: Start: 04-07-2024 End: 04-07-2024 ambulatory Laverne Hammond Facility:[facility] Start: 01-12-2024 End: 01-12-2024 ambulatory Ana Malys Facility:[facility] Start: 01-04-2024 End: 01-04-2024 ambulatory Ana Malys Facility:[facility] Start: 12-23-2023 End: 12-23-2023 ambulatory Ana Malys Facility:[facility] Start: 12-22-2023 End: 12-22-2023 ambulatory Justin V Leti Facility:[facility] Start: 10-11-2023 End: 10-11-2023 ambulatory Ana Malys Facility:[facility] Start: 05-04-2023 Telephone encounter Erna lind MD Work Phone: Orthopaedics Comment on above: Patient Question (rosen rgery for trigger finger) Start: 11-02-2022 End: 11-02-[address] [facility] Work Phone: Start: 11-02-2022 End: 11-02-[address] [facility]-Outpatient Breast Imaging Work Phone: Start: 09-17-2022 End: 09-17-[address] [facility] Work Phone: Start: 09-17-2022 End: 09-17-[address] [facility] Start: 09-14-2022 End: 09-14-[address] [facility] Work Phone: Start: 09-14-2022 End: 09-14-[address] [facility]-Cat Scan, [facility] Start: 04-08-2022 End: 04-08-[address] [facility] Work Phone: Start: 04-08-2022 End: 04-08-[address] [facility] Start: 10-27-2021 End: 10-27-[address] [facility]-Outpatient Breast Imaging Start: 10-20-2021 End: 10-20-[address] [facility] Procedures Date Procedure Procedure Detail Performing Clinician Start: 06-27-2024 Plain X-ray abdomen Dr. Ana Winslow DO Work Phone: Start: 11-02-2022 Screening mammography Start: 09-17-2022 End: 09-17-2022 Radiologic examination of knee Start: 09-14-2022 CT of chest Start: 10-27-2021 Screening mammography Start: 07-01-2015 Colonoscopy Erna Batres MD Work Phone: Start: 03-09-2013 Lipid 1996 panel - Serum or Plasma Erna Batres MD Work Phone: H/O: hysterectomy History of hysterectomy History of appendectomy History of append ectomy Plan of Treatment Date Care Activity Detail Author Start: 03-29-2023 Advance Directive Discussion Advance Directive Discussion [facility] Start: 03-29-2023 Depression Assessment Depression Assessment [facility] Start: 11-27-2022 Influenza [facility] Start: 09-17-2022 End: 09-17-2022 Radiologic examination of knee Knee [address] [facility] Start: 09-17-2022 XR Knee GE [address] [facility] Start: 12-17-2021 Urine microalbumin profile DTaP,Tdap,Td Vaccine (3 - Td or Tdap) [facility] Start: 10-20-[address] [facility] Work Phone: Start: 09-23-2021 Pneumococcal Vaccine: 65+ (3 of 3 - PPSV23 or PCV20) Pneumococcal Vaccine: 65+ (3 of 3 - PPSV23 or PCV20) [facility] Start: 06-30-2020 Screening for malignant neoplasm of colon [facility] Start: 04-14-2020 Screening for malignant neoplasm of breast Mammogram Screening [facility] Start: 10-22-2019 Diabetes Screening Diabetes Screening [facility] Start: 03-09-2018 Lipid panel Lipid Screening [facility] Start: 11-02-2012 Shingrix Vaccine (2 of 3) Shingrix Vaccine (2 of 3) [facility] Start: 2012 RSV Vaccine (1 - 1-dose 60+ series) RSV Vaccine (1 - 1-dose 60+ series) [facility] Start: 06-19-2006 Screening for malignant neoplasm of colon Fecal Occult Blood [facility] Start: 1997 Screening for malignant neoplasm of colon [facility] Start: 1970 Hepatitis C screening Hepatitis C Screening [facility] Start: 1950 Covid-19 Vaccine (#1) Covid-19 Vaccine (#1) [facility] Albumin/Globulin [Ma ss Ratio] in Serum or Plasma by Electrophoresis [facility] Work Phone: Electrophoresis: albumin [facility] Work Phone: Electrophoresis: [id number] [facility] Work Phone: Electrophoresis: [id number] [facility] Work Phone: Electrophoresis: anmol ma globulin [facility] Work Phone: Fluid sample globuli n level [facility] Work Phone: Globulin measurement [facility] Work Phone: Measurement of monoc lonal protein concentration [facility] Work Phone: Protein [Mass/volume ] in Urine [facility] Work Phone: Protein electrophore sis panel - Serum or Plasma [facility] Work Phone: Protein measurement, urine [facility] Work Phone: Serum protein electrophoresis [facility] Work Phone: Total globulins measurement [facility] Work Phone: Urine albumin measurement [facility] Work Phone: Immunizations Immunization Date Immunization Notes Care Provider Carl tan 06-20-2020 Covid (Pfizer) [facility] 05-30-2020 Covid (Pfizer) [facility] 01-28-2020 Influenza virus vaccine [facility] 02-28-2018 influenza virus vacc ine, unspecified formulation Erna Batres MD Work Phone: [facility] 12-01-2016 influenza, injectabl e, quadrivalent, contains preservative Erna Batres MD Work Phone: [facility] 09-23-2016 pneumococcal conjuga te vaccine, 13 valent Erna Batres MD Work Phone: [facility] 12-28-2015 Influenza virus vaccine [facility] 12-18-2015 influenza, injectabl e, quadrivalent, contains preservative Erna Batres MD Work Phone: [facility] 12-20-2014 influenza, injectabl e, quadrivalent, contains preservative Erna Batres MD Work Phone: [facility] 01-04-2014 influenza, seasonal, injectable Erna Batres MD Work Phone: [facility] 03-14-2013 influenza virus vacc ine, unspecified formulation Erna Batres MD Work Phone: [facility] Work Phone: 03-10-2013 pneumococcal polysaccharide vaccine, 23 valent Erna Batres MD Work Phone: [facility] 09-07-2012 zoster vaccine, live Erna Batres MD Work Phone: [facility] 12-18-2011 influenza virus vacc ine, unspecified formulation Erna Batres MD Work Phone: [facility] 12-18-2011 tetanus toxoid, redu leena diphtheria toxoid, and acellular pertussis vaccine, adsorbed Erna Bartes MD Work Phone: [facility] 06-28-2003 diphtheria and tetan us toxoids, adsorbed for pediatric use Erna Batres MD Work Phone: [facility] Work Phone: Payers Date Payer Category Payer Medicare [id number] 2023 Self-pay [id number] 2023 [facility] [id number] 2017 Private Health Insurance [facility] AARP SUPPLEMENT [id number] 2017-Present [phone] [address] [place] [address] Indemnity [id number] 2017 Medicare MEDICARE MEDICAR E A AND B [id number] 2017-Present [phone] [place] [address] Medicare [id number] 2015 Unknown [id number] Unknown [id number] Unknown [id number] Unknown [id number] Unknown [id number] Unknown [id number] Unknown [id number] Unknown [id number] Unknown [id number] Unknown [id number] Unknown [id number] Unknown [id number] Social History Date Type Detail Facility Start: 05-10-2020 End: 05-10-2020 Tobacco smoking status NHIS Unknown if ever smoked [facility] Start: 05-10-2020 Non-smoker [facility] Start: 1950 [place] [facility]igned [facility] [place] [facility] Start: 12-31-2015 End: 05-10-2020 Tobacco smoking status NHIS Ex-smoker [facility] End: 12-21-2011 History of tobacco use Current smoker [facility] End: 12-21-2011 History of tobacco use Cigarette Smoker [facility] Start: 12-31-2015 End: 03-03-2020 Cigarettes smoked current (pack per day) - Reported 0.8 [facility] Start: 12-31-2015 Tobacco use and exposure Smokeless tobacco non-user [facility] Start: 02-01-2019 Alcohol intake Current drinke r of alcohol (finding) [facility] Start: 02-01-2019 End: 03-03-2020 Tobacco use panel [facility] National Score (1-10 0), lower number is lower risk Not on file [facility] Start: 07-01-2015 [facility] Start: 04-08-2019 Gender identity Identifies as female gender (finding) [facility] Start: 04-08-2019 Sexual orientation Heterosexual (fin ding) [facility] Start: 07-04-2024 Sex Female (finding) [facility] Procedure Code Equipment Code Equipment Origin al Text Equipment Identifier Dates MESH, AXIS DERMIS FDA Start: 05-17-2020 SLING, ALTIS VAGINAL FDA Star t: 05-17-2020 MESH, AXIS DERMIS FDA Start: 05-17-2020 SLING, ALTIS VAGINAL FDA Star t: 05-17-2020 MESH, AXIS DERMIS FDA Start: 05-17-2020 SLING, ALTIS VAGINAL FDA Star t: 05-17-2020 MESH, AXIS DERMIS FDA Start: 05-17-2020 SLING, ALTIS VAGINAL FDA Star t: 05-17-2020 MESH, AXIS DERMIS FDA Start: 05-17-2020 SLING, ALTIS VAGINAL FDA Star t: 05-17-2020 MESH, AXIS DERMIS FDA Start: 05-17-2020 SLING, ALTIS VAGINAL FDA Star t: 05-17-2020 MESH, AXIS DERMIS FDA Start: 05-17-2020 SLING, ALTIS VAGINAL FDA Star t: 05-17-2020 MESH, AXIS DERMIS FDA Start: 05-17-2020 SLING, ALTIS VAGINAL FDA Star t: 05-17-2020 MESH, AXIS DERMIS FDA Start: 05-17-2020 SLING, ALTIS VAGINAL FDA Star t: 05-17-2020 Discharge summary 08-14-2024 Note Date & Type Note Facility 08-14-2024 Discharge summary Note Date/Time August 14, 2024 7:00p m [facility] Physical Therapy [facility] [address] [place] [address] / REHABILITATION SERVICES DISCHARGE SUMMARY MR#: [id number] Acct: [id number] Name: AURY BANUELOS Rep #: [id number] 22 : 1950 74 From: Mendez Dennis DPT, OCS, CSCS Referring Dr.: SISSY SHETH Status: REG RCR Insurance: MEDICARE PART A B AAR Discharge Summary D/C summary: It has been my pleasure to treat AURY BANUELOS referred by DAYAMI PEREZ, with the diagnosis of s/p R TKA 05/25/24 for a total of 7 visit(s). Discharge Date: 08/14/24 Please see the following information for a summary of their discharge status. Subjective Subjective: having an US due to calf pain intermittently. Otherwisee leg holding her up well. Still doing home exercises at sink. Exercising at home. sleeping well. Avoiding long walks but can walk 100 yards or so. Would like towalk dog to end of street, avoiding full walk as it feels weak. Saw surgeon 2 weeks ago and not agin for a year. Pain R knee: Pain Intensity (Out of 10): 0 Overall Improvement % Improvement: 100 Objective Objective/Function: 0 - 118 AROM Walking without antalgia today. steps reciprocally with one rail without weakness. overall excellent presentation without excessive swelling adn - taya. Goals Goal 1:: FGA score 27/30 Goal Progress: Goal Met Goal 2:: TUG less than 10 seconds Goal Progress: Goal Met Goal 3:: 0-122 AROM to aid in comfort on steps Goal Progress: Progressing Goal 4:: Steps up and down 2 flights with one rail I without deviations Goal Progress: Goal Met Goal 5:: womac score less than 15 Goal Progress: Goal Met Goal 6:: Pt feel 95% back to normal activity and I in continued gym strength program Goal Progress: Goal Met Plan Plan: d/c to HEP D/C Information d/c sentence: If there are questions or concerns regarding this patient's physical therapy, please feel free to call me at [phone]. Thank you for the referral of thispatient. Sincerely, Mendez Dennis, DPT, OCS, CSCS Balance/Gait/Functional tests Balance/Special Test Scores Functional Gait Assessment Score: 27 % Disability: 10.0000 TUG Test Time Seconds: 8 Tug Test: <10 sec.=free mobile WOMAC Total Score: 8 WOMAC Percentage: 91.6700 Improvement % Improvement: 100 <Electronically signed by Mendez Dennis DPT, OCS, CSCS> 08/14/24 1522 CC: Dr. Ana Winslow DO; SISSY SHETH ~ EBG Signed [facility] Work Phone: Discharge summary 08-14-2024 Note Date & Type Note Facility 08-14-[address] [facility] Radiology Diagnostic study note 06-27-2024 Note Date & Type Note Facility 06-27-2024 Radiology Diagnostic study note [facility] Imaging Services [address] [place] [address] [id number] Abdomen Single View MR#: [id number] Acct: [id number] Name: AURY BANUELOS Rep #: [id number] 50 : 1950 F 74 From: Beryl Melgar MD PCP: Dr. Ana Winslow DO Status: REG CLI Study:Abdomen Single View Date of Exam: 06/27/24 Exam# [id number] Ordering Dr: Ra georges Barron FINANCE ATTORNEY-C EXAM: XR Abdomen, 1 View CLINICAL INDICATION: ASSESS STOOL BURDEN TECHNIQUE: Frontal supine view of the abdomen/pelvis. COMPARISON: No relevant prior studies available. FINDINGS: GASTROINTESTINAL TRACT: Moderate volume fecal retention in the colon consistentwith constipation. No dilation. BONES/JOINTS: Unremarkable. No acute fracture. RAD/Abdomen Single View IMPRESSION: Moderate volume fecal retention in the colon consistent with constipation. Reading Location: [facility] CC: DAYAMI Barron; Dr. Ana Winslow, DO ~ Garbage Truck Driver: Signed [facility] Note 05-04-2023 Telephone Encounter - Deana Reeves LPN - 05/04/2023 11:31 AM EST Note Date & Type Note Facility 05-04-2023 Miscellaneous Notes Formattin g of this note might be different from the original. Patient called requesting a copy of prior surgery done by Dr Batres for a trigger finger in 2016, be faxed to [facility]. Patient to call back with fax number. Aury# [phone] Deana Reeves LPN May 04, 2023 11:37 AM Patient called back with fax number [phone] fax Done. documented in this encounter [facility] History of Past illness Narrative 05-08-2016 Note Date & Type Note Facility 05-08-2016 History of Past i llness Narrative Problem Noted Date Diagnosed Date Resolved Date Simple chronic bronchitis Overview: Moderate based on PFTs 09/2011 documented as of this encounter (statuses as of 05/04/2023) [facility] Evaluation note Note Date & Type Note Facility Evaluation note No assessment information availa ble [facility] Work Phone: Reason for referral (narrative) Note Date & Type Note Facility Reason for referral (narrative) No reason for referral information available [facility] Work Phone: Family History No Family History Records Found Relationship Condition Age at Onset Recorded Date/T freddie mother Asthma Unknown Malignant neoplasm of colon Unknown aunt Malignant neoplasm of colon Unknown father Malignant neoplasm Unknown Advance Directives No Advanced Directives Records Found Advance Directive Response Recorded Date/ Time Living Will No May 17 12:33pm Power of Charging Board Operator No May 17, 2020 12:33pm Advance Directive Response Recorded Date/ Time Living Will No May 17 11:33am Power of Charging Board Operator No May 17, 2020 11:33am Chief Complaint and Reason for Visit Chief Complaint SCREENING Chief Complaint Personal history of nicotine dependence BERNADINE KNEE XRAYS Chief Complaint Personal history of nicotine dependence BERNADINE KNEE XRAYS SCREENING Chief Complaint Admit Date PAIN- COPY PCP April 07, 2024 9 :48am ABDOMINAL PAIN June 27, 2024 11:2 0am BILATERAL OA OF KNEES. RX HERE June 9:30am Chief Complaint Admit Date ABDOMINAL PAIN June 27, 2024 11:2 0am BILATERAL OA OF KNEES. RX HERE August 14, 2024 3:00pm Chief Complaint Admit Date ABDOMINAL PAIN June 27, 2024 11:2 0am BILATERAL OA OF KNEES. RX HERE August 14, 2024 3:00pm RT LEG PAIN, R/O DVT August 18, 2024 12:5 1pm Summary Purpose Additional Source Comments Goals (unrecognized section and content) Goals may be documented in a n alternate sectionGoals may be documented in an alternate sectionGoals may be documented in an alternate sectionGoals may be documented in an alternate sectionGoals may be documented in an alternate sectionGoals may be documented in an alternate sectionGoals may be documented in an alternate sectionGoals may be documented in an alternate sectionGoals may be documented in an alternate section Care Teams (unrecognized sec tion and content) Team Status: Active Member Role Status Dates Dr. Aan Winslow DO Family Provider Active Dr. Ana Winslow DO Primary Care Provider Active Team Status: Inactive Member Role Status Dates Dr. Ana Winslow DO Primary Care Provide r, Attending Provider, Referring Provider Active Team Status: Inactive Member Role Status Dates Dr. Ana Winslow DO Primary Care Provider Active Dr. Justin Landeros MD Attending Provider, Referrin g Provider Active Team Status: Active Member Role Status Dates Dr. Ana Winslow DO Primary Care Provide r, Attending Provider, Referring Provider Active Team Status: Active Member Role Status Dates Dr. Ana Winslow DO Primary Care Provider Active Team Status: Inactive Member Role Status Dates Dr. Ana Winslow DO Primary Care Provider Active Start: April 07, 2024 End: April 07, 2024 Dr. Laverne Hammond MD Attending Provider Active Start: April 07, 2024 End: April 07, 2024 Dr. Laverne Hammond MD Referring Provider Active Start: April 07, 2024 End: April 07, 2024 Team Status: Inactive Member Role Status Dates Dr. Ana Winslow DO Primary Care Provider Active Start: June 27, 2024 End: June 27, 2024 DAYAMI Ricardo Attending Provider Active St art: June 27, 2024 End: June 27, 2024 DAYAMI Ricardo Referring Provider Active St art: June 27, 2024 End: June 27, 2024 Team Status: Active Member Role Status Dates Dr. Ana Winslow DO Primary Care Provider Active Start: June 29, 2024 SISSY SHETH NP-C Attending Provider Active Start: June 29, 2024 SISSY SHETH NP-C Referring Provider Active Start: June 29, 2024 Team Status: Inactive Member Role Status Dates Dr. Ana Winslow DO Primary Care Provider Active Start: August 14, 2024 End: August 14, 2024 SISSY SHETH NP-C Attending Provider Active Start: August 14, 2024 End: August 14, 2024 SISSY SHETH NP-C Referring Provider Active Start: August 14, 2024 End: August 14, 2024 Team Status: Inactive Member Role Status Dates Dr. Ana Winslow DO Primary Care Provider Active Start: August 18, 2024 End: August 18, 2024 Dr. Ana Winslow DO Attending Provider Active St art: August 18, 2024 End: August 18, 2024 Dr. Ana Winslow DO Referring Provider Active St art: August 18, 2024 End: August 18, 2024 Team Status: Active Member Role Status Dates Dr. Ana Winslow DO Primary Care Provider Active Start: August 18, 2024 Dr. Mendez Storey MD Attending Provider Active S tart: August 18, 2024 Source Comments (unrecognize d section and content) In the event this informatio n is protected by the Federal Confidentiality of Alcohol and Drug Abuse Patient Records regulations: The Federal rules restrict any use of the information to criminally investigate or prosecute any alcohol or drug abuse patient.[facility] Reason for Visit (unrecogniz ed section and content) Reason Comments Patient Question surgery for trigger finger INFORMATION SOURCE (unrecogn ized section and content) DATE CREATED AUTHOR 05/05/2023 [facility] DATE CREATED AUTHOR AUTHOR'S REHANA MC 09/20/2024 [facility] FOR RECORDS PERTAINING TO PATIENTS WHO ARE OR HAVE BEEN ENROLLED IN A CHEMICAL DEPENDENCY/SUBSTANCEABUSE PROGRAM, SOME INFORMATION MAY BE OMITTED. This clinical summary was aggregated from multiple sources. Caution should be exercised in using it in the provision of clinical care. This summary normalizes information from multiple sources, and as a consequence, information in this document may materially change the coding, format and clinical context of patient data. In addition, data may be omitted in some cases. CLINICAL DECISIONS SHOULD BE BASED ON THE PRIMARY CLINICAL RECORDS. [employer] provides no warranty or guarantee of the accuracy or completeness of information in this document.
[2024-10-26 17:08] LABS: PROELU- Albumin, Urine 47.8 % (.); PROELU- Alpha-1-Globulin,Ur 3.8 % (.); PROELU- Alpha-2-Globulin,Ur 8.5 % (.); PROELU- Beta Globulin, Ur 34.2 % (.); PROELU- Gamma Globulin, Ur 5.8 % (.); PROELU- M-Spike, Ur 2.9 % (Not Observed); Total Protein, Ur 14.0 mg/dL (Not Estab.)
== END | disposition home or self-care (01) ==
LOC: MTLAB 10:10
PROVIDERS: PCP Family Medicine; Referring Provider Family Medicine; Visit Provider Family Medicine
DX: D47.2 Monoclonal gammopathy (principal); D64.9 Anemia, unspecified; E78.5 Hyperlipidemia, unspecified; Z51.81 Encounter for therapeutic drug level monitoring
CPT/HCPCS: 36415; 80053; 80061; 83615; 84165; 84166; 84443; 85025

== ENCOUNTER → 2024-11-01 | Outpatient (CLI) | payer MEDICARE, OTHER, SELFPAY ==
--- NOTE | 2024-11-01 14:25 | CT_ITS ---
PROCEDURE: LOW DOSE CT LUNG SCREENING 11/01/2024 REASON FOR EXAM: HX NICOTINE DEPENDENCE Former smoker. COPD TECHNIQUE: LOW DOSE CT LUNG SCREENING Coronal and Sagittal reconstruction series were provided. One or more dose reduction techniques were used (e.g., Automated exposure control, adjustment of the mA and/or kV according to patient size, use of iterative reconstruction technique). REFERENCE LINK: [email or web address] Lung-RADS RADIATION DOSE SUMMARY: CTDlvol: 14.1 mGy DLP: 597.07 mGycm FINDINGS: PULMONARY NODULES: (Only nodules >3mm are reported) Nodules described below are on series 1 unless otherwise specified. Pulmonary Nodules: No suspicious pulmonary nodule is seen. Hardware:None Lymph Nodes:Small benign-appearing mediastinal lymph nodes. Heart and Vasculature:The heart is nonenlarged.Atherosclerotic calcifications of the thoracic aorta. Thoracic aorta and pulmonary arteries have normal contours; noncontrast technique limits evaluation. Coronary Artery Calcifications: Present Lungs and Airways: Mild emphysematous changes are present. Stable scarring in the lingular segment of the left upper lobe as well as in the right lung apex and both lung bases. Pleura:No pleural effusion. Upper Abdomen:Unremarkable Bones:Degenerative changes of the thoracic spine. CT/Low Dose CT Lung Screening IMPRESSION: No suspicious nodules are seen. Coronary artery calcification (CAC) is is present Lung-RADS Category: 2 BENIGN (BASED ON IMAGING FEATURES OR INDOLENT BEHAVIOR). RECOMMEND 12-MONTH SCREENING LDCT. Other Significant Findings: Reading Location: [facility]
--- NOTE | 2024-11-01 14:25 | CT_ITS ---
PROCEDURE: SPINE CERVICAL WITHOUT CONTRAS 11/01/2024 REASON FOR EXAM: CERVICAL SPINAL STENOSIS Chronic neck pain. TECHNIQUE: SPINE CERVICAL WITHOUT CONTRAS Coronal and Sagittal reconstruction series were provided. One or more dose reduction techniques were used (e.g., Automated exposure control, adjustment of the mA and/or kV according to patient size, use of iterative reconstruction technique. RADIATION DOSE SUMMARY: CTDlvol: 14.01 mGy DLP: 597.07 mGycm COMPARISON: None FINDINGS: Alignment: Straightening of the normal cervical lordosis. Vertebrae: Anterior spondylosis at the C4-C5 C5-C6 and C6-C7 levels. Soft Tissues: No prevertebral soft tissue swelling. Other: Atherosclerotic calcific plaques of the carotid bifurcations. C1-2: Unremarkable C2-3: Minimal anterior listhesis of C2 on C3 most likely secondary to facet joint osteoarthritis. Facet joint osteoarthritis and hypertrophy worse on the left side. Mild left neural foraminal stenosis. C3-4: Minimal anterior listhesis of C3 on C4. Facet joint osteoarthritis and hypertrophy worse on the left side. C4-5: Marked degree of disc space narrowing and disc degeneration with spondylosis. Uncovertebral arthrosis. Bilateral neural foraminal stenosis. C5-6: Marked degree of disc space narrowing. Spondylosis. Uncovertebral arthrosis. Central posterior spondylosis causing deformity of the central aspect of the thecal sac. C6-7: Marked degree of disc space narrowing. Uncovertebral arthrosis. C7-T1: CT/Spine Cervical without Contras IMPRESSION: DEGENERATIVE CHANGES OF THE CERVICAL SPINE. NO EVIDENCE OF SIGNIFICANT OSSEOUS CENTRAL CANAL OR NEURAL FORAMINAL STENOSIS. Reading Location: [facility]
== END | disposition home or self-care (01) ==
PROVIDERS: PCP Family Medicine; Referring Provider Clinical Nurse Specialist Adult Health; Visit Provider Clinical Nurse Specialist Adult Health
DX: Z12.2 Encounter for screening for malignant neoplasm of respiratory organs (principal); Z87.891 Personal history of nicotine dependence; M48.02 Spinal stenosis, cervical region
CPT/HCPCS: 71271; 72125

== ENCOUNTER → 2024-11-10 | Outpatient (CLI) | payer MEDICARE, OTHER, SELFPAY ==
[2024-11-14 15:08] LABS: PROEL- A/G Ratio 1.1 (0.7-1.7); PROEL- Albumin 3.9 g/dL (2.9-4.4); PROEL- Alpha-1 Globulin 0.3 g/dL (0.0-0.4); PROEL- Alpha-2 Globulin 0.9 g/dL (0.4-1.0); PROEL- Beta Globulin 0.9 g/dL (0.7-1.3); PROEL- Gamma Globulin 1.3 g/dL (0.4-1.8); PROEL- Globulin, Total 3.4 g/dL (2.2-3.9); PROEL- TOTAL PROTEIN 7.3 g/dL (6.0-8.5); PROEL-M-Spike 0.7 g/dL (Not Observed); PROELU- Albumin, Urine 26.6 % (.); PROELU- Alpha-1-Globulin,Ur 4.1 % (.); PROELU- Alpha-2-Globulin,Ur 13.5 % (.); PROELU- Beta Globulin, Ur 41.9 % (.); PROELU- Gamma Globulin, Ur 13.9 % (.); Total Protein, Ur 12.5 mg/dL (Not Estab.)
== END | disposition home or self-care (01) ==
LOC: BFHLAB 10:15
PROVIDERS: PCP Family Medicine; Visit Provider Family Medicine
DX: D47.2 Monoclonal gammopathy (principal); D64.9 Anemia, unspecified; Z51.81 Encounter for therapeutic drug level monitoring; E78.5 Hyperlipidemia, unspecified
CPT/HCPCS: 84165; 84166

== ENCOUNTER → 2025-02-06 | Outpatient (CLI) | payer MEDICARE, OTHER, SELFPAY ==
--- NOTE | 2025-02-06 13:20 | BI_ITS ---
EXAM: SCRN MAMM (CAD)W/ALESSIO BILAT DATE: 02/06/2025 CLINICAL HISTORY: F, Age 74 y/o , SCREENING Aunt with breast cancer. TECHNIQUE: Procedure Code: [id number] Modality: MG Procedure: SCRN MAMM (CAD)W/ALESSIO BILAT COMPARISON: Prior exam(s) dated January 04, 2024.. FINDINGS: TISSUE DENSITY: The breasts are almost entirely fatty. Bilateral Breast Mammographic Findings: No significant masses, calcifications or other abnormalities are identified. Stable benign-appearing bilateral axillary lymph nodes. No suspicious masses, areas of developing architectural distortion, or suspicious calcifications. There has been no significant interval change. BI/SCRN MAMM (CAD)W/ALESSIO BILAT IMPRESSION: Stable bilateral screening mammogram. OVERALL FINAL ASSESSMENT BI-RADS 2: BENIGN RECOMMENDATION: Routine annual follow-up in 1 Year Additional Recommendation none A letter with findings and recommendations will be mailed to the patient. Reading Location: [facility]
== END | disposition home or self-care (01) ==
PROVIDERS: PCP Family Medicine; Referring Provider Family Medicine; Visit Provider Family Medicine
DX: Z12.31 Encounter for screening mammogram for malignant neoplasm of breast (principal)
CPT/HCPCS: 77063; 77067